=== PATIENT | female | born 1945 | race Caucasian/White ===

== ENCOUNTER → 2016-06-28 | Day surgery (SDC) | payer MEDICARE ==
[~2016-06-28] MED LIST: BACITRACIN OINT 1 EACH PACKET TOPICAL ONE; LIDOCAINE 1% INJ 10MG/ML (20 ML MDV) ONE; SODIUM BICARB 4% 5 ML VIAL (0.48 MEQ/ML) ONE
--- NOTE | 2016-06-28 11:11 | MM ---
EXAMINATION TYPE: MG stereo VAD BX RT DATE OF EXAM: 06/28/2016 9:31 AM COMPARISON: Mammogram 05/23/2016 and 05/20/2016 CLINICAL HISTORY: Abnormal mammogram TECHNIQUE: Stereotactic guided core biopsy of right breast. FINDINGS: The procedure of stereotactic guided core biopsy was explained to the patient. Benefits, alternatives, and risks were discussed. An informed consent was then obtained. [facility] Shortness pathway was utilized. I performed the localization, then surgeon, Dr. Ivan Robb performed the remainder of the procedure. A vacuum assisted biopsy gun was used to obtain multiple core samples. The patient tolerated the procedure well without any immediate complication. The patient was kept in the radiology department for short stay after the procedure and then discharged home in stable condition. Targeted calcifications are identified in specimen mammogram. Post biopsy mammogram shows the clip to appear in satisfactory position relative to the targeted area of concern on the preprocedure images. IMPRESSION: SUCCESSFUL, UNCOMPLICATED STEREOTACTIC GUIDED CORE BIOPSY OF AREA OF CONCERN IN THE right BREAST, FULL PATHOLOGY RESULTS TO FOLLOW. 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 SEE SURGICAL PATHOLOGY CANCER CASE SUMMARY. Recommendation Surgical consult of the right breast. LEIA
--- NOTE | 2016-06-28 15:39 | PCN ---
DATE OF PROCEDURE: PREPROCEDURE DIAGNOSIS: Microcalcifications, right breast. POSTPROCEDURE DIAGNOSIS: Microcalcifications, right breast. PROCEDURE: Stereotactic right breast, core biopsy. SURGEON: Dr. Suarez. ANESTHESIA: Local. PROCEDURE: The patient was placed in the stereotactic table and the area of concern in the right breast was localized. 1% lidocaine was used to anesthetize the area of concern. The needle was driven to the correct coordinates. Multiple core biopsies were obtained. Radiograph of the specimen revealed that the area of concern had been sampled showing microcalcifications in the specimen. A marking clip was left behind. Specimens were sent for pathologic evaluation. The patient tolerated the procedure in stable condition.
== END ==
LOC: RADMAMWWP 07:22
PROVIDERS: ATTEND Surgery
DX: D05.11 Intraductal carcinoma in situ of right breast (principal); N64.89 Other specified disorders of breast; R92.8 Other abnormal and inconclusive findings on diagnostic imaging of breast; Z88.8 Allergy status to other drugs, medicaments and biological substances
CPT/HCPCS: 88305; 88342; 88341; 19081; A4648; J2001

== ENCOUNTER → 2016-07-04 | Outpatient (CLI) | payer MEDICARE ==
--- NOTE | 2016-07-04 16:12 | US ---
EXAMINATION TYPE: US thyroid st tissue head/neck DATE OF EXAM: 07/04/2016 3:39 PM COMPARISON: NONE TECHNIQUE: Multiple sonographic images of the thyroid gland are obtained. CLINICAL HISTORY: 70-year-old female with secondary hypertension, hair loss, fatigue. FINDINGS: Right Lobe: 3.7 x 1.6 x 1.4cm Left Lobe: 3.7 x 2.3 1.1cm Isthmus Thickness: 0.1cm Overall homogeneous glandular parenchyma. Somewhat low positioning of the thyroid gland especially th e left lobe causes difficulty in obtaining sagittal images. No discrete nodule is seen. IMPRESSION: Slightly low positioning of the thyroid gland causing some technical difficulties during visualizatio n. No discrete nodule is seen.
== END | disposition home or self-care (01) ==
LOC: RADUSMAIN 14:47
PROVIDERS: ATTEND Internal Medicine Endocrinology, Diabetes & Metabolism
DX: I15.9 Secondary hypertension, unspecified (principal)
CPT/HCPCS: 36415; 76536; 84439; 84443; 84480

== ENCOUNTER 2016-07-14 22:52 | Emergency (ER) | payer MEDICARE ==
[2016-07-14 23:13] VITALS: TEMP 98.1
[2016-07-15 00:13] LABS: Basophils % (A) 1 %; CH 32.6; CHCM 34.4; Eosinophils # (A) 0.1 k/uL (0-0.7); Eosinophils % (A) 2 %; HCT 42.4 % (34.0-46.0); HDW 2.45; HGB 14.1 gm/dL (11.4-16.0); Luc # (Auto) 0.11; Luc % (Auto) 2; Lymphocytes # (A) 2.9 k/uL (1.0-4.8); Lymphocytes % (A) 47 %; MCH 31.7 pg (25.0-35.0); MCHC 33.3 g/dL (31.0-37.0); MCV 95.2 fL (80.0-100.0); Mean Platelet Volume 7.6; Monocytes # (A) 0.4 k/uL (0-1.0); Monocytes % (A) 6 %; Neutrophils # (A) 2.7 k/uL (1.3-7.7); Neutrophils % (A) 43 %; RBC 4.46 m/uL (3.80-5.40); RDW 12.4 % (11.5-15.5); WBC 6.2 k/uL (3.8-10.6); WBC (Perox) 5.94
[2016-07-15 00:22] LABS: Partial Thromboplastin Time 22.4 sec (22.0-30.0); Prothrombin Time 9.9 sec (9.0-12.0)
--- NOTE | 2016-07-15 00:28 | XR ---
EXAMINATION TYPE: XR chest 2V DATE OF EXAM: 07/15/2016 12:18 AM COMPARISON: 09/25/2015 HISTORY: Chest pain TECHNIQUE: Frontal and lateral views of the chest are obtained. FINDINGS: Mild chronic interstitial lung changes are suggested. There is no focal air space opacity, pleural effusion, or pneumothorax seen. The cardiac silhouette size is within normal limits. The osseous structures are intact. IMPRESSION: 1. No acute cardiopulmonary process. 2. No significant interval change.
[2016-07-15 00:29] LABS: ALT 34 U/L (9-52); AST 26 U/L (14-36); Alkaline Phosphatase 93 U/L (38-126); Anion Gap 11 mmol/L; Blood Urea Nitrogen 21 mg/dL (7-17); Calcium 9.9 mg/dL (8.4-10.2); Carbon Dioxide 27 mmol/L (22-30); Chloride 105 mmol/L (98-107); Glucose 96 mg/dL (74-99); Magnesium 2.3 mg/dL (1.6-2.3); Non-African American GFR(MDRD) >60 (>60 ml/min/1.73 sqM); Sodium 143 mmol/L (137-145); Total Bilirubin 0.4 mg/dL (0.2-1.3); Total Protein 6.8 g/dL (6.3-8.2)
[2016-07-15 00:32] LABS: Creatine Kinase 61 U/L (30-135)
[2016-07-15] MEDS ORDERED: hydrALAZINE HCL 20 MG/ML 1 ML VIAL IVP STA (00:43)
[2016-07-15 00:45] LABS: Creatine Kinase MB 0.8 ng/mL (0.0-2.4); Troponin I <0.012 ng/mL (0.000-0.034)
--- NOTE | 2016-07-15 00:47 | ED ---
General Adult HPI - General Chief complaint: Recheck/Abnormal Lab/Rx Stated complaint: Hypertension Time Seen by Provider: 07/14/16 23:48 Source: patient, RN notes reviewed Mode of arrival: ambulatory Limitations: no limitations - History of Present Illness Initial comments: This is a 70-year-old female who presents with high blood pressure. Patient states she has had a recen increase in the dose of her blood pressure medication and has been keeping a log of blood pressures at home. Patient states when her systolic blood pressure reached over to 200 she was concerned and came to the EC. Patient states she gets intermittent panic attacks over the past year. Patient states they've been getting worse due to her recent diagnosis of right-sided breast cancer 6 weeks ago. Patient is not receiving any current treatment for this. Patient states her high blood pressure today triggered another panic attack. Patient complains of chest tightness in the EC today but denies any shortness of breath. Patient denies any headache, visual changes, dizziness. Patient states she took her blood pressure medication. Patient also admits that she has "whitecoat syndrome". Patient states she is following with her doctor to try to figure out why her blood pressure is not controlled on blood pressure medication. Patient denies any recent fever, chills , abdominal pain, nausea/vomiting/diarrhea, back pain, numbness, tingling, hematuria, or any other complaints. - Related Data Home Medications Medication Instructions Recorded Confirmed Ascorbic Acid [Vitamin C] 1,000 mg PO DAILY 09/02/15 07/14/16 Aspirin [Adult Low Dose Aspirin EC] 81 mg PO DAILY 09/02/15 07/14/16 Cholecalciferol [Vitamin D3] 5,000 unit PO DAILY 09/02/15 07/14/16 Gotu Claude [Gotu Claude Herb] 435 mg PO DAILY 09/02/15 07/14/16 Magnesium Oxide [Mag-Ox] 250 mg PO DAILY 09/02/15 07/14/16 [place]-3 Fatty Acids/Fish Oil [Fish 1 cap PO DAILY 09/02/15 07/14/16 Oil 1,000 mg Softgel] Selenium 100 mcg PO DAILY 09/02/15 07/14/16 Ubidecarenone [Co Q-10] 100 mg PO DAILY 09/02/15 07/14/16 Vitamin A 10,000 unit PO DAILY 09/02/15 07/14/16 Vitamin B Complex 1 cap PO DAILY 09/02/15 07/14/16 Witches Broom Cap 1 cap PO HS 09/02/15 07/14/16 Zinc 50 mg PO DAILY 09/02/15 07/14/16 ALPRAZolam [Xanax] 1 mg PO Q8HR PRN 07/14/16 07/14/16 Atenolol [Tenormin] 50 mg PO BID 07/14/16 07/14/16 Melatonin 5 mg PO HS 07/14/16 07/14/16 Previous Rx's Medication Instructions Recorded Lisinopril [Zestril] 20 mg PO DAILY #30 tab 09/26/15 Allergies Allergy/AdvReac Type Severity Reaction Status Date / Time clonidine Allergy Syncope Verified 07/14/16 23:14 amlodipine besylate AdvReac Swelling Verified 09/25/15 13:37 [From Norvasc] methylprednisolone AdvReac Hallucinati Verified 09/25/15 13:37 ons sulfamethoxazole AdvReac Unknown Verified 09/25/15 13:37 [From Bactrim] trimethoprim [From Bactrim] AdvReac Unknown Verified 09/25/15 13:37 Review of Systems ROS Statement: Those systems with pertinent positive or pertinent negative responses have been documented in the HPI. ROS Other: All systems not noted in ROS Statement are negative. Past Medical History Past Medical History: Chest Pain / Angina, Hypertension Additional Past Medical History / Comment(s): osteoporosis, SINUS PROBLEMS, PAST STRESS TEST,BRONCHITIS,SKIN CANCER History of Any Multi-Drug Resistant Organisms: None Reported Past Surgical History: No Surgical Hx Reported Past Anesthesia/Blood Transfusion Reactions: No Reported Reaction Past Psychological History: Anxiety Smoking Status: Never smoker Past Alcohol Use History: None Reported Past Drug Use History: None Reported - Past Family History Mother Family Medical History: Cancer Additional Family Medical History / Comment(s): breast to bone cancer Father Family Medical History: Hypertension Additional Family Medical History / Comment(s): ashd General Exam - General Exam Comments Initial Comments: General: The patient is awake and alert, in no distress, and does not appear acutely ill. Eye: Pupils are equal, round and reactive to light, extra-ocular movements are intact. No nystagmus. There is normal conjunctiva bilaterally. No signs of icterus. Ears: TMs pink and pearly with intact cone of light bilaterally. Normal external ear canals Nose: Nasal turbinates pink and moist Mouth and throat: There are moist mucous membranes and no oral lesions. Neck: The neck is supple, there is no tenderness or JVD. Cardiovascular: There is a regular rate and rhythm. No murmur, rub or gallop is appreciated. Respiratory: Lungs are clear to auscultation, respirations are non-labored, breath sounds are equal. No wheezes, stridor, rales, or rhonchi. Gastrointestinal: Soft, non-distended, non-tender abdomen without masses or organomegaly noted. There is no rebound or guarding present. No CVA tenderness. Bowel sounds are unremarkable. Musculoskeletal: Normal ROM, no tenderness. Strength 5/5. Sensation intact. Radial pulses equal bilaterally 2+. Neurological: A&O x 3. CN II-XII intact, There are no obvious motor or sensory deficits. Coordination appears grossly intact. Speech is normal. Skin: Skin is warm and dry and no rashes or lesions are noted. Psychiatric: Cooperative, appropriate mood & affect, normal judgment. Limitations: no limitations Course Vital Signs 07/14/16 07/15/16 07/15/16 23:10 00:05 01:22 Temperature 98.1 F Pulse Rate 81 83 Respiratory 18 16 Rate Blood Pressure 238/116 209/110 168/85 O2 Sat by Pulse 98 98 Oximetry 07/15/16 02:30 Temperature Pulse Rate 79 Respiratory 16 Rate Blood Pressure 161/92 O2 Sat by Pulse 99 Oximetry EKG Findings - EKG Comments: EKG Findings:: An EKG was done at 2347 showing normal sinus rhythm, ventricular rate of 75, ME interval of 186, QTc of 417. There are no acute ST changes. This EKG was compared to an EKG on 09/26/2015 showing similar results. Medical Decision Making - Medical Decision Making This is a 70-year-old female who presents with high blood pressure. Patient is also complaining of chest tightness. On physical exam everything is within normal limits. There are no signs of end organ damage. Labs were drawn and reviewed. Cardiac enzymes were negative for any acute process. Patient was given 10 mg of hydralazine in the EC today which decreased her blood pressure. After this patient states she is feeling much better. Patient denies any chest pain or chest tightness upon reexamination. An EKG was done at 2347 showing normal sinus rhythm, ventricular rate of 75, ME interval of 186, QTc of 417. There are no acute ST changes. This EKG was compared to an EKG on 09/26/2015 showing similar results. I explained the results to the patient. Patient states she was feeling much better. I discussed return parameters. I discussed the patient should call her doctor tomorrow to discuss blood pressure medication. Discussed that patient should follow up with PCP in one to 2 days or return to the EC for any worsening symptoms or for any further concerns. Patient was receptive to this plan and patient will be discharged home. - Lab Data Result diagrams: 07/15/16 00:01 07/15/16 00:01 Lab Results 07/15/16 07/15/16 07/15/16 Range/Units 00:01 00:01 00:01 WBC 6.2 (3.8-10.6) k/uL RBC 4.46 (3.80-5.40) m/uL Hgb 14.1 (11.4-16.0) gm/dL Hct 42.4 (34.0-46.0) % MCV 95.2 (80.0-100.0) fL MCH 31.7 (25.0-35.0) pg MCHC 33.3 (31.0-37.0) g/dL RDW 12.4 (11.5-15.5) % Plt Count 230 (150-450) k/uL Neutrophils % 43 % Lymphocytes % 47 % Monocytes % 6 % Eosinophils % 2 % Basophils % 1 % Neutrophils # 2.7 (1.3-7.7) k/uL Lymphocytes # 2.9 (1.0-4.8) k/uL Monocytes # 0.4 (0-1.0) k/uL Eosinophils # 0.1 (0-0.7) k/uL Basophils # 0.0 (0-0.2) k/uL PT (9.0-12.0) sec INR (<1.1) APTT (22.0-30.0) sec Sodium 143 (137-145) mmol/L Potassium 4.0 (3.5-5.1) mmol/L Chloride 105 (98-107) mmol/L Carbon Dioxide 27 (22-30) mmol/L Anion Gap 11 mmol/L BUN 21 H (7-17) mg/dL Creatinine 0.80 (0.52-1.04) mg/dL Est GFR (MDRD) Af Amer >60 (>60 ml/min/1.73 sqM) Est GFR (MDRD) Non-Af >60 (>60 ml/min/1.73 sqM) Glucose 96 (74-99) mg/dL Calcium 9.9 (8.4-10.2) mg/dL Magnesium 2.3 (1.6-2.3) mg/dL Total Bilirubin 0.4 (0.2-1.3) mg/dL AST 26 (14-36) U/L ALT 34 (9-52) U/L Alkaline Phosphatase 93 (38-126) U/L Total Creatine Kinase 61 (30-135) U/L CK-MB (CK-2) 0.8 (0.0-2.4) ng/mL CK-MB (CK-2) Rel Index 1.3 Troponin I <0.012 (0.000-0.034) ng/mL Total Protein 6.8 (6.3-8.2) g/dL Albumin 4.0 (3.5-5.0) g/dL 07/15/16 Range/Units 00:01 WBC (3.8-10.6) k/uL RBC (3.80-5.40) m/uL Hgb (11.4-16.0) gm/dL Hct (34.0-46.0) % MCV (80.0-100.0) fL MCH (25.0-35.0) pg MCHC (31.0-37.0) g/dL RDW (11.5-15.5) % Plt Count (150-450) k/uL Neutrophils % % Lymphocytes % % Monocytes % % Eosinophils % % Basophils % % Neutrophils # (1.3-7.7) k/uL Lymphocytes # (1.0-4.8) k/uL Monocytes # (0-1.0) k/uL Eosinophils # (0-0.7) k/uL Basophils # (0-0.2) k/uL PT 9.9 (9.0-12.0) sec INR 1.0 (<1.1) APTT 22.4 (22.0-30.0) sec Sodium (137-145) mmol/L Potassium (3.5-5.1) mmol/L Chloride (98-107) mmol/L Carbon Dioxide (22-30) mmol/L Anion Gap mmol/L BUN (7-17) mg/dL Creatinine (0.52-1.04) mg/dL Est GFR (MDRD) Af Amer (>60 ml/min/1.73 sqM) Est GFR (MDRD) Non-Af (>60 ml/min/1.73 sqM) Glucose (74-99) mg/dL Calcium (8.4-10.2) mg/dL Magnesium (1.6-2.3) mg/dL Total Bilirubin (0.2-1.3) mg/dL AST (14-36) U/L ALT (9-52) U/L Alkaline Phosphatase (38-126) U/L Total Creatine Kinase (30-135) U/L CK-MB (CK-2) (0.0-2.4) ng/mL CK-MB (CK-2) Rel Index Troponin I (0.000-0.034) ng/mL Total Protein (6.3-8.2) g/dL Albumin (3.5-5.0) g/dL Disposition Clinical Impression: Hypertension Disposition: HOME SELF-CARE Condition: Good Instructions: Hypertension (ED) Additional Instructions: Please contact your doctor tomorrow to discuss blood pressure management. Please return to the EC for any worsening symptoms or for any further concerns. Referrals: Aris Jarrell MD [Primary Care Provider] - 1-2 days Time of Disposition: 02:05
[2016-07-15 01:27] VITALS: RESP 16
[2016-07-15 03:06] VITALS: BP 161/92; PULSE 79
== END 2016-07-15 02:30 | disposition home or self-care (01) ==
LOC: EC 22:52
DX: I10 Essential (primary) hypertension (principal); F41.0 Panic disorder [episodic paroxysmal anxiety]; R07.89 Other chest pain; C50.911 Malignant neoplasm of unspecified site of right female breast; M81.0 Age-related osteoporosis without current pathological fracture; Z79.82 Long term (current) use of aspirin; Z79.899 Other long term (current) drug therapy; Z88.8 Allergy status to other drugs, medicaments and biological substances; Z88.1 Allergy status to other antibiotic agents; Z88.2 Allergy status to sulfonamides; Z85.828 Personal history of other malignant neoplasm of skin; F41.9 Anxiety disorder, unspecified
CPT/HCPCS: 36415; 93005; 80053; 82550; 82553; 83735; 84484; 85025; 85610; 85730; 71020; 96374; 99284; J0360

== ENCOUNTER 2016-07-18 07:11 | Day surgery (SDC) | payer MEDICARE ==
--- NOTE | 2016-07-17 07:55 | P.GSHP ---
History of Present Illness H&P Date: 07/17/16 Chief Complaint: Right breast ductal carcinoma in situ This is a 70-year-old female who presents today for right breast lumpectomy with needle localization. The patient had a previous core biopsy performed by Dr. Margoth Robb. The patient was found has ductal carcinoma in situ with comedonecrosis. Patient had extensive counseling after her biopsy was performed. She has elected to undergo right breast lumpectomy . - Constitutional Comment: High anxiety Constitutional: Reports as per HPI - Psychiatric Psychiatric: Reports anxiety, Reports anxiety attacks, Reports depression Past Medical History Past Medical History: Chest Pain / Angina, Hypertension Additional Past Medical History / Comment(s): osteoporosis, SINUS PROBLEMS, PAST STRESS TEST,BRONCHITIS,SKIN CANCER History of Any Multi-Drug Resistant Organisms: None Reported Past Surgical History: No Surgical Hx Reported Past Anesthesia/Blood Transfusion Reactions: No Reported Reaction Past Psychological History: Anxiety Smoking Status: Never smoker Past Alcohol Use History: None Reported Past Drug Use History: None Reported - Past Family History Mother Family Medical History: Cancer Additional Family Medical History / Comment(s): breast to bone cancer Father Family Medical History: Hypertension Additional Family Medical History / Comment(s): ashd Medications and Allergies Home Medications Medication Instructions Recorded Confirmed Type Ascorbic Acid [Vitamin C] 1,000 mg PO DAILY 09/02/15 07/14/16 History Aspirin [Adult Low Dose Aspirin EC] 81 mg PO DAILY 09/02/15 07/14/16 History Cholecalciferol [Vitamin D3] 5,000 unit PO DAILY 09/02/15 07/14/16 History Gotu Claude [Gotu Claude Herb] 435 mg PO DAILY 09/02/15 07/14/16 History Magnesium Oxide [Mag-Ox] 250 mg PO DAILY 09/02/15 07/14/16 History [place]-3 Fatty Acids/Fish Oil [Fish 1 cap PO DAILY 09/02/15 07/14/16 History Oil 1,000 mg Softgel] Selenium 100 mcg PO DAILY 09/02/15 07/14/16 History Ubidecarenone [Co Q-10] 100 mg PO DAILY 09/02/15 07/14/16 History Vitamin A 10,000 unit PO DAILY 09/02/15 07/14/16 History Vitamin B Complex 1 cap PO DAILY 09/02/15 07/14/16 History Witches Broom Cap 1 cap PO HS 09/02/15 07/14/16 History Zinc 50 mg PO DAILY 09/02/15 07/14/16 History ALPRAZolam [Xanax] 1 mg PO Q8HR PRN 07/14/16 07/14/16 History Atenolol [Tenormin] 50 mg PO BID 07/14/16 07/14/16 History Melatonin 5 mg PO HS 07/14/16 07/14/16 History Allergies Allergy/AdvReac Type Severity Reaction Status Date / Time clonidine Allergy Syncope Verified 07/14/16 23:14 amlodipine besylate AdvReac Swelling Verified 09/25/15 13:37 [From Norvasc] methylprednisolone AdvReac Hallucinati Verified 09/25/15 13:37 ons sulfamethoxazole AdvReac Unknown Verified 09/25/15 13:37 [From Bactrim] trimethoprim [From Bactrim] AdvReac Unknown Verified 09/25/15 13:37 Surgical - Exam - General well developed, no distress - Eyes PERRL - ENT normal pinna - Neck no masses - Respiratory normal expansion - Cardiovascular Rhythm: regular - Abdomen Abdomen: soft, non tender Breasts exam is within normal limits. There is no masses palpated. There is no cervical or axillary lymphadenopathy. Assessment and Plan Plan: Right breast ductal carcinoma in situ. We'll perform right breast needle localized lumpectomy.
[2016-07-17 10:16] VITALS: BMI 23.8
[~2016-07-18 07:11] MED LIST changes: -BACITRACIN OINT 1 EACH PACKET TOPICAL ONE; +DEXAMETHASONE SOD PHOSPHATE 10 MG/ML 1 ML VIAL IV ONE; +HEPARIN SODIUM,PORCINE 5,000 UNIT/ML 1 ML VIAL SQ ONE; +HYDROmorphone 1 MG/ML 1 ML SYRINGE IVP PRN; +LACTATED RINGERS 1,000 ML IV SCH; +LIDOCAINE 1% 20 ML VIAL (10MG/ML) FOR IV START INTRADERMA PRN; -LIDOCAINE 1% INJ 10MG/ML (20 ML MDV) ONE; +LORazepam 2 MG/ML SYRINGE IV STA; +MIDAZOLAM 2 MG/2 ML VIAL IV PRN; +ONDANSETRON 4 MG/2 ML VIAL IVP ONE; +SCOPOLAMINE 1.5MG/72HR PATCH TRANSDERM ONE; -SODIUM BICARB 4% 5 ML VIAL (0.48 MEQ/ML) ONE; +ceFAZolin 2 GM in SODIUM CHLORIDE 0.9% 100 ML IVPB ONE
[2016-07-18] MEDS ORDERED: SODIUM BICARB 4% 5 ML VIAL (0.48 MEQ/ML) MISCELLANE ONE (08:52)
[2016-07-18] MEDS ORDERED: LIDOCAINE 1% INJ 10MG/ML (20 ML MDV) SQ ONE (08:52)
[2016-07-18 09:51] VITALS: RESP 16
[2016-07-18] MEDS ORDERED: BUPIVACAIN-EPI 0.25%-1:200,000 30 ML VIAL SQ ONE ×2 (09:51)
[2016-07-18] MEDS ORDERED: fentaNYL (PF) 50 MCG/ML 2 ML AMP ONE (10:33)
[2016-07-18] MEDS ORDERED: ePHEDrine 50 MG/ML 1 ML AMP ONE (10:33)
[2016-07-18] MEDS ORDERED: GLYCOPYRROLATE 0.2 MG/ML 2 ML VIAL ONE (10:33)
[2016-07-18] MEDS ORDERED: SUCCINYLCHOLINE CHLORIDE 100 MG/5 ML SYR IV ONE (10:33)
[2016-07-18] MEDS ORDERED: PROPOFOL 10 MG/ML 20 ML VIAL IV ONE (10:33)
[2016-07-18] MEDS ORDERED: NALOXONE 0.4 MG/ML 1 ML VIAL ONE (10:33)
[2016-07-18] MEDS ORDERED: MIDAZOLAM 2 MG/2 ML VIAL ONE (10:33)
[2016-07-18] MEDS ORDERED: LIDOCAINE 1% INJ 10MG/ML (20 ML MDV) ONE (10:33)
--- NOTE | 2016-07-18 11:25 | P.OP ---
Date of Procedure: 07/18/16 Preoperative Diagnosis: Right breast ductal carcinoma in situ Postoperative Diagnosis: Right breast ductal carcinoma in situ Procedure(s) Performed: Right breast lumpectomy with needle localization Anesthesia: MAC Surgeon: Joe Singh Estimated Blood Loss (ml): 5 Pathology: other (Right breast lumpectomy) Condition: stable Disposition: PACU Description of Procedure: The patient's placed the operative table in the supine position. She received general anesthesia. Her right breast was prepped and draped in usual sterile fashion. The skin was incised and the wire site and then using the Harmonic scissors a core of tissue around the wire was removed. The specimen contained the clip. The specimen was painted and orientated. The wound was checked for hemostasis. There is no bleeding seen. The skin was closed interrupted 3-0 Monocryl suture. Dermabond was applied. Patient top procedure well was sent to recovery in stable condition.
[2016-07-18 11:53] VITALS: TEMP 97
[2016-07-18] MEDS ORDERED: LACTATED RINGERS 1,000 ML IV ONE (12:05)
[2016-07-18] MEDS ORDERED: HYDROcodone/APAP 7.5-325MG 1 EACH TAB PO ONE (13:11)
[2016-07-18] MEDS ORDERED: hydrALAZINE HCL 20 MG/ML 1 ML VIAL IV ONE (13:23)
[2016-07-18 13:45] VITALS: PULSE 87
[2016-07-18 14:43] VITALS: BP 125/72
--- NOTE | 2016-07-19 07:54 | MM ---
EXAMINATION TYPE: MG pre op needle loc RT, MG surgical specimen RT DATE OF EXAM: 07/18/2016 9:26 AM COMPARISON: NONE CLINICAL HISTORY: Malignancy, localization of microclip marker TECHNIQUE: Needle localization with wire placement and surgical excision of area of concern in the right breast. FINDINGS: The procedure of needle localization with wire placement and than surgical excision was explained to the patient. Benefits, alternatives, and risks were discussed. An informed consent was then obtained. The shortest pathway for procedure was chosen. The overlying skin was prepped and draped in usual sterile fashion. Lidocaine buffered with bicarbonate was used as anesthetic into the skin and subcutaneous tissue up to the level of area of concern. A 5 cm needle was used. It was placed under mammographic guidance. Subsequent 90 degrees mammogram show the needle to be in satisfactory position relative to the targeted area. At this point, wire was placed and the needle was withdrawn. The wire was fixed to patient's skin. Images were marked for surgeon. The patient tolerated the procedure well without any immediate complication. The patient was kept in the radiology department for short stay after the procedure and then taken to surgery for surgical excision. Clip and wire are identified in specimen mammogram. The patient was kept in hospital for short stay after the procedure and then discharged home in stable condition. IMPRESSION: Successful, uncomplicated needle localization with wire placement and surgical excision of microclip marker in the right breast, full pathology results to follow. Pathology Results: Malignant BREAST, RIGHT, NEEDLE LOCALIZATION EXCISION: DUCTAL CARCINOMA IN SITU (DCIS), MARGINS NEGATIVE. SEE SURGICAL PATHOLOGY CANCER CASE SUMMARY. Recommendation Surgical consult of the right breast. LEIA
== END 2016-07-18 14:24 | disposition home or self-care (01) ==
LOC: OR 07:11
PROVIDERS: ATTEND Surgery
DX: D05.11 Intraductal carcinoma in situ of right breast (principal); N64.1 Fat necrosis of breast; I10 Essential (primary) hypertension; M81.0 Age-related osteoporosis without current pathological fracture; F41.9 Anxiety disorder, unspecified; Z80.3 Family history of malignant neoplasm of breast; Z80.8 Family history of malignant neoplasm of other organs or systems; Z79.82 Long term (current) use of aspirin; Z79.899 Other long term (current) drug therapy; Z88.2 Allergy status to sulfonamides; Z88.8 Allergy status to other drugs, medicaments and biological substances; N62 Hypertrophy of breast; D24.1 Benign neoplasm of right breast
CPT/HCPCS: 19301; 88307; 76098; 19281; J2250; J0360; J1644; J1100; J2310; J0690; J2405; J2001; J3010; J0330; J2704

== ENCOUNTER 2016-07-20 11:54 | Emergency (ER) | payer MEDICARE ==
[2016-07-20] MEDS ORDERED: hydrALAZINE HCL 20 MG/ML 1 ML VIAL IVP STA (12:30)
[2016-07-20 12:51] LABS: Basophils % (A) 0 %; CH 32.6; CHCM 33.5; Eosinophils # (A) 0.2 k/uL (0-0.7); Eosinophils % (A) 3 %; HCT 40.8 % (34.0-46.0); HDW 2.38; HGB 13.4 gm/dL (11.4-16.0); Luc # (Auto) 0.13; Luc % (Auto) 2; Lymphocytes # (A) 2.2 k/uL (1.0-4.8); Lymphocytes % (A) 33 %; MCH 32.1 pg (25.0-35.0); MCHC 32.9 g/dL (31.0-37.0); MCV 97.8 fL (80.0-100.0); Mean Platelet Volume 6.9; Monocytes # (A) 0.4 k/uL (0-1.0); Monocytes % (A) 5 %; Neutrophils # (A) 3.8 k/uL (1.3-7.7); Neutrophils % (A) 57 %; RBC 4.18 m/uL (3.80-5.40); RDW 12.7 % (11.5-15.5); WBC 6.6 k/uL (3.8-10.6); WBC (Perox) 6.49
[2016-07-20 13:02] LABS: ALT 43 U/L (9-52); AST 32 U/L (14-36); Alkaline Phosphatase 76 U/L (38-126); Anion Gap 7 mmol/L; Blood Urea Nitrogen 14 mg/dL (7-17); Calcium 9.2 mg/dL (8.4-10.2); Carbon Dioxide 29 mmol/L (22-30); Chloride 106 mmol/L (98-107); Glucose 94 mg/dL (74-99); Non-African American GFR(MDRD) >60 (>60 ml/min/1.73 sqM); Sodium 142 mmol/L (137-145); Total Bilirubin 0.5 mg/dL (0.2-1.3); Total Protein 6.4 g/dL (6.3-8.2)
[2016-07-20 13:24] VITALS: RESP 16
--- NOTE | 2016-07-20 13:24 | ED ---
General Adult HPI - General Chief complaint: Recheck/Abnormal Lab/Rx Stated complaint: htn Time Seen by Provider: 07/20/16 12:27 Source: patient, RN notes reviewed Mode of arrival: wheelchair Limitations: no limitations - History of Present Illness Initial comments: 70-year-old female presents emergency Department with chief complaint hypertension. Patient states that she's been having problems with her blood pressure over the last month or so. Patient states that she currently seen fire control mechanic for secondary hypertension. Patient states that she's had recent testing including thyroid testing, thyroid AN UPCOMING RENAL ULTRASOUND. PATIENT STATES SHE CURRENTLY IS TAKING ATENOLOL 50 MG TWICE A DAY AND LISINOPRIL 20 MG TWICE A DAY. PATIENT STATES HER ATENOLOL HAS BEEN INCREASED IN THE LAST MONTH OR SO. PATIENT STATES SHE FOLLOW-UP WITH HER PRIMARY CARE PHYSICIAN DR. Gomez AFTER HER RECENT ER VISIT. PATIENT STATES THAT THEY PLACED HER ON LEXAPRO BECAUSE SHE WAS COMPLAINING OF ANXIETY. SHE STATES THAT HER BLOOD PRESSURE STILL OUT OF CONTROL.. Patient also states that she had a recent lumpectomy by Dr. Singh for breast cancer. - Related Data Home Medications Medication Instructions Recorded Confirmed Ascorbic Acid [Vitamin C] 1,000 mg PO DAILY 09/02/15 07/20/16 Aspirin [Adult Low Dose Aspirin EC] 81 mg PO DAILY 09/02/15 07/20/16 Cholecalciferol [Vitamin D3] 5,000 unit PO DAILY 09/02/15 07/20/16 Gotu Claude [Gotu Claude Herb] 435 mg PO DAILY 09/02/15 07/20/16 [place]-3 Fatty Acids/Fish Oil [Fish 1 cap PO DAILY 09/02/15 07/20/16 Oil 1,000 mg Softgel] Ubidecarenone [Co Q-10] 100 mg PO DAILY 09/02/15 07/20/16 Vitamin A 10,000 unit PO DAILY 09/02/15 07/20/16 Vitamin B Complex 1 cap PO DAILY 09/02/15 07/20/16 Zinc 50 mg PO DAILY 09/02/15 07/20/16 ALPRAZolam [Xanax] 1 mg PO Q8HR PRN 07/14/16 07/20/16 Atenolol [Tenormin] 50 mg PO BID 07/14/16 07/20/16 Melatonin 5 mg PO HS 07/14/16 07/20/16 Biotin 5,000 mcg PO DAILY 07/17/16 07/20/16 Wholesaler's Broom 1 tab PO DAILY 07/17/16 07/20/16 Lisinopril [Zestril] 20 mg PO BID 07/17/16 07/20/16 Potassium 99 mg PO DAILY 07/17/16 07/20/16 Vitamin E (Dl,Tocopheryl Acet) 400 unit PO DAILY 07/17/16 07/20/16 [Vitamin E] Escitalopram [Lexapro] 10 mg PO DAILY 07/20/16 07/20/16 HYDROcodone/APAP 7.5-325MG [[place] 1 tab PO Q4H PRN 07/20/16 07/20/16 7.5] Allergies Allergy/AdvReac Type Severity Reaction Status Date / Time clonidine Allergy Syncope Verified 07/20/16 12:45 amlodipine besylate AdvReac Swelling Verified 07/20/16 12:45 [From Norvasc] methylprednisolone AdvReac Hallucinati Verified 07/20/16 12:45 ons sulfamethoxazole AdvReac Unknown Verified 07/20/16 12:45 [From Bactrim] trimethoprim [From Bactrim] AdvReac Unknown Verified 07/20/16 12:45 Review of Systems ROS Statement: Those systems with pertinent positive or pertinent negative responses have been documented in the HPI. ROS Other: All systems not noted in ROS Statement are negative. Past Medical History Past Medical History: Cancer, Chest Pain / Angina, Hypertension Additional Past Medical History / Comment(s): osteoporosis,SKIN CANCER, History of Any Multi-Drug Resistant Organisms: None Reported Past Surgical History: Breast Surgery Past Anesthesia/Blood Transfusion Reactions: No Reported Reaction Past Psychological History: Anxiety Smoking Status: Never smoker Past Alcohol Use History: None Reported Past Drug Use History: None Reported - Past Family History Mother Family Medical History: Cancer Additional Family Medical History / Comment(s): breast cancer Father Family Medical History: Cancer Additional Family Medical History / Comment(s): lip cancer General Exam Limitations: no limitations General appearance: alert, in no apparent distress Head exam: Present: atraumatic, normocephalic, normal inspection Eye exam: Present: normal appearance, PERRL, EOMI. Absent: scleral icterus, conjunctival injection, periorbital swelling Neck exam: Present: normal inspection, full ROM. Absent: tenderness, meningismus, lymphadenopathy Respiratory exam: Present: normal lung sounds bilaterally. Absent: respiratory distress, wheezes, rales, rhonchi, stridor Cardiovascular Exam: Present: regular rate, normal rhythm, normal heart sounds. Absent: systolic murmur, diastolic murmur, rubs, gallop, clicks Neurological exam: Present: alert, oriented X3, CN II-XII intact Skin exam: Present: warm, dry, intact, normal color. Absent: rash Course Vital Signs 07/20/16 07/20/16 07/20/16 12:02 12:59 13:23 Temperature 98.3 F Pulse Rate 66 64 66 Respiratory 18 18 16 Rate Blood Pressure 239/107 230/107 187/90 O2 Sat by Pulse 98 98 98 Oximetry 07/20/16 13:33 Temperature Pulse Rate 66 Respiratory 16 Rate Blood Pressure 169/74 O2 Sat by Pulse 99 Oximetry EKG Findings - EKG Comments: EKG Findings:: EKG performed at 12:50 normal sinus rhythm with a rate of 60. [place] interval 164, QRS duration 76, QT/QTC 422/422 Medical Decision Making - Medical Decision Making 70-year-old female presented for hypertension. Patient had multiple this for hypertension. Patient was given Lexapro as it was anxiety. Patient remains hypertensive. Patient will be given increased dose of atenolol to 75 mg twice a day. Patient's heart rate has been in the 70s here in emergency department. Patient will be discharged with close follow-up return parameters discussed. - Lab Data Result diagrams: 07/20/16 12:35 07/20/16 12:35 Lab Results 07/20/16 07/20/16 07/20/16 Range/Units 12:35 12:35 12:35 WBC 6.6 (3.8-10.6) k/uL RBC 4.18 (3.80-5.40) m/uL Hgb 13.4 (11.4-16.0) gm/dL Hct 40.8 (34.0-46.0) % MCV 97.8 (80.0-100.0) fL MCH 32.1 (25.0-35.0) pg MCHC 32.9 (31.0-37.0) g/dL RDW 12.7 (11.5-15.5) % Plt Count 222 (150-450) k/uL Neutrophils % 57 % Lymphocytes % 33 % Monocytes % 5 % Eosinophils % 3 % Basophils % 0 % Neutrophils # 3.8 (1.3-7.7) k/uL Lymphocytes # 2.2 (1.0-4.8) k/uL Monocytes # 0.4 (0-1.0) k/uL Eosinophils # 0.2 (0-0.7) k/uL Basophils # 0.0 (0-0.2) k/uL Sodium 142 (137-145) mmol/L Potassium 4.0 (3.5-5.1) mmol/L Chloride 106 (98-107) mmol/L Carbon Dioxide 29 (22-30) mmol/L Anion Gap 7 mmol/L BUN 14 (7-17) mg/dL Creatinine 0.80 (0.52-1.04) mg/dL Est GFR (MDRD) Af Amer >60 (>60 ml/min/1.73 sqM) Est GFR (MDRD) Non-Af >60 (>60 ml/min/1.73 sqM) Glucose 94 (74-99) mg/dL Calcium 9.2 (8.4-10.2) mg/dL Total Bilirubin 0.5 (0.2-1.3) mg/dL AST 32 (14-36) U/L ALT 43 (9-52) U/L Alkaline Phosphatase 76 (38-126) U/L Troponin I <0.012 (0.000-0.034) ng/mL Total Protein 6.4 (6.3-8.2) g/dL Albumin 3.8 (3.5-5.0) g/dL Disposition Clinical Impression: Hypertension Disposition: HOME SELF-CARE Condition: Stable Instructions: Hypertension (ED) Additional Instructions: Please follow-up with your primary care physician and fire control mechanic. Take 75 mg( 1 1/2 tabs) of your atenolol twice daily.Please return to the Emergency Department if symptoms worsen or any other concerns. Time of Disposition: 13:55
[2016-07-20 14:40] VITALS: BP 154/86; PULSE 73; TEMP 98.6
== END 2016-07-20 14:49 | disposition home or self-care (01) ==
LOC: EC 11:54
DX: I10 Essential (primary) hypertension (principal); F41.9 Anxiety disorder, unspecified; M81.0 Age-related osteoporosis without current pathological fracture; Z79.82 Long term (current) use of aspirin; Z79.899 Other long term (current) drug therapy; Z88.8 Allergy status to other drugs, medicaments and biological substances; Z88.2 Allergy status to sulfonamides; Z88.1 Allergy status to other antibiotic agents; Z85.828 Personal history of other malignant neoplasm of skin
CPT/HCPCS: 36415; 93005; 80053; 84484; 85025; 96374; 99283; J0360

== ENCOUNTER → 2016-07-23 | Outpatient (CLI) | payer MEDICARE ==
--- NOTE | 2016-07-23 15:40 | US ---
EXAMINATION TYPE: US renal artery duplex complete DATE OF EXAM: 07/23/2016 8:49 AM COMPARISON: NONE CLINICAL HISTORY: I10 HTN. terminal clerk HTN, recently uncontrolled MEASUREMENTS: RENAL SIZE: Rt Kidney: 10.3 x 4.3 x3.9 cm Lt Kidney: 9.8 x 4.2 x 4.9 cm RESISTANCE INDEX Right: .69 Left: .64 RA/AO RATIO (< 3.5 ) Right: 1.3 Left: 1.1 RA VELOCITY ( < 180 cm/s) Right: 149 Left: 124 aorta unremarkable, small amount of fluid in renal pelvis thought likely to represent extrarenal pel ves. No evidence for renal artery stenosis by ultrasound criteria, good upstroke on segmentals at brittany al hilum, low resistive waveforms throughout. Grayscale, color Doppler, spectral Doppler imaging performed of the abdominal aorta, segmental and ar mel arteries. IMPRESSION: Renal artery stenosis is not evident.
== END | disposition home or self-care (01) ==
LOC: RADUSWWP 07-17 15:31
PROVIDERS: ATTEND Family Medicine
DX: I10 Essential (primary) hypertension (principal)
CPT/HCPCS: 76098; 93975

== ENCOUNTER 2016-08-17 20:58 | Observation (INO) | payer MEDICARE ==
[2016-08-17] MEDS ORDERED: ASPIRIN 81 MG CHEW PO STA (21:24)
[2016-08-17] MEDS ORDERED: NITROGLYCERIN OINT 1 INCH/GM PACKET TOPICAL STA (21:24)
[2016-08-17] MEDS ORDERED: LABETALOL SYRINGE 5 MG/ML IVP STA (21:25)
[2016-08-17] MEDS ORDERED: LORazepam 2 MG/ML SYRINGE IV STA (21:25)
[2016-08-17] MEDS ORDERED: NITROGLYCERIN SL TABS 0.4 MG TAB SUBLINGUAL STA (21:26)
--- NOTE | 2016-08-17 21:30 | ED ---
General Adult HPI - General Chief complaint: Chest Pain Stated complaint: Chest pain Time Seen by Provider: 08/17/16 21:10 Source: patient, family, RN notes reviewed Mode of arrival: wheelchair Limitations: no limitations - History of Present Illness Initial comments: This is a 70-year-old female comes into the emergency department with a past medical history significant for hypertension and breast cancer for which she has recently been treated. Patient comes in tonight because she is feeling prickling tingling sensation in the center of her chest she states it lasts for a few minutes makes a little short of breath and he continues to be intermittent since about 4:00. Patient states there is no radiation of the pain however she is nauseated with the pain on occasion. Patient denies any palpitations. Patient denies any headache patient denies any visual disturbance. Patient denies any numbness weakness. Patient denies lightheadedness dizziness or numbness in left side. Patient states she has been weaning herself off atenolol recently. Patient is doing this without her physician's knowledge. Patient states she also has quite a bit of anxiety about the cancer and just her baseline anxiety as well. Patient denies any recent vomiting or diarrhea. Patient denies any recent fever she states she has a chronic cough from the lisinopril but hasn't changed at all recently. - Related Data Home Medications Medication Instructions Recorded Confirmed Ascorbic Acid [Vitamin C] 1,000 mg PO DAILY 09/02/15 08/17/16 Aspirin [Adult Low Dose Aspirin EC] 81 mg PO DAILY 09/02/15 08/17/16 Cholecalciferol [Vitamin D3] 5,000 unit PO DAILY 09/02/15 08/17/16 Gotu Claude [Gotu Claude Herb] 435 mg PO DAILY 09/02/15 08/17/16 [place]-3 Fatty Acids/Fish Oil [Fish 1 cap PO DAILY 09/02/15 08/17/16 Oil 1,000 mg Softgel] Ubidecarenone [Co Q-10] 100 mg PO DAILY 09/02/15 08/17/16 Vitamin A 10,000 unit PO DAILY 09/02/15 08/17/16 Vitamin B Complex 1 cap PO DAILY 09/02/15 08/17/16 Zinc 50 mg PO DAILY 09/02/15 08/17/16 ALPRAZolam [Xanax] 1 mg PO Q8HR PRN 01/22/17 02/25/17 Atenolol [Tenormin] 50 mg PO BID 07/14/16 08/17/16 Melatonin 5 mg PO HS 07/14/16 08/17/16 Biotin 5,000 mcg PO DAILY 07/17/16 08/17/16 Plant Wrapper's Broom 1 tab PO DAILY 07/17/16 08/17/16 Lisinopril [Zestril] 20 mg PO BID 07/17/16 08/17/16 Potassium 99 mg PO DAILY 07/17/16 08/17/16 Vitamin E (Dl,Tocopheryl Acet) 400 unit PO DAILY 07/17/16 08/17/16 [Vitamin E] Escitalopram [Lexapro] 10 mg PO DAILY 07/20/16 08/17/16 HYDROcodone/APAP 7.5-325MG [[place] 1 tab PO Q4H PRN 07/20/16 08/17/16 7.5] Allergies Allergy/AdvReac Type Severity Reaction Status Date / Time clonidine Allergy Syncope Verified 08/17/16 21:14 amlodipine besylate AdvReac Swelling Verified 08/17/16 21:14 [From Norvasc] methylprednisolone AdvReac Hallucinati Verified 08/17/16 21:14 ons sulfamethoxazole AdvReac Unknown Verified 08/17/16 21:14 [From Bactrim] trimethoprim [From Bactrim] AdvReac Unknown Verified 08/17/16 21:14 Review of Systems ROS Statement: Those systems with pertinent positive or pertinent negative responses have been documented in the HPI. ROS Other: All systems not noted in ROS Statement are negative. Past Medical History Past Medical History: Cancer, Chest Pain / Angina, Hypertension Additional Past Medical History / Comment(s): osteoporosis,SKIN CANCER, History of Any Multi-Drug Resistant Organisms: None Reported Past Surgical History: Breast Surgery Past Anesthesia/Blood Transfusion Reactions: No Reported Reaction Past Psychological History: Anxiety Smoking Status: Never smoker Past Alcohol Use History: None Reported Past Drug Use History: None Reported - Past Family History Mother Family Medical History: Cancer Additional Family Medical History / Comment(s): breast cancer Father Family Medical History: Cancer Additional Family Medical History / Comment(s): lip cancer General Exam - General Exam Comments Initial Comments: GENERAL: Patient is well-developed and well-nourished. Patient is nontoxic and well- hydrated and is in no acute distress. Patient's blood pressure 253/123 ENT: Neck is soft and supple. No significant lymphadenopathy is noted. Oropharynx is clear. Moist mucous membranes. Neck has full range of motion without eliciting any pain. EYES: The sclera were anicteric and conjunctiva were pink and moist. Extraocular movements were intact and pupils were equal round and reactive to light. Eyelids were unremarkable. PULMONARY: Unlabored respirations. Good breath sounds bilaterally. No audible rales rhonchi or wheezing was noted. CARDIOVASCULAR: There is a regular rate and rhythm without any murmurs gallops or rubs. ABDOMEN: Soft and nontender with normal bowel sounds. No palpable organomegaly was noted. There is no palpable pulsatile mass. SKIN: Skin is clear with no lesions or rashes and otherwise unremarkable. NEUROLOGIC: Patient is alert and oriented x3. Cranial nerves II through XII are grossly intact. Motor and sensory are also intact. Normal speech, volume and content. Symmetrical smile. MUSCULOSKELETAL: Normal extremities with adequate strength and full range of motion. No lower extremity swelling or edema. No calf tenderness. LYMPHATICS: No significant lymphadenopathy is noted PSYCHIATRIC: Normal psychiatric evaluation. Normal interpersonal interactions appears functionally intact in deals appropriately with others. No signs of depression. Patient is moderately anxious Limitations: no limitations Course Vital Signs 08/17/16 08/17/16 08/17/16 21:12 21:42 21:52 Temperature 98.0 F Pulse Rate 74 67 69 Respiratory 18 18 18 Rate Blood Pressure 258/126 211/112 147/85 O2 Sat by Pulse 99 97 98 Oximetry 08/17/16 08/17/16 08/17/16 22:10 22:20 22:30 Temperature Pulse Rate 68 64 64 Respiratory 16 18 16 Rate Blood Pressure 163/90 151/88 139/82 O2 Sat by Pulse 97 98 97 Oximetry 08/17/16 22:59 Temperature Pulse Rate 66 Respiratory 16 Rate Blood Pressure 158/84 O2 Sat by Pulse 98 Oximetry Medical Decision Making - Medical Decision Making EKG shows a normal sinus rhythm at 69 bpm IA interval is 180 QRS is 72 QT interval 396 QTC is 424. Patient's EKG shows no ST segment elevation however there is slight ST segment depression in leads V5 and V6. Chest x-ray shows no acute abnormality. Patient had complete relief with nitroglycerin. I started the patient on heparin. I spoke with Dr. James admitted the patient to consult cardiology. Patient's blood pressure came down nicely with nitroglycerin and Ativan. - Lab Data Result diagrams: 08/17/16 21:40 08/17/16 21:40 Lab Results 08/17/16 08/17/16 08/17/16 Range/Units 21:40 21:40 21:40 WBC 7.0 (3.8-10.6) k/uL RBC 4.44 (3.80-5.40) m/uL Hgb 14.4 (11.4-16.0) gm/dL Hct 42.9 (34.0-46.0) % MCV 96.5 (80.0-100.0) fL MCH 32.4 (25.0-35.0) pg MCHC 33.6 (31.0-37.0) g/dL RDW 12.9 (11.5-15.5) % Plt Count 238 (150-450) k/uL Neutrophils % 45 % Lymphocytes % 43 % Monocytes % 6 % Eosinophils % 2 % Basophils % 1 % Neutrophils # 3.1 (1.3-7.7) k/uL Lymphocytes # 3.0 (1.0-4.8) k/uL Monocytes # 0.4 (0-1.0) k/uL Eosinophils # 0.2 (0-0.7) k/uL Basophils # 0.1 (0-0.2) k/uL PT (9.0-12.0) sec INR (<1.1) APTT (22.0-30.0) sec Sodium 142 (137-145) mmol/L Potassium 4.1 (3.5-5.1) mmol/L Chloride 106 (98-107) mmol/L Carbon Dioxide 25 (22-30) mmol/L Anion Gap 11 mmol/L BUN 18 H (7-17) mg/dL Creatinine 0.75 (0.52-1.04) mg/dL Est GFR (MDRD) Af Amer >60 (>60 ml/min/1.73 sqM) Est GFR (MDRD) Non-Af >60 (>60 ml/min/1.73 sqM) Glucose 91 (74-99) mg/dL Calcium 9.4 (8.4-10.2) mg/dL Magnesium 2.3 (1.6-2.3) mg/dL Total Bilirubin 0.6 (0.2-1.3) mg/dL AST 31 (14-36) U/L ALT 27 (9-52) U/L Alkaline Phosphatase 84 (38-126) U/L Total Creatine Kinase 51 (30-135) U/L CK-MB (CK-2) 0.6 (0.0-2.4) ng/mL CK-MB (CK-2) Rel Index 1.2 Troponin I <0.012 (0.000-0.034) ng/mL Total Protein 7.4 (6.3-8.2) g/dL Albumin 4.3 (3.5-5.0) g/dL 08/17/16 Range/Units 21:40 WBC (3.8-10.6) k/uL RBC (3.80-5.40) m/uL Hgb (11.4-16.0) gm/dL Hct (34.0-46.0) % MCV (80.0-100.0) fL MCH (25.0-35.0) pg MCHC (31.0-37.0) g/dL RDW (11.5-15.5) % Plt Count (150-450) k/uL Neutrophils % % Lymphocytes % % Monocytes % % Eosinophils % % Basophils % % Neutrophils # (1.3-7.7) k/uL Lymphocytes # (1.0-4.8) k/uL Monocytes # (0-1.0) k/uL Eosinophils # (0-0.7) k/uL Basophils # (0-0.2) k/uL PT 9.8 (9.0-12.0) sec INR 1.0 (<1.1) APTT 23.1 (22.0-30.0) sec Sodium (137-145) mmol/L Potassium (3.5-5.1) mmol/L Chloride (98-107) mmol/L Carbon Dioxide (22-30) mmol/L Anion Gap mmol/L BUN (7-17) mg/dL Creatinine (0.52-1.04) mg/dL Est GFR (MDRD) Af Amer (>60 ml/min/1.73 sqM) Est GFR (MDRD) Non-Af (>60 ml/min/1.73 sqM) Glucose (74-99) mg/dL Calcium (8.4-10.2) mg/dL Magnesium (1.6-2.3) mg/dL Total Bilirubin (0.2-1.3) mg/dL AST (14-36) U/L ALT (9-52) U/L Alkaline Phosphatase (38-126) U/L Total Creatine Kinase (30-135) U/L CK-MB (CK-2) (0.0-2.4) ng/mL CK-MB (CK-2) Rel Index Troponin I (0.000-0.034) ng/mL Total Protein (6.3-8.2) g/dL Albumin (3.5-5.0) g/dL Critical Care Time Critical Care Time: Yes Total Critical Care Time: 35 Disposition Clinical Impression: Unstable angina, Hypertensive urgency Disposition: ADMITTED IP TO THIS [facility] Time of Disposition: 23:21
[2016-08-17 21:57] LABS: Basophils # (A) 0.1 k/uL (0-0.2); Basophils % (A) 1 %; CH 32.7; Eosinophils # (A) 0.2 k/uL (0-0.7); Eosinophils % (A) 2 %; HCT 42.9 % (34.0-46.0); HDW 2.47; HGB 14.4 gm/dL (11.4-16.0); Luc # (Auto) 0.22; Luc % (Auto) 3; Lymphocytes % (A) 43 %; MCH 32.4 pg (25.0-35.0); MCHC 33.6 g/dL (31.0-37.0); MCV 96.5 fL (80.0-100.0); Monocytes # (A) 0.4 k/uL (0-1.0); Monocytes % (A) 6 %; Neutrophils # (A) 3.1 k/uL (1.3-7.7); Neutrophils % (A) 45 %; RBC 4.44 m/uL (3.80-5.40); RDW 12.9 % (11.5-15.5); WBC (Perox) 7.01
[2016-08-17 22:06] LABS: ALT 27 U/L (9-52); AST 31 U/L (14-36); Alkaline Phosphatase 84 U/L (38-126); Anion Gap 11 mmol/L; Blood Urea Nitrogen 18 mg/dL (7-17); Calcium 9.4 mg/dL (8.4-10.2); Carbon Dioxide 25 mmol/L (22-30); Chloride 106 mmol/L (98-107); Glucose 91 mg/dL (74-99); Magnesium 2.3 mg/dL (1.6-2.3); Non-African American GFR(MDRD) >60 (>60 ml/min/1.73 sqM); Potassium 4.1 mmol/L (3.5-5.1); Sodium 142 mmol/L (137-145); Total Bilirubin 0.6 mg/dL (0.2-1.3); Total Protein 7.4 g/dL (6.3-8.2)
[2016-08-17 22:09] LABS: Creatine Kinase 51 U/L (30-135)
[2016-08-17 22:11] LABS: Partial Thromboplastin Time 23.1 sec (22.0-30.0); Prothrombin Time 9.8 sec (9.0-12.0)
[2016-08-17 22:22] LABS: Creatine Kinase MB 0.6 ng/mL (0.0-2.4); Troponin I <0.012 ng/mL (0.000-0.034)
--- NOTE | 2016-08-17 23:00 | XR ---
EXAM: XR Chest, 2 Views. CLINICAL HISTORY: Reason: Chest Pain TECHNIQUE: Frontal and lateral views of the chest. COMPARISON: 07/15/16 two-view chest. FINDINGS: Lungs: Minimal biapical pleural parenchymal thickening suggesting scarring is stable. No new infiltrate is seen. Pleural spaces: Unremarkable. No pneumothorax. Heart: Unremarkable. No cardiomegaly. Mediastinum: Mild aortic ectasia is stable. Bones: Stable including mild rightward curvature of the upper lumbar spine. IMPRESSION: No significant interval change. No new acute intrathoracic abnormality seen.
[2016-08-17] MEDS ORDERED: HEPARIN SODIUM,PORCINE 5,000 UNIT/ML 1 ML VIAL IV ONE (23:20)
[2016-08-17] MEDS ORDERED: NITROGLYCERIN SL TABS 0.4 MG TAB SUBLINGUAL PRN (23:21)
[2016-08-17] MEDS ORDERED: HEPARIN SODIUM,PORCINE/D5W PMX 25,000 UNIT in DEXTROSE/WATER 1 500ML.BAG IV SCH (23:30)
[2016-08-18 00:57] VITALS: BMI 24.0
[2016-08-18 01:48] LABS: Appearance,Urine Clear (Clear); Bilirubin,Urine Negative (Negative); Glucose,Urine (UA) Negative (Negative); Ketones,Urine Negative (Negative); Leukocyte Esterase,Urine Small (Negative); Nitrite,Urine Negative (Negative); PH, Urine 7.5 (5.0-8.0); Particle Count 283; Protein,Urine Negative (Negative); RBC,Urine <1 /hpf (0-5); Specific Gravity,Urine 1.002 (1.001-1.035); UA Billing (MACRO vs. MICRO) MICRO; Urobilinogen,Urine <2.0 mg/dL (<2.0); WBC,Urine 3 /hpf (0-5)
[2016-08-18 03:47] LABS: Creatine Kinase 36 U/L (30-135)
[2016-08-18 04:00] LABS: Creatine Kinase MB 0.4 ng/mL (0.0-2.4); Troponin I <0.012 ng/mL (0.000-0.034)
[2016-08-18] MEDS: NITROGLYCERIN OINT 1 INCH/GM PACKET TOPICAL SCH ×4 (04:58→23:54)
[2016-08-18 05:38] LABS: Cholesterol 174 mg/dL (<200); HDL Cholesterol 56 mg/dL (40-60); Triglycerides 55 mg/dL (<150)
[2016-08-18] MEDS ORDERED: ASPIRIN 325 MG TAB PO SCH (09:00)
[2016-08-18 09:01] LABS: Creatine Kinase 34 U/L (30-135)
[2016-08-18 09:13] LABS: Creatine Kinase MB 0.5 ng/mL (0.0-2.4); Troponin I <0.012 ng/mL (0.000-0.034)
[2016-08-18] MEDS ORDERED: ALPRAZolam 0.5 MG TAB PO PRN (11:02)
[2016-08-18] MEDS ORDERED: HYDROcodone/APAP 7.5-325MG 1 EACH TAB PO PRN (11:02)
[2016-08-18] MEDS ORDERED: ATENOLOL 50 MG TAB PO SCH (11:15)
[2016-08-18] MEDS: LISINOPRIL 20 MG TAB PO SCH ×2 (11:45→20:18)
[2016-08-18] MEDS: ESCITALOPRAM 10 MG TAB PO SCH (11:45)
[2016-08-18] MEDS: ASPIRIN 81 MG CHEW PO SCH (11:45)
[2016-08-18] MEDS: MAGNESIUM OXIDE 400 MG TAB PO SCH (11:46)
[2016-08-18] MEDS ORDERED: ATENOLOL 25 MG TAB PO SCH (12:00)
[2016-08-18] MEDS: POTASSIUM CHLORIDE ORAL LIQUID 40 MEQ/30 ML CUP PO SCH (12:33)
[2016-08-18] MEDS: HYDROCHLOROTHIAZIDE 25 MG TAB PO SCH (13:53)
--- NOTE | 2016-08-18 13:57 | CONS ---
DATE OF CONSULTATION: Mrs. Pyle is a 70-year-old female with history of hypertension, who is followed by Dr. Ott on a regular basis who presented with symptoms of chest discomfort. She has been quite anxious recently after being diagnosed with breast CA and underwent right lumpectomy recently. She had some discomfort in the chest yesterday and not related to physical activity and not associated with any dyspnea, dizziness or palpitation. She is reasonably active physically, has no exertional chest pain or dyspnea on exertion. She had a stress test over 2 years ago that was unremarkable. Her blood pressure has been elevated and was elevated on presentation. She has some symptoms of dizziness. She has been no PND, orthopnea, or peripheral edema. She has some dizziness at times but no associated palpitation no syncope. Her coronary risk factors are remarkable for hypertension. She is a nonsmoker, nondiabetic. Medications at home include: 1. Atenolol 75 mg twice a day that was increased recently. 2. Lisinopril 20 mg twice a day. 3. Lexapro 10 mg daily. 4. In addition to aspirin once a day. REVIEW OF SYSTEMS: RESPIRATORY SYSTEM: She has no dyspnea on exertion. No wheezing or cough. GI system: No recent GI bleeding. No peptic ulcer disease. system: No dysuria or hematuria. Nervous system: No stroke or seizure. PHYSICAL EXAMINATION: A 70-year-old female, alert, oriented, in no apparent distress. Blood pressure running in the 190s/90s with the heart rate in the 60s. HEAD: Normocephalic. EYES: Sclerae anicteric. NECK: Good upstroke. No bruits. LUNGS: Clear to auscultation. HEART: Regular rate rhythm. S1, S2, plus S4, no rub. ABDOMEN: Soft, nontender, positive bowel sounds. No organomegaly. EXTREMITIES: No edema. Intact distal pulses. Lab data revealed BUN troponin less than 0.012 for 3 samples. Cholesterol 174, LDL of 107, BUN and creatinine of 18 and 0.75. Hemoglobin of 14.4. The EKG revealed a sinus mechanism, normal axis and intervals, no acute changes. Her chest x-ray shows no acute infiltrate. IMPRESSION: 1. Chest discomfort, has atypical for feature for ischemic heart disease, probably noncardiac. 2. Hypertension, remains elevated. 3. History of breast cancer diagnosed recently. RECOMMENDATIONS: From the cardiac standpoint, I will add hydrochlorothiazide 25 mg daily to her antihypertensive regimen. I will stop the heparin. I will decrease the dose of her beta rashmi because the patient is feeling dizzy. I would recommend to proceed with pharmacological myocardial perfusion imaging tomorrow. If there is no evidence of inducible ischemia, then no further cardiac work-up will be needed. If she has persistent elevated blood pressure, then one of the options is add hydralazine since she had apparently significant edema from the amlodipine. Thank you for this consult. We will follow with you.
--- NOTE | 2016-08-18 16:53 | HP ---
DATE OF ADMISSION: 08/17/2016 PRESENTING COMPLAINT: Tingling in the chest. HISTORY OF PRESENTING COMPLAINT: This is a very pleasant 70 -year-old patient of Dr. Jarrell, who has a history of hypertension, anxiety, osteopenia, patient presented with needle and pin-like sensation in the middle of the chest on and off, lasting for different amount of time. The patient did lift a heavy manure box yesterday and tilt it over. There is no shortness of breath. There is no radiation, no dizziness. No lightheadedness, no perspiration. Patient is concerned about the heart and decided to come in. Patient also had a recent right breast lumpectomy and is really being concerned about the outcome of the breast cancer and very stressed about the same. REVIEW OF SYSTEMS: CONSTITUTIONAL: Tired. HEENT: None. RESPIRATORY: None. CARDIOVASCULAR: No precordial pain. GASTROINTESTINAL: None. GENITOURINARY: None. MUSCULOSKELETAL: None. Dermatological: None. HEMATOLOGICAL: None. LYMPHATICS: None. PSYCHIATRY: Very anxious. NEUROLOGICAL: None. PAST MEDICAL HISTORY: History of hypertension, osteoporosis, skin cancer. Surgeries: Right breast lumpectomy on 07/19/2016. Psych history of anxiety. SOCIAL HISTORY: No smoking. No alcohol. . Family history of breast cancer. HOME MEDICATIONS: 1. Atenolol 75 mg p.o. b.i.d. 2. Zinc 50 mg p.o. daily. 3. Vitamin E 400 units p.o. daily. 4. Vitamin B complex 1 capsule p.o. daily. 5. Vitamin A 10,000 units p.o. daily. 6. CoQ10 100 mg p.o. daily. 7. ( ) 100 mcg p.o. daily. 8. Potassium 99 meq p.o. daily. 9. Melatonin 5 mg p.o. q.h.s. 10. Magnesium oxide 40 mg p.o. daily. 11. Zestril 20 mg p.o. b.i.d. 12. [place] 7.5 1 tablets q.4 p.r.n. 13. Gotuc[place] 35 mg p.o. daily. 14. Fish oil 1200 mg one capsule p.o. daily. 15. Lexapro 10 mg p.o. daily. 16. Vitamin D3 5000 units p.o. daily. 17. Calcium 1000 mg p.o. daily. 18. Witch's brew 1 tablet p.o. daily. 19. Biotin 5000 mcg p.o. daily. 20. Aspirin 81 mg p.o. daily. 21. Vitamin C 1000 mg p.o. daily. 22. Xanax 1 mg p.o. q.8 p.r.n. ALLERGY TO CLONIDINE, AMLODIPINE, ( ) BACTRIM. On examination vital signs on presentation: Temperature 98, pulse 74, respiration 18, blood pressure 250/126, pulse ox 99% on room air on presentation. Repeat blood pressure down to 182/70 this morning. GENERAL APPEARANCE: Average build, sitting up anxious appearing. EYES: Pupils equal. Conjunctivae normal. HEENT: External appearance of nose and ears normal. Oral cavity normal. NECK: JVD not raised. Mass not palpable. RESPIRATORY: Effort normal. Lungs are clear. CARDIOVASCULAR: First and second sounds normal. No edema. ABDOMEN: Soft, nontender. Liver and spleen not palpable. LYMPHATIC: No lymph nodes palpable in or axillae. PSYCHIATRY: Alert and oriented x3. Mood and affect anxious appearing. NEUROLOGICAL: Pupils equal. Cranial nerves grossly intact. Power and sensation grossly intact. INVESTIGATIONS: White count 17, hemoglobin 14.4. Potassium 4.1, BUN 18, creatinine 0.75. Troponin x3 negative. LDL 107. EKG normal sinus rhythm with some LVH. ASSESSMENT: 1. Atypical chest pain non-cardiac sounding really, cardiac sounding, likely musculoskeletal from lifting heavy manure box, but patient's concern is of a cardiac ( ), will get cardiology opinion. 2. Essential hypertension, uncontrolled present on admission. 3. Anxiety, not otherwise specified from underlying breast cancer. Work-up in place. PLAN: Patient's blood pressure medications being adjusted. Cardiology is consulted. Care was discussed with the patient.
[2016-08-18] MEDS: hydrALAZINE HCL 25 MG TAB PO SCH ×2 (17:36→20:18)
[2016-08-18] MEDS: ENOXAPARIN 40 MG/0.4 ML SYRINGE SQ SCH (18:20)
[2016-08-18] MEDS ORDERED: ACETAMINOPHEN TAB 325 MG TAB PO PRN (20:16)
[2016-08-18] MEDS: ATENOLOL 25 MG TAB PO SCH (20:18)
[2016-08-18] MEDS ORDERED: MELATONIN 5 MG TABLET PO SCH (21:00)
[2016-08-19] MEDS: NITROGLYCERIN OINT 1 INCH/GM PACKET TOPICAL SCH (06:03)
[2016-08-19 07:20] LABS: Anion Gap 7 mmol/L; Blood Urea Nitrogen 19 mg/dL (7-17); Calcium 9.1 mg/dL (8.4-10.2); Carbon Dioxide 26 mmol/L (22-30); Chloride 106 mmol/L (98-107); Glucose 91 mg/dL (74-99); Non-African American GFR(MDRD) >60 (>60 ml/min/1.73 sqM); Potassium 4.4 mmol/L (3.5-5.1); Sodium 139 mmol/L (137-145)
[2016-08-19] MEDS ORDERED: REGADENOSON 0.4 MG/5 ML SYRINGE IV ONE ×2 (08:00)
[2016-08-19] MEDS ORDERED: AMINOPHYLLINE 500 MG/20 ML VIAL IV PRN (08:00)
[2016-08-19] MEDS: POTASSIUM CHLORIDE ORAL LIQUID 40 MEQ/30 ML CUP PO SCH (09:02)
[2016-08-19] MEDS: ENOXAPARIN 40 MG/0.4 ML SYRINGE SQ SCH (09:04)
[2016-08-19] MEDS: hydrALAZINE HCL 25 MG TAB PO SCH (09:04)
[2016-08-19] MEDS: ASPIRIN 81 MG CHEW PO SCH (09:04)
[2016-08-19] MEDS: ESCITALOPRAM 10 MG TAB PO SCH (09:04)
[2016-08-19] MEDS: MAGNESIUM OXIDE 400 MG TAB PO SCH (09:05)
[2016-08-19] MEDS: HYDROCHLOROTHIAZIDE 25 MG TAB PO SCH (09:05)
--- NOTE | 2016-08-19 10:19 | ECHOF ---
Referral Reason: MEASUREMENTS -------- HEIGHT: 152.4 cm WEIGHT: 55.8 kg BP: IVSd: 1.2 cm (0.6 - 1.1) LVIDd: 3.6 cm (3.9 - 5.3) LVPWd: 1.2 cm (0.6 - 1.1) IVSs: 1.4 cm LVIDs: 2.8 cm LVPWs: 1.4 cm Ao Diam: 3.2 cm (2.0 - 3.7) AV Cusp: 1.9 cm (1.5 - 2.6) LA Diam: 3.6 cm (2.7 - 3.8) MV EXCURSION: 12.755 mm (> 18.000) MV EF SLOPE: 59 mm/s (70 - 150) EPSS: 0.2 cm MV E [place]: 0.48 m/s MV DecT: 286 ms MV A [place]: 0.75 m/s MV E/A Ratio: 0.64 RAP: 5.00 mmHg RVSP: 9.27 mmHg FINDINGS -------- Sinus rhythm. This was a technically good study. There is mild concentric left ventricular hypertrophy. Overall left ventricular systolic function is low-normal with, an EF between 50 - 55 %. The right ventricle is normal in size. The left atrial size is normal. The right atrial size is normal. There is mild aortic valve sclerosis. There is no evidence of aortic regurgitation. Mild mitral annular calcification present. Mild mitral regurgitation is present. Mild tricuspid regurgitation present. There is no evidence of pulmonary hypertension. The right ventricular systolic pressure, as measured by Doppler, is 9.27mmHg. There is no pulmonic regurgitation present. The aortic root size is normal. There is no pericardial effusion. CONCLUSIONS -------- 1. There is mild concentric left ventricular hypertrophy. 2. Overall left ventricular systolic function is low-normal with, an EF between 50 - 55 %. 3. There is mild aortic valve sclerosis. 4. Mild mitral annular calcification present. 5. Mild mitral regurgitation is present. 6. Mild tricuspid regurgitation present. 7. There is no evidence of pulmonary hypertension. 8. The right ventricular systolic pressure, as measured by Doppler, is 9.27mmHg. FINANCIAL ANALYSIS CONSULTANT: Anna Kruse RDCS
--- NOTE | 2016-08-19 12:03 | PN ---
Mrs. Pyle is a 70-year-old female who presented with symptoms of chest discomfort. She has a history of hypertension. She is feeling better today. She denies any chest pain. Her breathing has been stable. She denies any dizziness. She is ambulating in the room without any difficulty. She continues to be on aspirin once a day, atenolol 50 mg twice a day, Lexapro 10 mg daily, hydrochlorothiazide 25 mg daily, lisinopril 20 mg twice a day, hydralazine 25 mg 3 times a day and Nitro paste. PHYSICAL EXAMINATION: Blood pressure 129/70 with a heart in the 60s. LUNGS: Clear. HEART: Regular rate and rhythm. S1 and S2, no S3, no rub. ABDOMEN: Soft, obese, nontender. EXTREMITIES: No edema. Lab data revealed troponin less than 0.012. Cholesterol 174, LDL of 107, BUN and creatinine 19 and 0.83. IMPRESSION: 1. Hypertension, under better control. 2. Chest discomfort, has atypical feature for ischemic heart disease. 3. Anxiety. 4. Breast cancer. RECOMMENDATION: I will switch her to oral nitrate, proceed with a myocardial perfusion imaging today. If there is no evidence of inducible ischemia, then no further cardiac work-up will be needed and she can follow up as an outpatient with Dr. Ott.
[2016-08-19 12:27] VITALS: BP 178/93; PULSE 77; RESP 18; TEMP 97.4
[2016-08-19] MEDS: ATENOLOL 25 MG TAB PO SCH (12:35)
[2016-08-19] MEDS: LISINOPRIL 20 MG TAB PO SCH (12:35)
--- NOTE | 2016-08-19 12:40 | EST ---
DATE OF SERVICE: 08/19/2016 AGE: 70Y SEX: F HT: 60" WT: 123 lbs. Lexiscan Cardiolite Stress Test *Heart Rate Blood Pressure *Rest: 66 Rest: 152/89 * *Max. Achieved: 118 Maximum BP: 168/93 85% PMHR: - 100% PMHR: - *METS: - INDICATIONS: Chest pain. MEDICATIONS: - Patient was given Lexiscan injection over a period of 15 seconds. The peak heart rate of 118 was achieved. Maximum blood pressure of 168/93 mmHg was noted. Resting EKG shows normal sinus rhythm with normal DC interval and QRS duration and normal ST-T waves. Evidence of ST segment depression during Lexiscan injection. ( ) or any significant angina. FINAL IMPRESSION: There is evidence of ST segment depression during Lexiscan injection which could be secondary to ischemia. All patient's history of hypertension, clinical correlation and the correlation with nuclear study is suggested. There are symptoms of nausea during the Lexiscan injection.
--- NOTE | 2016-08-19 13:13 | NM ---
EXAMINATION TYPE: NM stress lexiscan cardiolite DATE OF EXAM: 08/19/2016 1:07 PM COMPARISON: NONE HISTORY: Chest pain TECHNIQUE: After the intravenous administration of 11 mCi Tc 99m Sestamibi - Cardiolite resting SPEC T images acquired 45 minutes post injection. The patient received 0.4mg Lexiscan, 26.4 mCi Tc 99m Sestamibi - Stress images obtained [address] injection FINDINGS: Review of stress and rest SPECT images demonstrates no distinct perfusion abnormality. Note is made e xam is somewhat limited due to artifact obscuring portions of the inferior myocardium. Gated analysis shows normal wall motion with an estimated left ventricular ejection fraction of 46 %. IMPRESSION: No scintigraphic evidence for reversible ischemia.
--- NOTE | 2016-08-20 09:04 | DS ---
DATE OF ADMISSION: 08/17/2016 DATE OF DISCHARGE: 08/19/2016 FINAL DIAGNOSES: 1. Central anterior chest wall pain, probably musculoskeletal. 2. Essential hypertension, uncontrolled on presentation. 3. Anxiety, not otherwise specified. HOSPITAL COURSE: This patient presented with atypical cardiac sounding presentation, troponins are negative. Patient underwent a Lexiscan stress test that was negative. A 2-D echocardiogram showed An EF of 50% to 55%. This pain is felt to be musculoskeletal, reproducible from excessive physical activity. CONSULTATION: Dr. Saldaña from Cardiology. Care was discussed with the patient. On exam, lungs are clear. CARDIOVASCULAR: First and second sounds are normal. DISCHARGE MEDICATIONS: 1. Vitamin C 500 mg a day. 2. Aspirin 81 mg a day. 3. vitamin D3 five thousand units p.o. daily. 4. Gotu Claude 435 mg p.o. daily. 5. CO-Q10 one hundred mg p.o. daily. 6. Vitamin A 10,000 units p.o. daily. 7. Vitamin B complex 1 capsule p.o. daily. 8. Zinc 50 mg p.o. daily. 9. Xanax 1 mg p.o. q.8 p.r.n. 10. Melatonin 5 mg p.o. q.h.s. 11. Biotin 5000 mcg p.o. daily. 12. Cogentin 1 tablet daily. 13. Potassium 99 daily. 14. Vitamin E 400 units p.o. daily. 15. Lexapro 10 mg p.o. daily. 16. [place] 7.5 one tablet q.4 p.r.n. 17. Atenolol 75 mg p.o. b.i.d. 18. Calcium 1000 mg p.o. daily. 19. Fish oil 1200 mg p.o. daily. 20. Zestril 20 mg p.o. b.i.d. 21. Magnesium oxide 400 mg daily. 22. Selenium 100 mcg p.o. daily. 23. Hydrochlorothiazide 25 mg p.o. daily. 24. Hydralazine 50 mg p.o. t.i.d. Follow up with Dr. Jarrell in 3 days; follow up with Dr. Dia Ott in one week.
== END 2016-08-19 15:24 | disposition home or self-care (01) ==
LOC: EC 20:58 → 3SUR 23:22 → 3OBS 08-18 18:50
PROVIDERS: ADMIT Hospitalist; ATTEND Hospitalist
DX: R07.89 Other chest pain (principal); I10 Essential (primary) hypertension; F41.9 Anxiety disorder, unspecified; C50.919 Malignant neoplasm of unspecified site of unspecified female breast; M81.0 Age-related osteoporosis without current pathological fracture; Z79.82 Long term (current) use of aspirin; Z88.8 Allergy status to other drugs, medicaments and biological substances; Z88.1 Allergy status to other antibiotic agents; Z79.899 Other long term (current) drug therapy; R20.2 Paresthesia of skin; R11.0 Nausea; R05 Cough
CPT/HCPCS: 36415; 93005; 93017; 93306; 80061; 80053; 80048; 82550 ×2; 82553 ×2; 83735; 84484 ×2; 85025; 85610; 85730 ×2; 81001; 71020; 78452; 99291; 96375; 96376; G0378 ×3; A9500; J2060; J1644 ×2; J1650 ×2; J2785; 96365; 96366; 96372

== ENCOUNTER 2016-09-01 22:55 | Observation (INO) | payer MEDICARE ==
[2016-09-01] MEDS ORDERED: METOCLOPRAMIDE 5 MG/ML 2 ML VIAL IVP STA (23:19)
[2016-09-01] MEDS ORDERED: MORPHINE SULFATE 4 MG/ML SYRINGE IV STA (23:19)
--- NOTE | 2016-09-01 23:24 | ED ---
General Adult HPI - General Chief complaint: Headache Stated complaint: Headache Time Seen by Provider: 09/01/16 23:05 Source: patient, family, RN notes reviewed Mode of arrival: wheelchair Limitations: no limitations - History of Present Illness Initial comments: Patient is a pleasant 71-year-old female presenting to the emergency department complaining of headache. Patient states she started Apresoline and hydrochlorothiazide around 10 days ago. Patient has had a constant headache since that time. Gradual onset. Somewhat progressive. Patient believes it may be related to medications. Patient is still having high blood pressure. Headache is mostly bilateral temporal region. No visual change. Patient did have an episode of chest discomfort earlier today. Discomfort is near resolved. Discomfort was sternal. Patient also had some discomfort on her right arm earlier however occasionally has that type of discomfort. - Related Data Home Medications Medication Instructions Recorded Confirmed Ascorbic Acid [Vitamin C] 1,000 mg PO DAILY 09/02/15 09/01/16 Aspirin [Adult Low Dose Aspirin EC] 81 mg PO DAILY 09/02/15 09/01/16 Cholecalciferol [Vitamin D3] 5,000 unit PO DAILY 09/02/15 09/01/16 Gotu Claude [Gotu Claude Herb] 435 mg PO DAILY 09/02/15 09/01/16 Ubidecarenone [Co Q-10] 100 mg PO DAILY 09/02/15 09/01/16 Vitamin A 10,000 unit PO DAILY 09/02/15 09/01/16 Vitamin B Complex 1 cap PO DAILY 09/02/15 09/01/16 Zinc 50 mg PO DAILY 09/02/15 09/01/16 ALPRAZolam [Xanax] 1 mg PO Q8HR PRN 07/14/16 09/01/16 Melatonin 5 mg PO HS 07/14/16 09/01/16 Biotin 5,000 mcg PO DAILY 07/17/16 09/01/16 Teacher Private's Broom 1 tab PO DAILY 07/17/16 09/01/16 Potassium 99 mg PO DAILY 07/17/16 09/01/16 Vitamin E (Dl,Tocopheryl Acet) 400 unit PO DAILY 07/17/16 09/01/16 [Vitamin E] Escitalopram [Lexapro] 10 mg PO DAILY 07/20/16 09/01/16 Atenolol 75 mg PO BID 08/18/16 09/01/16 Calcium 1000mg 1,000 mg PO DAILY 08/18/16 09/01/16 Fish Oil/Dha/Epa [Fish Oil 1,200 1 cap PO DAILY 08/18/16 08/18/16 mg Fish Oil] Lisinopril [Zestril] 20 mg PO BID 08/18/16 09/01/16 Magnesium Oxide 400 mg PO DAILY 08/18/16 09/01/16 Selenium 100 mcg PO DAILY 08/18/16 09/01/16 Previous Rx's Medication Instructions Recorded Hydrochlorothiazide [Hydrodiuril] 25 mg PO DAILY #30 tab 08/19/16 hydrALAZINE HCL [Apresoline] 50 mg PO TID #90 tab 08/19/16 Allergies Allergy/AdvReac Type Severity Reaction Status Date / Time clonidine Allergy Syncope Verified 09/01/16 22:59 amlodipine besylate AdvReac Swelling Verified 09/01/16 22:59 [From Norvasc] methylprednisolone AdvReac Hallucinati Verified 09/01/16 22:59 ons sulfamethoxazole AdvReac Unknown Verified 09/01/16 22:59 [From Bactrim] trimethoprim [From Bactrim] AdvReac Unknown Verified 09/01/16 22:59 Review of Systems ROS Statement: Those systems with pertinent positive or pertinent negative responses have been documented in the HPI. ROS Other: All systems not noted in ROS Statement are negative. Constitutional: Denies: fever Eyes: Denies: eye pain ENT: Denies: ear pain Respiratory: Denies: cough Cardiovascular: Reports: chest pain Endocrine: Denies: fatigue Gastrointestinal: Reports: nausea. Denies: abdominal pain Genitourinary: Denies: dysuria Musculoskeletal: Denies: back pain Skin: Denies: rash Neurological: Reports: headache. Denies: weakness, confusion Past Medical History Past Medical History: Cancer, Chest Pain / Angina, Hypertension Additional Past Medical History / Comment(s): osteoporosis,SKIN CANCER, History of Any Multi-Drug Resistant Organisms: None Reported Past Surgical History: Breast Surgery Additional Past Surgical History / Comment(s): right breast lumpectomy 2016 Past Anesthesia/Blood Transfusion Reactions: No Reported Reaction Past Psychological History: Anxiety Smoking Status: Never smoker Past Alcohol Use History: None Reported Past Drug Use History: None Reported - Past Family History Mother Family Medical History: Cancer Additional Family Medical History / Comment(s): breast cancer Father Family Medical History: Cancer Additional Family Medical History / Comment(s): lip cancer General Exam Limitations: no limitations General appearance: alert, in no apparent distress Head exam: Present: atraumatic Eye exam: Present: normal appearance, PERRL, EOMI. Absent: nystagmus ENT exam: Present: normal oropharynx Neck exam: Present: normal inspection Respiratory exam: Present: normal lung sounds bilaterally. Absent: chest wall tenderness Cardiovascular Exam: Present: regular rate, normal rhythm Expanded Peripheral pulses: 2+: Radial (R), Radial (L), Dorsalis Pedis (R), Dorsalis Pedis (L) GI/Abdominal exam: Present: soft. Absent: tenderness Extremities exam: Present: normal inspection. Absent: pedal edema, calf tenderness Neurological exam: Present: alert, oriented X3, CN II-XII intact. Absent: motor sensory deficit Expanded Patient oriented to: Present: person, place, time Speech: Present: fluid speech Cranial nerves: EOM's Intact: Normal, Facial Sensation: Normal Sensory exam: Upper Extremity Light Touch: Normal, Lower Extremity Light Touch: Normal Motor strength exam: RUE: 5, LUE: 5, RLE: 5, LLE: 5 Eye Response: (4) open spontaneously Motor Response: (6) obeys commands Verbal Response: (5) oriented Psychiatric exam: Present: normal affect, normal mood Skin exam: Absent: rash Course Vital Signs 09/01/16 09/01/16 09/02/16 22:59 23:31 01:06 Temperature 98.2 F Pulse Rate 87 57 L 61 Respiratory 18 16 16 Rate Blood Pressure 190/91 216/95 175/85 O2 Sat by Pulse 98 100 100 Oximetry 09/02/16 02:03 Temperature Pulse Rate 62 Respiratory 16 Rate Blood Pressure 190/77 O2 Sat by Pulse 100 Oximetry - Reevaluation(s) Reevaluation #1: 09/01/16 23:51 Patient refuses morphine and Reglan. Patient states her discomfort is currently only 2/10. Patient states she took a Tylenol earlier. EKG Findings - EKG Comments: EKG Findings:: Normal sinus rhythm at 62. Normal intervals. Normal axis. Normal QRS. LVH criteria. No acute ST change. Medical Decision Making - Medical Decision Making Patient reevaluated and resting comfortably in bed without complaint. Patient and family updated on results and plan. Blood pressure improved to 190/77. Dr. rouse paged for admission for Dr. guerrero. - Lab Data Result diagrams: 09/01/16 22:25 09/01/16 22:25 Lab Results 09/01/16 09/01/16 09/01/16 Range/Units 22:25 22:25 22:25 WBC 6.1 (3.8-10.6) k/uL RBC 4.00 (3.80-5.40) m/uL Hgb 12.8 (11.4-16.0) gm/dL Hct 39.9 (34.0-46.0) % MCV 99.8 (80.0-100.0) fL MCH 32.1 (25.0-35.0) pg MCHC 32.1 (31.0-37.0) g/dL RDW 13.0 (11.5-15.5) % Plt Count 233 (150-450) k/uL Neutrophils % 50 % Lymphocytes % 39 % Monocytes % 5 % Eosinophils % 3 % Basophils % 1 % Neutrophils # 3.0 (1.3-7.7) k/uL Lymphocytes # 2.4 (1.0-4.8) k/uL Monocytes # 0.3 (0-1.0) k/uL Eosinophils # 0.2 (0-0.7) k/uL Basophils # 0.0 (0-0.2) k/uL ESR (0-20) mm/hr PT (9.0-12.0) sec INR (<1.1) APTT (22.0-30.0) sec Sodium 140 (137-145) mmol/L Potassium 4.0 (3.5-5.1) mmol/L Chloride 106 (98-107) mmol/L Carbon Dioxide 26 (22-30) mmol/L Anion Gap 8 mmol/L BUN 16 (7-17) mg/dL Creatinine 0.70 (0.52-1.04) mg/dL Est GFR (MDRD) Af Amer >60 (>60 ml/min/1.73 sqM) Est GFR (MDRD) Non-Af >60 (>60 ml/min/1.73 sqM) Glucose 88 (74-99) mg/dL Calcium 9.5 (8.4-10.2) mg/dL Magnesium 2.3 (1.6-2.3) mg/dL Total Bilirubin 0.5 (0.2-1.3) mg/dL AST 41 H (14-36) U/L ALT 48 (9-52) U/L Alkaline Phosphatase 87 (38-126) U/L Total Creatine Kinase 51 (30-135) U/L CK-MB (CK-2) 0.4 (0.0-2.4) ng/mL CK-MB (CK-2) Rel Index 0.8 Troponin I <0.012 (0.000-0.034) ng/mL Total Protein 6.5 (6.3-8.2) g/dL Albumin 3.8 (3.5-5.0) g/dL 09/01/16 09/01/16 Range/Units 22:25 22:35 WBC (3.8-10.6) k/uL RBC (3.80-5.40) m/uL Hgb (11.4-16.0) gm/dL Hct (34.0-46.0) % MCV (80.0-100.0) fL MCH (25.0-35.0) pg MCHC (31.0-37.0) g/dL RDW (11.5-15.5) % Plt Count (150-450) k/uL Neutrophils % % Lymphocytes % % Monocytes % % Eosinophils % % Basophils % % Neutrophils # (1.3-7.7) k/uL Lymphocytes # (1.0-4.8) k/uL Monocytes # (0-1.0) k/uL Eosinophils # (0-0.7) k/uL Basophils # (0-0.2) k/uL ESR 7 (0-20) mm/hr PT 10.0 (9.0-12.0) sec INR 1.0 (<1.1) APTT 23.5 (22.0-30.0) sec Sodium (137-145) mmol/L Potassium (3.5-5.1) mmol/L Chloride (98-107) mmol/L Carbon Dioxide (22-30) mmol/L Anion Gap mmol/L BUN (7-17) mg/dL Creatinine (0.52-1.04) mg/dL Est GFR (MDRD) Af Amer (>60 ml/min/1.73 sqM) Est GFR (MDRD) Non-Af (>60 ml/min/1.73 sqM) Glucose (74-99) mg/dL Calcium (8.4-10.2) mg/dL Magnesium (1.6-2.3) mg/dL Total Bilirubin (0.2-1.3) mg/dL AST (14-36) U/L ALT (9-52) U/L Alkaline Phosphatase (38-126) U/L Total Creatine Kinase (30-135) U/L CK-MB (CK-2) (0.0-2.4) ng/mL CK-MB (CK-2) Rel Index Troponin I (0.000-0.034) ng/mL Total Protein (6.3-8.2) g/dL Albumin (3.5-5.0) g/dL - Radiology Data Radiology results: report reviewed (Computed tomography scan the brain shows atrophy, no acute process.), image reviewed (Chest x-ray shows no acute process. ) Disposition Clinical Impression: Chest pain, Hypertensive urgency, Cephalgia Disposition: ADMITTED IP TO THIS HOSP
[2016-09-01 23:35] VITALS: RESP 16
[2016-09-01 23:41] LABS: Basophils % (A) 1 %; CH 32.7; CHCM 32.9; Eosinophils # (A) 0.2 k/uL (0-0.7); Eosinophils % (A) 3 %; HCT 39.9 % (34.0-46.0); HDW 2.37; HGB 12.8 gm/dL (11.4-16.0); Luc # (Auto) 0.21; Luc % (Auto) 4; Lymphocytes # (A) 2.4 k/uL (1.0-4.8); Lymphocytes % (A) 39 %; MCH 32.1 pg (25.0-35.0); MCHC 32.1 g/dL (31.0-37.0); MCV 99.8 fL (80.0-100.0); Mean Platelet Volume 7.7; Monocytes # (A) 0.3 k/uL (0-1.0); Monocytes % (A) 5 %; Neutrophils % (A) 50 %; WBC 6.1 k/uL (3.8-10.6); WBC (Perox) 6.41
[2016-09-01] MEDS ORDERED: ENALAPRILAT 1.25 MG/ML 1 ML VIAL IVP STA (23:51)
[2016-09-01 23:52] LABS: ALT 48 U/L (9-52); AST 41 U/L (14-36); Alkaline Phosphatase 87 U/L (38-126); Anion Gap 8 mmol/L; Blood Urea Nitrogen 16 mg/dL (7-17); Calcium 9.5 mg/dL (8.4-10.2); Carbon Dioxide 26 mmol/L (22-30); Chloride 106 mmol/L (98-107); Glucose 88 mg/dL (74-99); Magnesium 2.3 mg/dL (1.6-2.3); Non-African American GFR(MDRD) >60 (>60 ml/min/1.73 sqM); Sodium 140 mmol/L (137-145); Total Bilirubin 0.5 mg/dL (0.2-1.3); Total Protein 6.5 g/dL (6.3-8.2)
[2016-09-01 23:55] LABS: Partial Thromboplastin Time 23.5 sec (22.0-30.0)
[2016-09-02 00:20] LABS: Creatine Kinase 51 U/L (30-135)
[2016-09-02 00:34] LABS: Creatine Kinase MB 0.4 ng/mL (0.0-2.4); Troponin I <0.012 ng/mL (0.000-0.034)
--- NOTE | 2016-09-02 01:57 | CT ---
EXAM: CT Head Without Intravenous Contrast. CLINICAL HISTORY: Reason: headache TECHNIQUE: Axial computed tomography images of the head/brain without intravenous contrast. CTDI is 57.4 mGy and DLP is 1098.8 mGy-cm COMPARISON: No relevant prior studies available. FINDINGS: Brain: Cerebral atrophy and mild chronic white matter ischemic changes. No evidence of acute cerebral infarction or intracranial hemorrhage. No abnormal extra-axial collections identified. Ventricles: No evidence of hydrocephalus. Bones/joints: No acute fracture. Sinuses: Imaged paranasal sinuses and mastoid sinuses are clear. Mastoid air cells: See above. IMPRESSION: No evidence of acute intracranial body. Cerebral atrophy and mild chronic white matter ischemic changes.
--- NOTE | 2016-09-02 02:01 | XR ---
EXAM: XR Chest, 2 Views. CLINICAL HISTORY: Reason: Chest Pain TECHNIQUE: Frontal and lateral views of the chest. COMPARISON: Chest radiographs 08/17/2016 FINDINGS: Lungs: Lungs are clear. Pleural space: No evidence of pleural disease or effusion. No pneumothorax. Heart: Heart size and mediastinal structures are within normal limits. Mediastinum: Unremarkable. Bones/joints: Unremarkable. Other findings: No significant change since 08/17/2016. IMPRESSION: No evidence of active chest disease.
[2016-09-02] MEDS ORDERED: ENALAPRILAT 1.25 MG/ML 1 ML VIAL IVP STA (02:07)
[2016-09-02] MEDS ORDERED: NITROGLYCERIN SL TABS 0.4 MG TAB SUBLINGUAL PRN (02:09)
[2016-09-02] MEDS ORDERED: ASPIRIN 81 MG CHEW PO STA (02:44)
[2016-09-02] MEDS ORDERED: ALPRAZolam 0.5 MG TAB PO STA (02:52)
[2016-09-02 04:14] VITALS: BMI 23.3
[2016-09-02 06:30] LABS: Creatine Kinase 39 U/L (30-135)
[2016-09-02 06:43] LABS: Creatine Kinase MB 0.5 ng/mL (0.0-2.4); Troponin I <0.012 ng/mL (0.000-0.034)
[2016-09-02] MEDS ORDERED: ATENOLOL 25 MG TAB PO SCH (09:00)
[2016-09-02] MEDS ORDERED: LISINOPRIL 20 MG TAB PO SCH (09:00)
[2016-09-02] MEDS ORDERED: ESCITALOPRAM 10 MG TAB PO SCH (09:00)
--- NOTE | 2016-09-02 09:48 | P.CRDCN ---
History of Present Illness Reason for Consult (text): Uncontrolled hypertension History of present illness: This is a 71-year-old white female who came to the emergency room with a complaint of pounding headache patient has been having this headache for the last of 5-6 days. Was recently started on hydrochlorothiazide and hydralazine and according to her this medicines are giving her a headache. Patient has uncontrolled hypertension and see claims that she has a side effects from multiple medications. Patient denies any significant chest pain is myocardial that is no history of previous myocardial infarction. Patient recently had a stress test and the echocardiogram done at our office and they were normal. Past Medical History Past Medical History: Cancer, Chest Pain / Angina, Hypertension Additional Past Medical History / Comment(s): osteoporosis,SKIN CANCER, History of Any Multi-Drug Resistant Organisms: None Reported Past Surgical History: Breast Surgery Additional Past Surgical History / Comment(s): right breast lumpectomy 2016 Past Anesthesia/Blood Transfusion Reactions: No Reported Reaction Past Psychological History: Anxiety Smoking Status: Never smoker Past Alcohol Use History: None Reported Past Drug Use History: None Reported - Past Family History Mother Family Medical History: Cancer Additional Family Medical History / Comment(s): breast cancer Father Family Medical History: Cancer Additional Family Medical History / Comment(s): lip cancer Medications and Allergies Home Medications Medication Instructions Recorded Confirmed Type Ascorbic Acid [Vitamin C] 1,000 mg PO DAILY 09/02/15 09/02/16 History Aspirin [Adult Low Dose Aspirin EC] 81 mg PO DAILY 09/02/15 09/02/16 History Cholecalciferol [Vitamin D3] 5,000 unit PO DAILY 09/02/15 09/02/16 History Gotu Claude [Gotu Claude Herb] 435 mg PO DAILY 09/02/15 09/02/16 History Ubidecarenone [Co Q-10] 100 mg PO DAILY 09/02/15 09/02/16 History Vitamin A 10,000 unit PO DAILY 09/02/15 09/02/16 History Vitamin B Complex 1 cap PO DAILY 09/02/15 09/02/16 History Zinc 50 mg PO DAILY 09/02/15 09/02/16 History ALPRAZolam [Xanax] 1 mg PO Q8HR PRN 07/14/16 09/02/16 History Melatonin 2.5 mg PO HS 07/14/16 09/02/16 History Biotin 5,000 mcg PO DAILY 07/17/16 09/02/16 History Cut Off Man's Broom 1 tab PO DAILY 07/17/16 09/02/16 History Potassium 90 mg PO DAILY 07/17/16 09/02/16 History Vitamin E (Dl,Tocopheryl Acet) 400 unit PO DAILY 07/17/16 09/02/16 History [Vitamin E] Escitalopram [Lexapro] 10 mg PO DAILY 07/20/16 09/02/16 History Atenolol 75 mg PO BID 08/18/16 09/02/16 History Calcium 1000mg 1,000 mg PO DAILY 08/18/16 09/02/16 History Fish Oil/Dha/Epa [Fish Oil 1,200 1 cap PO DAILY 08/18/16 09/02/16 History mg Fish Oil] Lisinopril [Zestril] 40 mg PO BID 08/18/16 09/02/16 History Magnesium Oxide 600 mg PO DAILY 08/18/16 09/02/16 History Selenium 50 mcg PO DAILY 08/18/16 09/02/16 History ALPRAZolam [Xanax] 0.25 mg PO BID PRN 09/02/16 09/02/16 History hydrALAZINE HCL [Apresoline] 50 mg PO TID 09/02/16 09/02/16 History Allergies Allergy/AdvReac Type Severity Reaction Status Date / Time clonidine Allergy Syncope Verified 09/02/16 08:25 amlodipine besylate AdvReac Swelling Verified 09/02/16 08:25 [From Norvasc] methylprednisolone AdvReac Hallucinati Verified 09/02/16 08:25 ons sulfamethoxazole AdvReac Unknown Verified 09/02/16 08:25 [From Bactrim] trimethoprim [From Bactrim] AdvReac Unknown Verified 09/02/16 08:25 Physical Exam Vitals: Vital Signs Temp Pulse Pulse Resp BP BP Pulse Ox 09/02/16 08:00 98.1 F 64 16 146/75 93 L 09/02/16 04:00 98.7 F 64 16 157/70 95 09/02/16 03:23 65 16 168/77 100 Intake and Output 09/01/16 09/02/16 09/02/16 22:59 06:59 14:59 Other: # Voids 1 Weight 56.2 kg Patient is obese and debris. Vital signs are reviewed. HEENT negative. Neck supple no increase in jugular venous pressure no carotid bruit noted. Heart. First and second heart sounds are normal. No murmurs are heard. Lungs clear to auscultation and percussion. Abdomen. Soft no masses felt. Extremities there is no evidence of leg edema pedal pulses are 2+. Patient's EKG is normal. Scan of the brain is normal. Results 09/01/16 22:25 09/01/16 22:25 Cardiac Enzymes 09/02/16 Range/Units 05:21 CK-MB (CK-2) 0.5 (0.0-2.4) ng/mL Troponin I <0.012 (0.000-0.034) ng/mL Current Medications Generic Name Dose Route Start Last Admin Trade Name Freq PRN Reason Stop Dose Admin Aspirin 325 mg 09/03/16 09:00 Aspirin PO DAILY NEFTALI Carvedilol 12.5 mg 09/02/16 09:45 Coreg PO BID-W/MEALS NEFTALI Escitalopram Oxalate 10 mg 09/02/16 09:00 Lexapro PO DAILY NEFTALI HCTZ/Spironolactone 1 each 09/02/16 09:45 Aldactazide 25-25mg PO DAILY NEFTALI Lisinopril 20 mg 09/02/16 09:00 Zestril PO BID NEFTALI Nitroglycerin 0.4 mg 09/02/16 02:09 Nitrostat SUBLINGUAL Q5M PRN Chest Pain Intake and Output 09/01/16 09/02/16 09/02/16 22:59 06:59 14:59 Other: # Voids 1 Weight 56.2 kg Assessment and Plan Plan: This patient is admitted with uncontrolled hypertension and the constant the headache patient has a side effects from multiple medications. We will try the patient on the Coreg 12.5 mg twice a day. Continue zesteril. We will add Aldactazide once a day.
[2016-09-02] MEDS: CARVEDILOL 12.5 MG TAB PO SCH ×2 (11:00→14:06)
[2016-09-02] MEDS: SPIRONOLACTONE-HCTZ 25-25MG 1 EACH TAB PO SCH ×2 (11:01→11:23)
[2016-09-02 11:13] LABS: Creatine Kinase 36 U/L (30-135)
[2016-09-02 11:25] LABS: Creatine Kinase MB 0.4 ng/mL (0.0-2.4); Troponin I <0.012 ng/mL (0.000-0.034)
[2016-09-02] MEDS ORDERED: ALPRAZolam 0.25 MG TAB PO PRN (12:09)
[2016-09-02] MEDS ORDERED: hydrALAZINE HCL 50 MG TAB PO SCH (12:15)
[2016-09-02] MEDS ORDERED: HYDROCHLOROTHIAZIDE 25 MG TAB PO SCH (12:15)
[2016-09-02] MEDS ORDERED: PARoxetine 20 MG TAB PO SCH (12:45)
[2016-09-02] MEDS ORDERED: RX INFO: IV CONTRAST WAS GIVEN 1 EACH MISC MISCELLANE PRN (13:13)
[2016-09-02 15:56] VITALS: BP 143/74; PULSE 72; TEMP 98.4
--- NOTE | 2016-09-02 16:51 | CT ---
EXAMINATION TYPE: CT angio head DATE OF EXAM: 09/02/2016 4:46 PM COMPARISON: NONE HISTORY: Head injury 2 days ago. Hit over left ear. Dizziness, headache, nausea and vomiting. CT DLP: 1183.00 mGycm CONTRAST: CTA [place] with 3-D reconstruction is performed and with IV Contrast, patient injected with 100 mL of Omnipaque 350. Contrast CTA of the [place] was performed 3-D reconstruction imaging obtained at a separate workstation. Vertebrobasilar system as well as intracranial portions of the internal carotid arterie s and their major tributaries are patent. I do not see evidence for sizable aneurysm or vascular mal formation. Please note MRI provides greater sensitivity and specificity. Visualized brain appears g rossly unremarkable. IMPRESSION: No evidence for sizable aneurysm or vascular malformation.
--- NOTE | 2016-09-02 18:23 | HP ---
DATE OF ADMISSION: 09/02/2016 PRESENTING COMPLAINT: Headaches. HISTORY OF PRESENTING COMPLAINT: This is a pleasant 71-year-old patient of Dr. Jarrell who has a history of hypertension, anxiety, osteopenia. Patient has been still rather stressed out, rather anxious about her breast cancer interventions. Patient is also concerned about her blood pressure, which has been running high. Patient is not able to sleep; feels always tired. When patient presented, blood pressure was quite a bit up to about 190 systolic. Patient denies any chest pain. The headache is pounding across, sometimes popping in the ear; just tired and rundown; dizzy sometimes. REVIEW OF SYSTEMS: CONSTITUTIONAL: Tired. HEENT: As above. RESPIRATORY: None. CARDIOVASCULAR: None. GASTROINTESTINAL: None. GENITOURINARY: None. MUSCULOSKELETAL: None. DERMATOLOGIC: None. HEMATOLOGIC: None. LYMPHATICS: None. PSYCHIATRY: Anxious. NEUROLOGICAL: No focal weakness. PAST HISTORY: 1. Hypertension. 2. Osteoporosis. 3. Skin cancer. PAST SURGICAL HISTORY: Right breast lumpectomy on 07/19/16. PSYCH HISTORY: Anxiety. SOCIAL HISTORY: No smoking. No alcohol. . FAMILY HISTORY: Breast cancer. HOME MEDICATIONS: 1. Hydralazine 50 mg p.o. t.i.d. 2. Zestril 20 mg p.o. b.i.d. 3. Lexapro 10 mg p.o. daily. 4. Atenolol 150 mg daily. 5. Aspirin 81 mg daily. 6. Xanax 0.25 p.o. b.i.d. p.r.n. 7. Xanax 1 mg p.o. daily p.r.n. 8. Fish oil 1 capsule p.o. daily. 9. Music Adapter's Broom 1 tablet p.o. daily. 10. Melatonin 2.5 p.o. at bedtime. 11. Gotu Claude Herb. 12. Biotin 5000 mcg p.o. daily. 13. Potassium 90 mg p.o. daily. 14. CoQ10 100 mg p.o. daily. 15. Selenium 50 mcg p.o. daily. 16. Magnesium oxide 600 mg p.o. daily. 17. Vitamin D3 5000 units p.o. daily. 18. Calcium 1000 mg p.o. daily. 19. Vitamin C 1000 mg p.o. daily. 20. Hydrochlorothiazide 25 mg p.o. daily. 21. Vitamin A 10,000 units p.o. daily. 22. Zinc 50 mg p.o. daily. 23. Vitamin E 400 units p.o. daily. 24. Vitamin B complex 1 capsule p.o. daily. ALLERGIES: 1. CLONIDINE. 2. AMLODIPINE. 3. METHYLPREDNISOLONE. 4. BACTRIM. PHYSICAL EXAMINATION: VITAL SIGNS ON PRESENTATION: Temperature 98.2, pulse 87, respiration 18, blood pressure up to 216/95, pulse ox 100% on room air. GENERAL APPEARANCE: Average build. Lying in bed. Anxious-appearing. EYES: Pupils equal. Conjunctivae normal. HEENT: Oral cavity normal. NECK: JVD not raised. Mass not palpable. RESPIRATORY: Effort normal. Lungs are clear. CARDIOVASCULAR: First and second sounds normal. No edema. ABDOMEN: Soft, nontender. Liver and spleen not palpable. LYMPHATIC: No lymph node palpable in neck or axillae. PSYCHIATRY: Alert and oriented x3. Mood and very anxious-appearing. NEUROLOGICAL: Pupils equal. Cranial nerves grossly intact. Power and sensation grossly intact. INVESTIGATIONS: White count 6.1, hemoglobin 12.8, potassium 4.0. Troponin x3 negative. EKG shows normal sinus rhythm. CT scan of the brain shows some cerebral atrophy. ASSESSMENT: 1. Accelerated hypertension with some component of anxiety, making matters worse. 2. Chronic anxiety disorder, uncontrolled. 3. Chronic insomnia from medical conditions. PLAN: Patient does see Dr. Dia Ott as an outpatient. Dr. Lizz Paul from Cardiology is consulted. He put the patient on Coreg 12.5 twice a day. Patient had many questions about her blood pressure medications that were answered. Will switch her to lisinopril hydrochlorothiazide to get better 24-hour coverage. For her uncontrolled anxiety, will switch the patient to Paxil from Lexapro. Patient already is taking melatonin at night. Care was discussed in detail with the patient. Will follow.
[2016-09-02] MEDS ORDERED: MELATONIN 5 MG TABLET PO SCH (21:00)
[2016-09-02] MEDS ORDERED: LISINOPRIL-HCTZ 20-12.5 MG 1 EACH TAB PO SCH (21:00)
[2016-09-03] MEDS ORDERED: ASPIRIN 81 MG CHEW PO SCH (09:00)
[2016-09-03] MEDS ORDERED: ASPIRIN 325 MG TAB PO SCH (09:00)
--- NOTE | 2016-09-04 08:30 | DS ---
DATE OF ADMISSION: 09/02/2016 DATE OF DISCHARGE: 09/02/2016 FINAL DIAGNOSES: 1. Accelerated hypertension, also made worse by anxiety causing cephalgia. 2. Chronic anxiety disorder, uncontrolled. 3. Chronic insomnia from medical condition. 4. Cephalgia from uncontrolled blood pressure. HOSPITAL COURSE: This patient presented with headaches and ( ) blood pressure. Patient is somewhat skeptical about medication. I did talk to her at length and explained to her and adjusted her blood pressure medications. Blood pressure is doing much better by the time of discharge, down to 143/74. On exam, lungs are clear. CARDIOVASCULAR: First and second seconds are normal. CONSULTATIONS: Dr. Lizz Paul from cardiology. Patient did have a CT angio of the brain that was negative. DISCHARGE MEDICATIONS: 1. Vitamin C 1000 mg a day. 2. Aspirin 81 mg a day. 3. Vitamin D3, 5000 units a day. 4. Xanax 1 mg p.o. daily p.r.n. 5. Melatonin 2.5 mg q.h.s. 6. Xanax 0.25 p.o. b.i.d. p.r.n. 7. Coreg 12.5 p.o. b.i.d. 8. Zestoretic 20/12.5 one tablet b.i.d. 9. Paxil 20 mg daily. 10. Aldactone 25 mg daily. Patient's discontinued medications include hydralazine, Lexapro. Follow up with Dr. Devonte Jarrell in 3 days. Follow up with Dr. Dia Ott one week. On exam, lungs are clear. CARDIOVASCULAR: First and second sounds normal.
== END 2016-09-02 19:03 | disposition home or self-care (01) ==
LOC: EC 22:55 → 3OBS 09-02 02:09
PROVIDERS: ADMIT Hospitalist; ATTEND Hospitalist
DX: I10 Essential (primary) hypertension (principal); F41.9 Anxiety disorder, unspecified; F51.04 Psychophysiologic insomnia; M81.0 Age-related osteoporosis without current pathological fracture; C44.90 Unspecified malignant neoplasm of skin, unspecified; Z79.899 Other long term (current) drug therapy; Z79.82 Long term (current) use of aspirin; Z88.2 Allergy status to sulfonamides; Z88.8 Allergy status to other drugs, medicaments and biological substances; Z80.3 Family history of malignant neoplasm of breast; Z80.8 Family history of malignant neoplasm of other organs or systems; E66.9 Obesity, unspecified; Z68.23 Body mass index [BMI] 23.0-23.9, adult
CPT/HCPCS: 96374; 96375; 99285; 36415; 93005; 80053; 85652; 82550 ×2; 82553 ×2; 83735; 84484 ×2; 85025; 85610; 85730; 71020; 70496; 70450; G0378; Q9967

== ENCOUNTER → 2017-01-24 | Outpatient (CLI) | payer MEDICARE ==
--- NOTE | 2017-01-27 09:44 | MM ---
Reason for exam: follow-up at short interval from prior study. Last mammogram was performed 8 months ago. History: Patient is postmenopausal, has history of breast cancer at age 70, and has history of other cancer at age 58. Family history of premenopausal breast cancer in mother at age 45 and breast cancer in maternal aunt. Malignant MG pre op needle loc RT of the right breast, July 18, 2016. Malignant MG stereo VAD BX RT of the right breast, June 28, 2016. Physical Findings: Nurse did not find any significant physical abnormalities on exam. MG 3D Diag Mammo W/Cad GELY Bilateral CC and MLO view(s) were taken. Prior study comparison: July 13, 2016, mammogram. May 20, 2016, bilateral MG screening mammo w CAD. The breast tissue is heterogeneously dense. This may lower the sensitivity of mammography. Post lumpectomy changes on right breast. No significant new findings when compared with previous films. ASSESSMENT: Benign, BI-RAD 2 RECOMMENDATION: Follow-up diagnostic mammogram of both breasts in 1 year.
== END | disposition home or self-care (01) ==
LOC: RADMAMWWP 09:35
PROVIDERS: ATTEND Radiology Radiation Oncology
DX: R92.8 Other abnormal and inconclusive findings on diagnostic imaging of breast (principal)
CPT/HCPCS: G0204; G0279

== ENCOUNTER → 2017-01-29 | Outpatient (CLI) | payer MEDICARE ==
--- NOTE | 2017-01-29 16:41 | BD ---
EXAMINATION TYPE: MG DEXA axial skeleton. DATE OF EXAM: 01/29/2017 COMPARISON: NONE CLINICAL HISTORY: 71-year-old female postmenopausal screening Height: 4 5FT 11 1/2 IN Weight: 130 FRAX RISK QUESTIONS: Alcohol (3 or more units per day): NO Family History (Parent hip fracture): NO Glucocorticoids (More than 3mos): NO (Ex: prednisone, prednisolone, methylprednisolone, dexamethasone, and hydrocortisone). History of Fracture in Adulthood: NO Secondary Osteoporosis: 1. Type 1 Diabetes: NO 2. Hyperthyroidism: NO 3. Menopause before 45: NO 4. Malnutrition: NO 5. Chronic liver disease: NO Rheumatoid Arthritis: NO Current Tobacco Use: NO RISK FACTORS HISTORY OF: Active: YES Postmenopausal woman: AGE 56 MEDICATIONS: Additional Medications: Coregistration Additional History: BREAST CANCER 2016 RADIATION 4 WEEKS EXAM MEASUREMENTS: Bone mineral densitometry was performed using the [employer] System. Bone mineral density as measured about the Lumbar spine is: ----- L1-L4(G/cm2): 1.096 T Score Values are as follows: ----- L2: -0.7 ----- L3: -0.5 ----- L4: -0.3 ----- L1-L4: -0.7 Bone mineral density has: Decreased -1.4% since study of: 2013 Bone mineral density about the R hip (g/cm2): 0.693 Bone mineral density about the L hip (g/cm2): 0.658 T Score values are as follows: -----R Neck: -2.5 -----L Neck: -2.7 -----R Total: -2.5 -----L Total: -2.2 Bone mineral density has: Decreased -3.4% since study of: 2013 IMPRESSION: Osteoporosis (T Score less than -2.5) as noted by T Score values at the There is increased fracture risk and therapy is usually indicated based on age. Re-Screen 1-2 years. NOTE: T-SCORE=SD OF THE YOUNG ADULT MEAN.
== END | disposition home or self-care (01) ==
LOC: RADBDWWP 10:54
PROVIDERS: ATTEND Family Medicine
DX: M81.0 Age-related osteoporosis without current pathological fracture (principal); Z78.0 Asymptomatic menopausal state
CPT/HCPCS: 77080

== ENCOUNTER 2017-04-16 04:11 | Observation (INO) | payer MEDICARE ==
[2017-04-16] MEDS ORDERED: NITROGLYCERIN SL TABS 0.4 MG TAB SUBLINGUAL STA (04:30)
[2017-04-16] MEDS ORDERED: SODIUM CHLORIDE 0.9% 1,000 ML IV STA (04:30)
--- NOTE | 2017-04-16 04:38 | ED ---
Chest Pain HPI - General Chief Complaint: Chest Pain Stated Complaint: Chest Pains Time Seen by Provider: 04/16/17 04:30 Source: patient, RN notes reviewed Mode of arrival: ambulatory Limitations: no limitations - History of Present Illness Initial Comments: This is a 71-year-old female presents with complaints of the onset of burning mid epigastric and lower sternal pain. She states that been off her last 10 days she states right now is about a 3-4/10 severity gets worse at night and worse in supine position. She did take a [address] here today. She states it does not seem to get any worse with exertion. She has no known history of heart disease she does have hypertension. Additionally she recently had a right breast surgery in June of this year for a premalignant condition. MD Complaint: chest pain - Related Data Home Medications Medication Instructions Recorded Confirmed Ascorbic Acid [Vitamin C] 1,000 mg PO DAILY 09/02/15 04/16/17 Aspirin [Adult Low Dose Aspirin EC] 81 mg PO DAILY 09/02/15 04/16/17 Cholecalciferol [Vitamin D3] 5,000 unit PO DAILY 09/02/15 04/16/17 Gotu Claude [Gotu Claude Herb] 435 mg PO DAILY 09/02/15 04/16/17 Ubidecarenone [Co Q-10] 100 mg PO DAILY 09/02/15 04/16/17 Vitamin A 10,000 unit PO DAILY 09/02/15 04/16/17 Vitamin B Complex 1 cap PO DAILY 09/02/15 04/16/17 Zinc 50 mg PO DAILY 09/02/15 04/16/17 ALPRAZolam [Xanax] 1 mg PO DAILY PRN 07/14/16 04/16/17 Biotin 5,000 mcg PO DAILY 07/17/16 04/16/17 Refrigeration Houseman's Broom 1 tab PO DAILY 07/17/16 04/16/17 Potassium 90 mg PO DAILY 07/17/16 04/16/17 Vitamin E (Dl,Tocopheryl Acet) 400 unit PO DAILY 07/17/16 04/16/17 [Vitamin E] Calcium 1000mg 1,000 mg PO DAILY 08/18/16 04/16/17 Fish Oil/Dha/Epa [Fish Oil 1,200 1 cap PO DAILY 02/26/17 10/25/17 mg Fish Oil] Magnesium Oxide 500 mg PO DAILY 08/18/16 04/16/17 Selenium 50 mcg PO DAILY 08/18/16 04/16/17 ALPRAZolam [Xanax] 0.25 mg PO BID PRN 09/02/16 04/16/17 Losartan Potassium 100 mg PO ONCE 04/16/17 04/16/17 Previous Rx's Medication Instructions Recorded Carvedilol [Coreg*] 12.5 mg PO BID-W/MEALS #60 tab 09/02/16 Allergies Allergy/AdvReac Type Severity Reaction Status Date / Time clonidine Allergy Syncope Verified 04/16/17 04:22 amlodipine besylate AdvReac Swelling Verified 04/16/17 04:22 [From Norvasc] methylprednisolone AdvReac Hallucinati Verified 04/16/17 04:22 ons sulfamethoxazole AdvReac Unknown Verified 04/16/17 04:22 [From Bactrim] trimethoprim [From Bactrim] AdvReac Unknown Verified 04/16/17 04:22 Review of Systems ROS Statement: Those systems with pertinent positive or pertinent negative responses have been documented in the HPI. ROS Other: All systems not noted in ROS Statement are negative. EKG Findings - EKG Results: EKG: interpreted by ERMD, sinus rhythm (Sinus rhythm of 76 MI interval 182 QRS 76 QT/QTc is 3/436 possible left atrial enlargement and LVH is noted no acute ST wave changes however.) Past Medical History Past Medical History: Cancer, Chest Pain / Angina, Hypertension Additional Past Medical History / Comment(s): osteoporosis,SKIN CANCER, History of Any Multi-Drug Resistant Organisms: None Reported Past Surgical History: Breast Surgery Additional Past Surgical History / Comment(s): right breast lumpectomy 2016 Past Anesthesia/Blood Transfusion Reactions: No Reported Reaction Past Psychological History: Anxiety Smoking Status: Never smoker Past Alcohol Use History: None Reported Past Drug Use History: None Reported - Past Family History Mother Family Medical History: Cancer Additional Family Medical History / Comment(s): breast cancer Father Family Medical History: Cancer Additional Family Medical History / Comment(s): lip cancer General Exam - General Exam Comments Initial Comments: This is a well-developed well-nourished awake alert oriented 3 female Limitations: no limitations General appearance: alert, anxious Head exam: Present: atraumatic, normocephalic, normal inspection Eye exam: Present: normal appearance, PERRL, EOMI. Absent: scleral icterus, conjunctival injection, periorbital swelling ENT exam: Present: normal exam, mucous membranes moist Neck exam: Present: normal inspection. Absent: tenderness, meningismus, lymphadenopathy Respiratory exam: Present: normal lung sounds bilaterally. Absent: respiratory distress, wheezes, rales, rhonchi, stridor Cardiovascular Exam: Present: regular rate, normal rhythm, normal heart sounds. Absent: systolic murmur, diastolic murmur, rubs, gallop, clicks GI/Abdominal exam: Present: soft, normal bowel sounds. Absent: distended, tenderness, guarding, rebound, rigid Extremities exam: Present: normal inspection, full ROM, normal capillary refill. Absent: tenderness, pedal edema, joint swelling, calf tenderness Back exam: Present: normal inspection Neurological exam: Present: alert, oriented X3, CN II-XII intact Psychiatric exam: Present: normal affect, normal mood Skin exam: Present: warm, dry, intact, normal color. Absent: rash Course Vital Signs 04/16/17 04/16/17 04/16/17 04:13 04:38 04:52 Temperature 98 F Pulse Rate 78 77 74 Respiratory 16 18 18 Rate Blood Pressure 243/131 213/119 162/108 O2 Sat by Pulse 100 95 96 Oximetry 04/16/17 05:31 Temperature Pulse Rate 70 Respiratory 18 Rate Blood Pressure 157/92 O2 Sat by Pulse 97 Oximetry - Reevaluation(s) Reevaluation #1: 04/16/17 04:48 Patient did get some relief from the nitroglycerin. Chest Pain MDM - MDM I did review the imaging no acute findings. I did discuss the findings with the patient she is pain-free at this time she did respond to nitroglycerin. She does have a mildly elevated d-dimer she will be getting a CAT scan of the chest she will be admitted for evaluation of chest pain it was responsive to nitroglycerin. Critical Care Time Critical Care Time: Yes Critical Care Time: 31 minutes of critical care time which includes initial presentation with history physical labs x-rays reevaluation patient responsive therapy discuss with the patient and regarding the findings. Admission orders sec mentation above discussed with the admitting physician Disposition Clinical Impression: Unstable angina pectoris, Chest pain Disposition: ADMITTED IP TO THIS HOSP Condition: Stable Referrals: Aris Jarrell MD [Primary Care Provider] - 1-2 days
[2017-04-16 04:39] LABS: Basophils # (A) 0.1 k/uL (0-0.2); Basophils % (A) 1 %; CH 32.1; CHCM 32.7; Eosinophils # (A) 0.2 k/uL (0-0.7); Eosinophils % (A) 3 %; HCT 43.6 % (34.0-46.0); HDW 2.27; HGB 14.3 gm/dL (11.4-16.0); Luc # (Auto) 0.12; Luc % (Auto) 2; Lymphocytes # (A) 2.4 k/uL (1.0-4.8); Lymphocytes % (A) 45 %; MCH 32.3 pg (25.0-35.0); MCHC 32.8 g/dL (31.0-37.0); MCV 98.5 fL (80.0-100.0); Mean Platelet Volume 7.8; Monocytes # (A) 0.3 k/uL (0-1.0); Monocytes % (A) 6 %; Neutrophils # (A) 2.2 k/uL (1.3-7.7); Neutrophils % (A) 43 %; RBC 4.43 m/uL (3.80-5.40); RDW 13.9 % (11.5-15.5); WBC 5.3 k/uL (3.8-10.6); WBC (Perox) 5.24
[2017-04-16] MEDS ORDERED: NITROGLYCERIN OINT 1 INCH/GM PACKET TOPICAL STA (04:47)
[2017-04-16 04:53] LABS: ALT 35 U/L (9-52); AST 27 U/L (14-36); Alkaline Phosphatase 87 U/L (38-126); Amylase 80 U/L (30-110); Anion Gap 9 mmol/L; Blood Urea Nitrogen 17 mg/dL (7-17); Calcium 9.6 mg/dL (8.4-10.2); Carbon Dioxide 26 mmol/L (22-30); Chloride 105 mmol/L (98-107); Glucose 91 mg/dL (74-99); Magnesium 2.2 mg/dL (1.6-2.3); Non-African American GFR(MDRD) >60 (>60 ml/min/1.73 sqM); Potassium 3.7 mmol/L (3.5-5.1); Sodium 140 mmol/L (137-145); Total Bilirubin 0.6 mg/dL (0.2-1.3)
[2017-04-16 04:57] LABS: Partial Thromboplastin Time 23.6 sec (22.0-30.0); Prothrombin Time 10.3 sec (9.0-12.0)
[2017-04-16 04:58] LABS: Creatine Kinase 61 U/L (30-135)
[2017-04-16 05:11] LABS: Creatine Kinase MB 1.3 ng/mL (0.0-2.4); Troponin I <0.012 ng/mL (0.000-0.034)
[2017-04-16] MEDS ORDERED: RX INFO: IV CONTRAST WAS GIVEN 1 EACH MISC MISCELLANE PRN (05:42)
[2017-04-16] MEDS ORDERED: NITROGLYCERIN SL TABS 0.4 MG TAB SUBLINGUAL PRN (05:44)
[2017-04-16] MEDS ORDERED: HEPARIN SODIUM,PORCINE 5,000 UNIT/ML 1 ML VIAL IV ONE (05:44)
[2017-04-16] MEDS ORDERED: SODIUM CHLORIDE 0.9% 1,000 ML IV SCH (05:45)
[2017-04-16] MEDS ORDERED: HEPARIN SODIUM,PORCINE/D5W PMX 25,000 UNIT in DEXTROSE/WATER 1 500ML.BAG IV SCH (05:45)
[2017-04-16] MEDS ORDERED: ALPRAZolam 0.25 MG TAB PO PRN (05:46)
--- NOTE | 2017-04-16 05:50 | XR ---
EXAM: XR Chest, 2 Views CLINICAL HISTORY: Reason: Chest Pain TECHNIQUE: Frontal and lateral views of the chest. COMPARISON: Chest x-ray 09/01/16 FINDINGS: Lungs: Unremarkable. No consolidation. Pleural space: No pleural effusion. No pneumothorax. Heart: Unremarkable. No cardiomegaly. Mediastinum: Unremarkable. Bones/joints: Unremarkable. IMPRESSION: No acute cardiopulmonary disease.
[2017-04-16] MEDS ORDERED: NITROGLYCERIN OINT 1 INCH/GM PACKET TOPICAL SCH (06:00)
[2017-04-16] MEDS ORDERED: LOSARTAN 50 MG TAB PO ONE (06:00)
--- NOTE | 2017-04-16 06:52 | CT ---
EXAM: CT Angiography Chest With Intravenous Contrast CLINICAL HISTORY: Reason: Pain TECHNIQUE: Axial computed tomographic angiography images of the chest with intravenous contrast using pulmonary embolism protocol. CTDI is 4.6 mGy and DLP is 163.4 mGy-cm. This CT exam was performed using one or more of the following dose reduction techniques: automated exposure control, adjustment of the mA and/or kV according to patient size, and/or use of iterative reconstruction technique. MIP reconstructed images were created and reviewed. Coronal and sagittal reformatted images were created and reviewed. COMPARISON: Chest CT 09/02/15 and CXR 04/16/17 FINDINGS: Pulmonary arteries: Unremarkable. No pulmonary embolism. Aorta: Mild bilateral peripheral scarring. Atherosclerosis of the aorta. The aorta measures up to 3.6 cm in diameter at the level of the pulmonary arteries. No thoracic aortic aneurysm. Lungs: The previously seen 8 mm nodule within the lingula appears to be a cluster of smaller nodules measuring up to 1.7 mm. Left lower lobe 5.7 mm nodule, minimally increased in size. Pleural space: Unremarkable. No significant effusion. No pneumothorax. Heart: Unremarkable. No cardiomegaly. No significant pericardial effusion. No evidence of RV dysfunction. Bones/joints: Multilevel degenerative changes of the spine. Pectus deformity once again seen. No acute fracture. No dislocation. Soft tissues: Right breast asymmetry with some architectural distortion. Lymph nodes: Unremarkable. No enlarged lymph nodes. IMPRESSION: 1. No evidence of pulmonary embolism. 2. The previously seen 8 mm nodule within the lingula appears to be a cluster of smaller nodules measuring up to 1.7 mm. No follow up necessary. 3. Left lower lobe 5.7 mm nodule, minimally increased in size. 4. Right breast asymmetry with some architectural distortion.
[2017-04-16] MEDS ORDERED: CARVEDILOL 12.5 MG TAB PO SCH (07:30)
[2017-04-16] MEDS ORDERED: NON-FORMULARY DRUG (Fish Oil/Dha/Epa [Fish Oil 1,200 Mg Fish Oil] 1 CAP) PO SCH (09:00)
[2017-04-16] MEDS ORDERED: MAGNESIUM OXIDE 400 MG TAB PO SCH (09:00)
--- NOTE | 2017-04-16 10:15 | P.CRDCN ---
History of Present Illness Consult date: 04/16/17 History of present illness: This is a pleasant 71-year-old female. Follows regularly with Dr. Ott as an outpatient. Past medical history significant for hypertension. She presented to the hospital with complaints of epigastric burning at night. She states the pain comes when she lays flat and subsides when she sits forward. Incidentally blood pressure upon arrival her blood pressure was 243/ 131 the heart rate is 78. She states she is compliant with all medications. She is a patient of Dr. PAYTON. She last saw Dr. Ott in August of this year and had similar issues with her blood pressure. At that time Dr. Ott thought a lot of her blood pressure elevations were possibly due to anxiety as well as multiple medication changes. After that visit he made some changes to her daily medication regimen. Subsequently in October she saw her primary care doctor and medications were again adjusted. Her current cardiac medications include losartan 100 mg daily, carvedilol 12.5 mg by mouth twice a day and aspirin 81 mg. Cardiac enzymes negative 1, d-dimer elevated, CBC within normal limits, electrolytes within normal limits. EKG reveals sinus mechanism with no acute ST or T-wave abnormality. Chest x- ray reveals no acute cardiopulmonary process. CT angiogram negative for pulmonary embolism. Blood pressure this morning 160/77 with a heart rate is 66. Most recent Lexiscan performed 07/2016 showed no evidence of scintigraphic evidence for ischemia. Most recent echocardiogram performed 07/2016 reveals low-normal left ventricular systolic function with EF 50-55%, mild aortic sclerosis, mild concentric LVH, mild MR and mild TR. Review of Systems CONSTITUTIONAL: Denies fever. Denies chills. EYES: Denies blurred vision. Denies vision changes. Denies eye pain. EARS, NOSE, MOUTH & THROAT: Denies headache. Denies sore throat. Denies ear pain. CARDIOVASCULAR: Complains of epigastric/midsternal chest pain. Denies shortness of breath. Denies orthopnea. Denies PND. Denies palpitations. RESPIRATORY: Denies cough. GASTROINTESTINAL: Complains of upper abdominal pain. Denies diarrhea. Denies constipation. Denies nausea. Denies vomitng. MUSCULOSKELETAL: Denies myalgias. INTEGUMENTARY: Denies pruitis. Denies rash. NEUROLOGIC: Denies numbness. Denies tingling. Denies weakness. PSYCHIATRIC: Denies anxiety. Denies depression. ENDOCRINE: Denies fatigue. Denies weight change. Denies polydipsia. Denies polyurina. GENITOURINARY: Denies burning, hematuria or urgency with micturation. HEMATOLOGIC: Denies history of anemia. Denies bleeding. Past Medical History Past Medical History: Cancer, Chest Pain / Angina, Hypertension, Pneumonia Additional Past Medical History / Comment(s): Osteoporosis, skin cancer with removal, R breast pre-cancer with surgery, insomnia, past sinus headaches, past bilateral carpal tunnel syndrome, past L radial hairline fracture, bronchitis. History of Any Multi-Drug Resistant Organisms: None Reported Past Surgical History: Breast Surgery Additional Past Surgical History / Comment(s): right breast lumpectomy 2016, skin cancer removals Past Anesthesia/Blood Transfusion Reactions: No Reported Reaction Smoking Status: Never smoker - Past Family History Mother Family Medical History: Cancer Additional Family Medical History / Comment(s): Breast cancer that metastasized to the bone. Mother of this at the age of 47yrs. Father Family Medical History: Cancer, Coronary Artery Disease (CAD) Additional Family Medical History / Comment(s): Lip cancer. Father lived to be 93 yrs old. Medications and Allergies Home Medications Medication Instructions Recorded Confirmed Type Ascorbic Acid [Vitamin C] 1,000 mg PO DAILY 09/02/15 04/16/17 History Aspirin [Adult Low Dose Aspirin EC] 81 mg PO DAILY 09/02/15 04/16/17 History Cholecalciferol [Vitamin D3] 5,000 unit PO DAILY 09/02/15 04/16/17 History Ubidecarenone [Co Q-10] 100 mg PO DAILY 09/02/15 04/16/17 History Vitamin A 10,000 unit PO DAILY 09/02/15 04/16/17 History Vitamin B Complex 1 cap PO DAILY 09/02/15 04/16/17 History Zinc 50 mg PO DAILY 09/02/15 04/16/17 History Potassium 90 mg PO DAILY 07/17/16 04/16/17 History Vitamin E (Dl,Tocopheryl Acet) 400 unit PO DAILY 07/17/16 04/16/17 History [Vitamin E] Calcium 1000mg 1,000 mg PO DAILY 08/18/16 04/16/17 History Fish Oil/Dha/Epa [Fish Oil 1,200 1 cap PO DAILY 08/18/16 04/16/17 History mg Fish Oil] Selenium 50 mcg PO DAILY 08/18/16 04/16/17 History Carvedilol [Coreg*] 12.5 mg PO BID-W/MEALS #60 tab 09/02/16 04/16/17 Rx Losartan Potassium 100 mg PO DAILY 04/16/17 04/16/17 History Magnesium Gluconate [Magonate] 500 mg PO DAILY 04/16/17 04/16/17 History Allergies Allergy/AdvReac Type Severity Reaction Status Date / Time clonidine Allergy Syncope Verified 04/16/17 06:57 amlodipine besylate AdvReac Swelling Verified 04/16/17 06:57 [From Norvasc] methylprednisolone AdvReac Hallucinati Verified 04/16/17 06:57 ons sulfamethoxazole AdvReac Unknown Verified 04/16/17 06:57 [From Bactrim] trimethoprim [From Bactrim] AdvReac Unknown Verified 04/16/17 06:57 Physical Exam Vitals: Vital Signs Temp Pulse Pulse Resp BP BP Pulse Ox 04/16/17 08:00 74 18 04/16/17 07:30 98.0 F 74 18 159/102 97 04/16/17 06:05 98.6 F 66 18 160/77 98 04/16/17 05:31 70 18 157/92 97 04/16/17 04:52 74 18 162/108 96 04/16/17 04:38 77 18 213/119 95 04/16/17 04:13 98 F 78 16 243/131 100 Intake and Output 04/15/17 04/16/17 04/16/17 22:59 06:59 14:59 Other: Voiding Method Toilet Weight 58.967 kg 58.8 kg Patient Weight 04/17/17 06:59 Weight 58.8 kg GENERAL: This is a 71-year-old female in no apparent distress at the time of my examination. HEENT: Head is atraumatic, normocephalic. Pupils are equal, round. Sclerae anicteric. Conjunctivae are clear. Mucous membranes of the mouth are moist. Neck is supple. There is no jugular venous distention. No carotid bruit is heard. LUNGS: Clear to auscultation no wheezes, rales or rhonchi. No chest wall tenderness is noted on palpation or with deep breathing. HEART: Regular rate and rhythm without murmurs, rubs or gallops. S1 and S2 heard. ABDOMEN: Soft, nontender. Bowel sounds are heard. No organomegaly noted. EXTREMITIES: 2+ peripheral pulses with no evidence of peripheral edema and no calf tenderness noted. NEUROLOGIC: Patient is awake, alert and oriented x3. Results 04/16/17 04:20 04/16/17 04:20 Cardiac Enzymes 04/16/17 04/16/17 Range/Units 04:20 04:20 AST 27 (14-36) U/L CK-MB (CK-2) 1.3 (0.0-2.4) ng/mL Troponin I <0.012 (0.000-0.034) ng/mL Coagulation 04/16/17 Range/Units 04:20 PT 10.3 (9.0-12.0) sec APTT 23.6 (22.0-30.0) sec CBC 04/16/17 Range/Units 04:20 WBC 5.3 (3.8-10.6) k/uL RBC 4.43 (3.80-5.40) m/uL Hgb 14.3 (11.4-16.0) gm/dL Hct 43.6 (34.0-46.0) % Plt Count 237 (150-450) k/uL Comprehensive Metabolic Panel 04/16/17 Range/Units 04:20 Sodium 140 (137-145) mmol/L Potassium 3.7 (3.5-5.1) mmol/L Chloride 105 (98-107) mmol/L Carbon Dioxide 26 (22-30) mmol/L BUN 17 (7-17) mg/dL Creatinine 0.80 (0.52-1.04) mg/dL Glucose 91 (74-99) mg/dL Calcium 9.6 (8.4-10.2) mg/dL AST 27 (14-36) U/L ALT 35 (9-52) U/L Alkaline Phosphatase 87 (38-126) U/L Total Protein 7.0 (6.3-8.2) g/dL Albumin 4.1 (3.5-5.0) g/dL Current Medications Generic Name Dose Route Start Last Admin Trade Name Freq PRN Reason Stop Dose Admin Alprazolam 0.25 mg 04/16/17 05:46 Xanax PO BID PRN Anxiety Ascorbic Acid 1,000 mg 04/17/17 09:00 Vitamin C PO DAILY [facility] Aspirin 325 mg 04/17/17 09:00 Aspirin PO DAILY [facility] Calcium Carbonate/Glycine 1,000 mg 04/17/17 09:00 Tums PO DAILY [facility] Carvedilol 25 mg 04/16/17 09:30 Coreg PO BID-W/MEALS [facility] Cholecalciferol 5,000 unit 04/17/17 09:00 Vitamin D3 PO DAILY [facility] Hydrochlorothiazide 25 mg 04/16/17 09:30 Hydrodiuril PO DAILY [facility] Heparin Sodium/Dextrose 25,000 500 mls @ 14.15 mls/hr 04/16/17 05:45 06:01 unit/ IV Solution IV 11.95 units/kg/hr .Q24H NEFTALI 14.1 mls/hr Protocol Administration 12 UNITS/KG/HR Sodium Chloride 1,000 mls @ 20 mls/hr 04/16/17 05:45 04/16/17 06:05 Saline 0.9% IV 20 mls/hr .Q24H NEFTALI Administration Magnesium Oxide 400 mg 04/16/17 09:00 Mag-Ox PO DAILY [facility] Magnesium Oxide 400 mg 04/17/17 09:00 Mag-Ox PO DAILY [facility] Miscellaneous Information 1 each 04/16/17 05:42 Rx Info: Iv Contrast Was Given MISCELLANE 04/18/17 05:42 DAILY PRN Per Protocol Nitroglycerin 0.5 inch 04/16/17 06:00 Nitro-Bid Oint TOPICAL Q6HR [facility] Nitroglycerin 0.4 mg 04/16/17 05:44 Nitrostat SUBLINGUAL Q5M PRN Chest Pain Potassium Chloride 90 meq 04/16/17 09:00 Potassium Chloride Oral Liquid PO DAILY [facility] Intake and Output 04/15/17 04/16/17 04/16/17 22:59 06:59 14:59 Other: Voiding Method Toilet Weight 58.967 kg 58.8 kg Patient Weight 04/17/17 06:59 Weight 58.8 kg 04/16/17 04:20 04/16/17 04:20 Assessment and Plan Assessment: ASSESSMENT 1. Hypertensive urgency 2. Chest pain, atypical secondary to hypertensive urgency 3. Anxiety PLAN From a cardiac perspective we will make the following adjustments to her daily blood pressure regimen: Add hydrochlorothiazide 25 mg daily, increase carvedilol to 25 mg BID and continue with losartan at 100 mg daily as previously ordered. Unfortunately, Mrs. Pyle has been trialed on multiple different blood pressure agents and has suffered many side effects and intolerances. She cannot tolerate clonidine, amlodipine or hydralazine. Continue to obtain serial cardiac enzymes and EKG's to rule out an acute coronary event. If the enzymes are negative heparin can be discontinued. We will not repeat diagnostic testing at this time. Nurse Practitioner note has been reviewed, I agree with a documented findings and plan of care. Patient was seen and examined.
[2017-04-16 10:36] LABS: Creatine Kinase 48 U/L (30-135)
[2017-04-16] MEDS: LOSARTAN 50 MG TAB PO SCH (10:38)
[2017-04-16] MEDS: HYDROCHLOROTHIAZIDE 25 MG TAB PO SCH (10:38)
[2017-04-16] MEDS: CARVEDILOL 12.5 MG TAB PO SCH ×2 (10:38→17:29)
[2017-04-16 10:50] LABS: Creatine Kinase MB 0.9 ng/mL (0.0-2.4); Troponin I <0.012 ng/mL (0.000-0.034)
[2017-04-16] MEDS: POTASSIUM CHLORIDE ORAL LIQUID 40 MEQ/30 ML CUP PO SCH (11:17)
[2017-04-16] MEDS: PARoxetine 10 MG TAB PO SCH (16:12)
--- NOTE | 2017-04-16 16:38 | HP ---
HISTORY AND PHYSICAL DATE OF ADMISSION: 04/16/17 PRESENTING COMPLAINT: Chest pain. HISTORY OF PRESENTING COMPLAINT: This is a 71-year-old patient off Dr. Jarrell. Patient's chronic stable medical conditions include the patient presented with multiple issues. The patient was here in August of this year and found to have uncontrolled blood pressure. The patient has side effects is unable to take some medications. The patient has chronic anxiety and worries about will, not taking some of the blood pressure medications. The patient is worried about a lot of people in the family and other people. worries all the time. Does not sleep well, sleeps barely even up to 6 hours a day. Feels restless all the time. The patient has noted some intermittent central chest pain. No radiation. No shortness of breath. No perspiration. No dizziness, lightheadedness. Patient able to tolerate a diet. REVIEW OF SYSTEMS: CONSTITUTIONAL: Tired. HEENT: None. RESPIRATORY: None. CARDIOVASCULAR: As above. GASTROINTESTINAL: None. GENITOURINARY: As above. MUSCULOSKELETAL: None. DERMATOLOGICAL, HEMATOLOGIC, LYMPHATIC: None. PSYCHIATRY: Very anxious. NEUROLOGICAL: Does not sleep well. PAST MEDICAL HISTORY: Hypertension, osteoporosis, skin cancer, anxiety. PAST SURGICAL HISTORY: Right breast lumpectomy. PSYCH HISTORY: Anxiety. SOCIAL HISTORY: No smoking. No alcohol. . FAMILY HISTORY: Breast cancer. HOME MEDICATIONS: 1. Magnesium 5 mg p.o. daily. 2. Losartan 100 mg p.o. daily. 3. Zinc 50 mg p.o. daily. 4. Vitamin E 400 units p.o. daily. 5. Vitamin B complex 1 capsule p.o. daily. 6. Vitamin A 12157 units p.o. daily. 7. CO Q 10 100 mg p.o. daily. 8. Selenium 50 mcg p.o. daily. 9. Potassium 90 mg p.o. daily. 10.Fish oil 1 capsule p.o. daily. 11.Vitamin D3 5000 units p.o. daily. 12.Coreg 12.5 p.o. b.i.d. 13.Calcium 1000 mg p.o. daily. 14.Aspirin 81 mg p.o. daily. 15.Vitamin C 1000 mg p.o. daily. ALLERGIES: CLONIDINE, AMLODIPINE METHYLPREDNISONE, BACTRIM. PHYSICAL EXAMINATION: Vital signs on presentation temperature 98, pulse 70, respiration 16, blood pressure 241/35, pulse ox 100% on room air. Repeat blood pressure now is down to 162/82. GENERAL APPEARANCE: Average build lying in bed, very anxious appearing, although otherwise comfortable. EYES: Pupils equal. Conjunctivae normal. HEENT: Oral cavity normal. NECK: JVD not raised. Mass not palpable. RESPIRATORY: Effort normal. Lungs are clear. CARDIOVASCULAR: First and second sounds normal. No edema. ABDOMEN: Soft, nontender. Liver and spleen not palpable. LYMPHATIC: No lymph node palpable. PSYCHIATRY: Alert and oriented x3. Very anxious appearing. NEUROLOGICAL: Pupils equal. Cranial nerves grossly intact. Power and sensation grossly intact. MUSCULOSKELETAL: Evidence of osteoarthritis especially in the hands. INVESTIGATIONS: White count 5.3, hemoglobin 14.3, potassium 3.9. BUN and creatinine normal. Troponin x2 is negative. Free T4 1.41. TSH 0.498. EKG: I do not have a tracing at hand. Chest CTA: Previously seen a nodules in the lingula appears to be clustered small nodules, right lower lobe 5.7 mm nodule. Chest x-ray unremarkable. ASSESSMENT: 1. Accelerated hypertension in a patient who has trouble taking some other medications. This appears to be significant amount of anxiety component that is manifesting as hypertension. Of course. Patient does have underlying up blood pressure. 2. Anxiety disorder, uncontrolled. 3. Chronic insomnia. PLAN: Serial cardiac enzymes in place. Cardiology was consulted who did adjust some of the blood pressure medications. I had a lengthy talk with the patient and the at the bedside. I did talk about ways to keep a keep her from worrying so much. Suggested use [employer]. For sleeping, we will start the patient on melatonin. We will add Paxil for anxiety. See how blood pressure medications act. In the meantime cardiac enzymes are in place. MMODL / IJN: [id number] /
[2017-04-16 17:50] LABS: Creatine Kinase 45 U/L (30-135)
[2017-04-16 18:00] LABS: Creatine Kinase MB 0.7 ng/mL (0.0-2.4); Troponin I <0.012 ng/mL (0.000-0.034)
[2017-04-16 19:34] VITALS: RESP 16
[2017-04-16] MEDS ORDERED: MELATONIN 5 MG TABLET PO SCH (21:00)
[2017-04-16 23:54] LABS: Cholesterol 192 mg/dL (<200); HDL Cholesterol 54 mg/dL (40-60)
[2017-04-17] MEDS ORDERED: CALCIUM CARBONATE 500 MG CHEWABLE PO SCH (09:00)
[2017-04-17] MEDS ORDERED: CHOLECALCIFEROL 1,000 UNIT TAB PO SCH (09:00)
[2017-04-17] MEDS ORDERED: MAGNESIUM OXIDE 400 MG TAB PO SCH ×2 (09:00)
[2017-04-17] MEDS ORDERED: ASPIRIN 325 MG TAB PO SCH (09:00)
[2017-04-17] MEDS ORDERED: ASCORBIC ACID 500 MG TAB PO SCH (09:00)
[2017-04-17] MEDS: LOSARTAN 50 MG TAB PO SCH (09:48)
[2017-04-17] MEDS: HYDROCHLOROTHIAZIDE 25 MG TAB PO SCH (09:49)
[2017-04-17] MEDS: CARVEDILOL 12.5 MG TAB PO SCH (09:49)
[2017-04-17] MEDS: POTASSIUM CHLORIDE ORAL LIQUID 40 MEQ/30 ML CUP PO SCH (09:50)
[2017-04-17] MEDS: PARoxetine 10 MG TAB PO SCH (09:51)
--- NOTE | 2017-04-17 10:22 | P.PN ---
Subjective Progress Note Date: 04/17/17 This is a pleasant 71-year-old female. Follows regularly with Dr. Ott as an outpatient. Past medical history significant for hypertension. She presented to the hospital with complaints of epigastric burning at night. She states the pain comes when she lays flat and subsides when she sits forward. Incidentally blood pressure upon arrival her blood pressure was 243/ 131 the heart rate is 78. She states she is compliant with all medications. She is a patient of Dr. PAYTON. She last saw Dr. Ott in August of this year and had similar issues with her blood pressure. At that time Dr. Ott thought a lot of her blood pressure elevations were possibly due to anxiety as well as multiple medication changes. After that visit he made some changes to her daily medication regimen. Subsequently in October she saw her primary care doctor and medications were again adjusted. Her current cardiac medications include losartan 100 mg daily, carvedilol 12.5 mg by mouth twice a day and aspirin 81 mg. Cardiac enzymes negative 1, d-dimer elevated, CBC within normal limits, electrolytes within normal limits. EKG reveals sinus mechanism with no acute ST or T-wave abnormality. Chest x- ray reveals no acute cardiopulmonary process. CT angiogram negative for pulmonary embolism. Blood pressure this morning 160/77 with a heart rate is 66. Most recent Lexiscan performed 07/2016 showed no evidence of scintigraphic evidence for ischemia. Most recent echocardiogram performed 07/2016 reveals low-normal left ventricular systolic function with EF 50-55%, mild aortic sclerosis, mild concentric LVH, mild MR and mild TR. 04/17/2017 Mrs. Pyle is seen today in follow-up. She is sitting up in bed eating breakfast in no acute distress. She denies any further episodes of chest/ epigastric pain. Blood pressure has fluctuated between 130-160 systolic. She denies any specific side effects such as headache, dizziness, cramping or palpitations. Lengthy discussion was had with her about the importance of following with Dr. Ott for blood pressure control. Medicine has addressed increased anxiety. Objective - Vital Signs Vital signs: Vital Signs Temp 97.7 F 04/17/17 07:42 Pulse 66 04/17/17 08:00 Resp 16 04/17/17 08:00 BP 168/86 04/17/17 07:42 Pulse Ox 99 04/17/17 07:42 Intake & Output 04/16/17 04/17/17 04/17/17 18:59 06:59 18:59 Intake Total 500 236 Balance 500 236 Weight 58.8 kg Intake: Oral 500 236 Other: Voiding Method Toilet Toilet Toilet # Voids 2 - Exam GENERAL: Well-appearing, well-nourished and in no acute distress. NECK: Supple without JVD or thyromegaly. LUNGS: Breath sounds clear to auscultation bilaterally. Respiration equal and unlabored. No wheezes, rales or rhonchi. HEART: Regular rate and rhythm without murmurs, rubs or gallops. S1 and S2 heard. EXTREMITIES: Normal range of motion, no edema. No clubbing or cyanosis. Peripheral pulses intact and strong. - Labs CBC & Chem 7: 04/16/17 04:20 04/16/17 04:20 Labs: Abnormal Lab Results - Last 24 Hours (Table) 04/16/17 04/16/17 Range/Units 04:20 12:18 APTT 48.8 H (22.0-30.0) sec LDL Cholesterol, Calc 115 H (0-99) mg/dL Assessment and Plan Assessment: ASSESSMENT 1. Hypertensive urgency 2. Chest pain, atypical secondary to hypertensive urgency 3. Anxiety PLAN From a cardiac perspective she is stable to go home on current medication regimen with tools for decreasing anxiety as well. She should follow up with Dr. Ott in 2 weeks to evaluate medication changes and discuss outpatient stress testing. Nurse Practitioner note has been reviewed, I agree with a documented findings and plan of care. Patient was seen and examined.
[2017-04-17 11:47] VITALS: BP 149/90; PULSE 76; TEMP 97.9
--- NOTE | 2017-04-17 22:00 | DS ---
DISCHARGE SUMMARY DATE OF ADMISSION: April 16, 2017. DATE OF DISCHARGE: April 17, 2017. FINAL DIAGNOSES: 1. Essential hypertension with urgency. 2. Anxiety disorder, uncontrolled. 3. Increased social stressors. 4. Chronic insomnia. 5. Primary osteoarthritis especially of the hands. HOSPITAL COURSE: This patient having a lot of stressors, present uncontrolled blood pressure. Medications were adjusted. Seen by Dr. Mendez from Cardiology who is going to consider doing a stress test as an outpatient. I did talk to patient in different ways to keep herself calm, also Paxil is being added. PHYSICAL EXAMINATION: Psych: Anxious-appearing. Lungs are clear. Cardiovascular first and second sounds normal. Troponins are negative. CONSULTATION: Dr. Mendez. DISCHARGE MEDICATIONS: 1. Vitamin C 1000 mg p.o. daily. 2. Aspirin 81 mg p.o. daily. 3. Vitamin D3 5000 units p.o. daily. 4. Losartan 100 mg p.o. daily. 5. Magnesium 500 mg p.o. daily. 6. Coreg 25 mg p.o. b.i.d. 7. Chlorthalidone 25 mg p.o. daily. 8. Melatonin 5 mg p.o. q.h.s. 9. Nitrostat 0.4 sublingual q.5h p.r.n. 10.Paxil 10 mg p.o. daily. 11.The patient does take the following supplements including vitamin C, CO Q 10, vitamin A, vitamin B, zinc, vitamin E, calcium, fish oil, selenium, magnesium. Discussion and discharge planning more than 35 minutes. Follow up with Dr. Jarrell in 3-[address] Dia Ott on 04/30/2017. MMODL / IJN: [id number] /
== END 2017-04-17 13:13 | disposition home or self-care (01) ==
LOC: EC 04:11 → 3OBS 05:44
PROVIDERS: ADMIT Hospitalist; ATTEND Hospitalist
DX: R07.89 Other chest pain (principal); I10 Essential (primary) hypertension; M81.0 Age-related osteoporosis without current pathological fracture; F41.9 Anxiety disorder, unspecified; I16.0 Hypertensive urgency; R45.1 Restlessness and agitation; F51.04 Psychophysiologic insomnia; M19.042 Primary osteoarthritis, left hand; M19.041 Primary osteoarthritis, right hand; Z79.899 Other long term (current) drug therapy; Z79.82 Long term (current) use of aspirin; Z82.49 Family history of ischemic heart disease and other diseases of the circulatory system; Z88.2 Allergy status to sulfonamides; Z88.8 Allergy status to other drugs, medicaments and biological substances; Z85.828 Personal history of other malignant neoplasm of skin
CPT/HCPCS: 96376; 96365; 99291; 36415; 93005; 85379; 84439; 83880; 80061; 80053; 84443; 82150; 82550; 82553; 83690; 83735; 84484; 85025; 85610; 85730; 71020; 71275; G0378 ×2; J1644 ×2; Q9967

== ENCOUNTER → 2018-02-02 | Outpatient (CLI) | payer MEDICARE ==
--- NOTE | 2018-02-03 09:00 | MM ---
Reason for exam: additional evaluation requested from prior study. Last mammogram was performed 1 year ago. History: Patient is postmenopausal, has history of breast cancer at age 70, and has history of other cancer at age 58. Family history of premenopausal breast cancer in mother at age 45 and breast cancer in maternal aunt. Malignant MG pre op needle loc RT of the right breast, July 18, 2016. Malignant MG stereo VAD BX RT of the right breast, June 28, 2016. Physical Findings: Nurse did not find any significant physical abnormalities on exam. MG 3D Diag Mammo W/Cad GELY Bilateral CC and MLO view(s) were taken. Prior study comparison: January 24, 2017, bilateral MG 3d diag mammo w/cad GELY. July 13, 2016, mammogram. May 23, 2016, right breast MG work up mamm w CAD RT. The breast tissue is heterogeneously dense. This may lower the sensitivity of mammography. There are benign appearing bilateral calcifications. No suspicious abnormality. Left axillary calcifications and nodes are similar to multiple priors. Right post operative changes. These results were verbally communicated with the patient and result sheet given to the patient on 02/02/18. ASSESSMENT: Benign, BI-RAD 2 RECOMMENDATION: Follow-up diagnostic mammogram of both breasts in 1 year.
== END | disposition home or self-care (01) ==
LOC: RADMAMWWP 12:51
PROVIDERS: ATTEND Radiology Radiation Oncology
DX: Z08 Encounter for follow-up examination after completed treatment for malignant neoplasm (principal); Z85.3 Personal history of malignant neoplasm of breast
CPT/HCPCS: 77066; G0279; 77062

== ENCOUNTER → 2019-03-08 | Outpatient (CLI) | payer MEDICARE ==
--- NOTE | 2019-03-08 14:03 | MM ---
Reason for exam: additional evaluation requested from prior study. Last mammogram was performed 1 year and 1 month ago. History: Patient is postmenopausal, has history of breast cancer at age 70, and has history of other cancer at age 58. Family history of premenopausal breast cancer in mother at age 45 and breast cancer in maternal aunt. Malignant MG pre op needle loc RT of the right breast, July 18, 2016. Malignant MG stereo VAD BX RT of the right breast, June 28, 2016. Physical Findings: Nurse did not find any significant physical abnormalities on exam. MG 3D Diag Mammo W/Cad GELY Bilateral CC and MLO view(s) were taken. Prior study comparison: February 02, 2018, bilateral MG 3d diag mammo w/cad GELY. January 24, 2017, bilateral MG 3d diag mammo w/cad GELY. The breast tissue is heterogeneously dense. This may lower the sensitivity of mammography. There is chronic nodularity in the left breast. Progressive retraction and distortion of the right breast with post surgical and post therapy change. No suspicious calcifications. Additional short interval follow up recommended. These results were verbally communicated with the patient and result sheet given to the patient on 03/08/19. ASSESSMENT: Probably benign, BI-RAD 3 RECOMMENDATION: Follow-up diagnostic mammogram of the right breast in 6 months.
== END | disposition home or self-care (01) ==
LOC: RADMAMWWP 12:45
PROVIDERS: ATTEND Family Medicine
DX: Z08 Encounter for follow-up examination after completed treatment for malignant neoplasm (principal); Z85.3 Personal history of malignant neoplasm of breast
CPT/HCPCS: 77066; G0279; 77062

== ENCOUNTER → 2020-05-04 | Outpatient (CLI) | payer MEDICARE ==
--- NOTE | 2020-05-04 14:59 | MM ---
Reason for exam: additional evaluation requested from prior study. Last mammogram was performed 1 year and 2 months ago. History: Patient is postmenopausal, has history of breast cancer at age 70, and has history of other cancer at age 58. Family history of premenopausal breast cancer in mother at age 45 and breast cancer in maternal aunt. Malignant MG pre op needle loc RT of the right breast, July 18, 2016. Malignant MG stereo VAD BX RT of the right breast, June 28, 2016. Physical Findings: Nurse did not find any significant physical abnormalities on exam. MG 3D Diag Mammo W/Cad GELY Bilateral CC and MLO view(s) were taken. Prior study comparison: March 08, 2019, bilateral MG 3d diag mammo w/cad GELY. February 02, 2018, bilateral MG 3d diag mammo w/cad GELY. There are scattered fibroglandular densities. Finding #1: Architectural distortion st biopsy site has progressed. Finding #2: There are indetereminate coarse, dystrophic calcifications in the right breast at biopsy site. Asymmetric breast tissue. These results were verbally communicated with the patient and result sheet given to the patient on 05/04/20. ASSESSMENT: Probably benign, BI-RAD 3 RECOMMENDATION: Follow-up diagnostic mammogram of the right breast in 6 months.
== END | disposition home or self-care (01) ==
LOC: RADMAMWWP 14:08
PROVIDERS: ATTEND Family Medicine
DX: Z08 Encounter for follow-up examination after completed treatment for malignant neoplasm (principal); Z85.3 Personal history of malignant neoplasm of breast
CPT/HCPCS: 77066; G0279; 77062

== ENCOUNTER → 2020-11-01 | Outpatient (CLI) | payer MEDICARE ==
--- NOTE | 2020-11-01 11:53 | MM ---
Reason for exam: follow-up at short interval from prior study. Last mammogram was performed 6 months ago. History: Patient is postmenopausal, has history of breast cancer at age 70, and has history of other cancer at age 58. Family history of premenopausal breast cancer in mother at age 45 and breast cancer in maternal aunt. Malignant MG pre op needle loc RT of the right breast, July 18, 2016. Malignant MG stereo VAD BX RT of the right breast, June 28, 2016. Physical Findings: Nurse did not find any significant physical abnormalities on exam. MG 3D Diag Mammo W/Cad RT CC and MLO view(s) were taken of the right breast. Prior study comparison: May 04, 2020, bilateral MG 3d diag mammo w/cad GELY. March 08, 2019, bilateral MG 3d diag mammo w/cad GELY. The breast tissue is heterogeneously dense. This may lower the sensitivity of mammography. Post operative distortion. Stable dystrophic calcifications. These results were verbally communicated with the patient and result sheet given to the patient on 11/01/20. ASSESSMENT: Benign, BI-RAD 2 RECOMMENDATION: Follow-up diagnostic mammogram of both breasts in 6 months. Back on schedule.
== END | disposition home or self-care (01) ==
LOC: RADMAMWWP 10:55
PROVIDERS: ATTEND Surgery
DX: R92.2 Inconclusive mammogram (principal); R92.1 Mammographic calcification found on diagnostic imaging of breast; Z80.3 Family history of malignant neoplasm of breast; Z78.0 Asymptomatic menopausal state; Z85.3 Personal history of malignant neoplasm of breast
CPT/HCPCS: 77065; G0279; 77061

== ENCOUNTER → 2021-05-10 | Outpatient (CLI) | payer MEDICARE ==
--- NOTE | 2021-05-10 14:16 | MM ---
Reason for exam: additional evaluation requested from prior study. Last mammogram was performed 6 months ago. History: Patient is postmenopausal, has history of breast cancer at age 70, and has history of other cancer at age 58. Family history of premenopausal breast cancer in mother at age 45 and breast cancer in maternal aunt. Malignant MG pre op needle loc RT of the right breast, July 18, 2016. Malignant MG stereo VAD BX RT of the right breast, June 28, 2016. Physical Findings: Nurse did not find any significant physical abnormalities on exam. MG 3D Diag Mammo W/Cad GELY Bilateral CC and MLO view(s) were taken. Prior study comparison: November 01, 2020, right breast MG 3d diag mammo w/cad RT. May 04, 2020, bilateral MG 3d diag mammo w/cad GELY. The breast tissue is heterogeneously dense. This may lower the sensitivity of mammography. There is no discrete abnormality. Stable post lumpectomy changes right breast with dystrophic calcifications. No significant new findings when compared with previous films. These results were verbally communicated with the patient and result sheet given to the patient on 05/10/21. ASSESSMENT: Benign, BI-RAD 2 RECOMMENDATION: Follow-up diagnostic mammogram of both breasts in 1 year.
== END | disposition home or self-care (01) ==
LOC: RADMAMWWP 11:03
PROVIDERS: ATTEND Family Medicine
DX: Z85.3 Personal history of malignant neoplasm of breast (principal)
CPT/HCPCS: 77066; G0279; 77062

== ENCOUNTER → 2022-05-22 | Outpatient (CLI) | payer MEDICARE ==
--- NOTE | 2022-05-23 18:48 | MM ---
Reason for Exam: Screening (asymptomatic). Last screening mammogram was performed 12 month(s) ago. Patient History: Menarche at age 13. First Full-Term at age 22. Postmenopausal. Patient has history of breast feeding. Breast cancer, right, age 70. Previous DCIS pathology result. 07/18/2016, Malignant Core Biopsy on the right side. 06/28/2016, Malignant Core Biopsy on the right side. Maternal aunt had breast cancer under age 50. Mother had breast cancer, age 45. Prior Study Comparison: 05/04/2020 Bilateral Diagnostic Mammogram, [facility]. 11/01/2020 Right Diagnostic Mammogram, [facility]. 05/10/2021 Bilateral Diagnostic Mammogram, [facility]. Tissue Density: There are scattered fibroglandular densities. Findings: Analyzed By CAD. Postsurgical and posttreatment changes right breast with extensive distortion of the breast contour. Post surgical scar with fat necrosis calcifications. Benign vascular calcifications on the left. Posterior upper-outer quadrant intramammary lymph node on the left also unchanged. No significant change from prior exams. Overall Assessment: Benign, BI-RAD 2 Management: Screening Mammogram of both breasts in 1 year. 1. Patient should continue monthly self breast exams. 2. A clinical breast exam by your physician is recommended on an annual basis. 3. This exam should not preclude additional follow-up of suspicious palpable abnormalities. Electronically signed and approved by: Blanca Cevallos M.D. Radiologist
== END | disposition home or self-care (01) ==
LOC: RADMAMWWP 14:26
PROVIDERS: ATTEND Family Medicine
DX: Z12.31 Encounter for screening mammogram for malignant neoplasm of breast (principal); Z80.3 Family history of malignant neoplasm of breast; Z78.0 Asymptomatic menopausal state; Z98.890 Other specified postprocedural states; Z85.3 Personal history of malignant neoplasm of breast
CPT/HCPCS: 77063; 77067

== ENCOUNTER 2023-12-07 20:30 | Inpatient (IN) | payer MEDICARE ==
--- NOTE | 2023-12-07 20:59 | ED ---
Fall HPI - General Chief Complaint: Fall Stated Complaint: Fall Time Seen by Provider: 12/07/23 20:47 Source: EMS Mode of arrival: EMS - History of Present Illness Initial Comments: 8-year-old female presented to the ED with a chief complaint of right hip injury. Patient states that she was out gardening. States that there was a board by her feet which she did not notice and she tripped on this causing her to fall onto her right side. States that she landed directly onto her right hip and has been noting pain of the right hip since then. Patient is on baby aspirin. However, she denies head injury. Denies any other injury at this time. No other complaints. - Related Data Home Medications Medication Instructions Recorded Confirmed Ascorbic Acid [Vitamin C] 1,000 mg PO DAILY 09/02/15 04/16/17 Aspirin [Adult Low Dose Aspirin EC] 81 mg PO DAILY 09/02/15 04/16/17 Cholecalciferol [Vitamin D3 (25 5,000 unit PO DAILY 09/02/15 04/16/17 Mcg = 1000 Iu)] Ubidecarenone [Co Q-10] 100 mg PO DAILY 09/02/15 04/16/17 Vitamin A (10,000 If=6808 Mcg) 10,000 unit PO DAILY 09/02/15 04/16/17 Vitamin B Complex 1 cap PO DAILY 09/02/15 04/16/17 Zinc 50 mg PO DAILY 09/02/15 04/16/17 Potassium 90 mg PO DAILY 07/17/16 04/16/17 Vitamin E (Dl,Tocopheryl Acet) 400 unit PO DAILY 07/17/16 04/16/17 [Vitamin E] Calcium 1000mg 1,000 mg PO DAILY 08/18/16 04/16/17 Fish Oil/Dha/Epa [Fish Oil 1,200 1 cap PO DAILY 08/18/16 04/16/17 mg Fish Oil] Selenium 50 mcg PO DAILY 08/18/16 04/16/17 Losartan Potassium 100 mg PO DAILY 04/16/17 04/16/17 Magnesium Gluconate [Magonate] 500 mg PO DAILY 04/16/17 04/16/17 Previous Rx's Medication Instructions Recorded Chlorthalidone 25 mg PO DAILY #30 tab 04/17/17 Melatonin 5 mg PO HS tablet 04/17/17 Nitroglycerin Sl Tabs [Nitrostat] 0.4 mg SUBLINGUAL Q5M PRN #25 tab 04/17/17 PARoxetine [Paxil] 10 mg PO DAILY #30 tab 04/17/17 carvediloL [Coreg] 25 mg PO BID #60 tablet 04/17/17 Allergies Allergy/AdvReac Type Severity Reaction Status Date / Time clonidine Allergy Syncope Verified 12/07/23 20:39 amlodipine besylate AdvReac Swelling Verified 12/07/23 20:39 [From Norvasc] methylprednisolone AdvReac Hallucinati Verified 12/07/23 20:39 ons sulfamethoxazole AdvReac Unknown Verified 12/07/23 20:39 [From Bactrim] trimethoprim [From Bactrim] AdvReac Unknown Verified 12/07/23 20:39 Review of Systems ROS Statement: Those systems with pertinent positive or pertinent negative responses have been documented in the HPI. ROS Other: All systems not noted in ROS Statement are negative. Past Medical History Past Medical History: Cancer, Chest Pain / Angina, Hypertension, Pneumonia Additional Past Medical History / Comment(s): Osteoporosis, skin cancer with removal, R breast pre-cancer with surgery, insomnia, past sinus headaches, past bilateral carpal tunnel syndrome, past L radial hairline fracture, bronchitis. History of Any Multi-Drug Resistant Organisms: None Reported Past Surgical History: Breast Surgery Additional Past Surgical History / Comment(s): right breast lumpectomy 07/19/2016, skin cancer removals Past Anesthesia/Blood Transfusion Reactions: No Reported Reaction Past Psychological History: Anxiety Past Alcohol Use History: Occasional Past Drug Use History: None Reported - Past Family History Mother Family Medical History: Cancer Additional Family Medical History / Comment(s): Breast cancer that metastasized to the bone. Mother of this at the age of 47yrs. Father Family Medical History: Cancer, Coronary Artery Disease (CAD) Additional Family Medical History / Comment(s): Lip cancer. Father lived to be 93 yrs old. General Exam General appearance: alert, in no apparent distress Eye exam: Present: normal appearance Neck exam: Present: normal inspection Respiratory exam: Present: normal lung sounds bilaterally Cardiovascular Exam: Present: regular rate GI/Abdominal exam: Present: soft, normal bowel sounds. Absent: distended, tenderness, guarding, rebound, rigid Extremities exam: Present: other (DP/PT pulses of the right lower extremity intact. Pelvis stable upon rocking. No shortening or rotation. No obvious deformity.) Back exam: Present: other (No midline spinal tenderness to palpation.) Neurological exam: Present: alert, oriented X3 Skin exam: Present: warm, dry Course Vital Signs 12/07/23 12/07/23 20:31 23:07 Temperature 98.5 F Pulse Rate 63 82 Respiratory 18 18 Rate Blood Pressure 166/87 143/79 O2 Sat by Pulse 96 97 Oximetry Medical Decision Making - Medical Decision Making Was pt. sent in by a medical professional or institution (, PA, BUSINESS ANALYSIS PROFESSIONAL, urgent care, hospital, or fpc...) When possible be specific @ -No Did you speak to anyone other than the patient for history (EMS, parent, family, police, friend...)? What history was obtained from this source @ -No Did you review nursing and triage notes (agree or disagree)? Why? @ -I reviewed and agree with nursing and triage notes Were old charts reviewed (outside hosp., previous admission, EMS record, old EKG, old radiological studies, urgent care reports/EKG's, fpc records)? Report findings @ -No old charts were reviewed Differential Diagnosis (chest pain, altered mental status, abdominal pain women, abdominal pain men, vaginal bleeding, weakness, fever, dyspnea, syncope, headache, dizziness, GI bleed, back pain, seizure, CVA, palpatations, mental health, musculoskeletal)? @ -Differential Musculoskeletal Muscular strain, contusion, ligament sprain, fracture, arthritis, septic arthritis, bursitis, cellulitis, muscle spasm, nerve compression, DVT, arterial occlusion, herpes zoster, electrolyte abnormality, tumor.... This is not meant to be in all inclusive list EKG interpreted by me (3pts min.). @ -None X-rays interpreted by me (1pt min.). @ -X-ray of the pelvis interpreted by me which revealed no evidence of acute finding. CT interpreted by me (1pt min.). @ -CT of the pelvis interpreted me which does reveal fracture of the right greater trochanter. U/S interpreted by me (1pt. min.). @ -None done What testing was considered but not performed or refused? (CT, X-rays, U/S, labs)? Why? @ -None What meds were considered but not given or refused? Why? @ -None Did you discuss the management of the patient with other professionals (professionals i.e. DrCecelia, PA, BUSINESS ANALYSIS PROFESSIONAL, lab, RT, psych nurse, social psychologist, business unit controller, teacher, giving officer, manager case management)? Give summary @ -Discussed with Dr. Hicks, who accepts admission. Was smoking cessation discussed for >3mins.? @ -No Was critical care preformed (if so, how long)? @ -No Were there social determinants of health that impacted care today? How? (Homelessness, low income, unemployed, alcoholism, drug addiction, transportation, low edu. Level, literacy, decrease access to med. care, [facility], rehab)? @ -No Was there de-escalation of care discussed even if they declined (Discuss DNR or withdrawal of care, Hospice)? DNR status @ -No What co-morbidities impacted this encounter? (DM, HTN, Smoking, COPD, CAD, Cancer, CVA, ARF, Chemo, Hep., AIDS, mental health diagnosis, sleep apnea, morbid obesity)? @ -None Was patient admitted / discharged? Hospital course, mention meds given and route, prescriptions, significant lab abnormalities, going to OR and other pertinent info. @ -Admission 78-year-old female presenting to the ED with complaints of right hip pain after mechanical fall onto her right hip. No other injuries at this time. On examination upon ambulation requires significant assistance to try and ambulate and does not put any significant weight onto her right lower extremity. Initial imaging revealed no evidence of acute finding however CT scan does reveal a nondisplaced fracture of the right greater trochanter. Patient will be admitted to observation to orthopedics with consult to general medicine. Undiagnosed new problem with uncertain prognosis? @ -No Drug Therapy requiring intensive monitoring for toxicity (Heparin, Nitro, Insulin, Cardizem)? @ -No Were any procedures done? @ -No Diagnosis/symptom? @ -Right hip fracture Acute, or Chronic, or Acute on Chronic? @ -Acute Uncomplicated (without systemic symptoms) or Complicated (systemic symptoms)? @ -Uncomplicated Side effects of treatment? @ -No Exacerbation, Progression, or Severe Exacerbation? @ -No Poses a threat to life or bodily function? How? (Chest pain, USA, CO, pneumonia, PE, COPD, DKA, ARF, appy, cholecystitis, CVA, Diverticulitis, Homicidal, Suicidal, threat to staff... and all critical care pts) @ -Unlikely at this time Disposition Clinical Impression: Right femoral fracture Disposition: ADMITTED IP TO THIS HOSP Condition: Good Referrals: Kathryn Phillips DO [Primary Care Provider] - 1-2 days Time of Disposition: 00:40
--- NOTE | 2023-12-07 21:30 | XR ---
EXAMINATION TYPE: XR pelvis AP view DATE OF EXAM: 12/07/2023 9:23 PM CLINICAL INDICATION:Female, 78 years old with history of s/p fall r hip pain; COMPARISON: None TECHNIQUE: The pelvis was examined in a single projection. FINDINGS: There is no evidence of fracture or dislocation. There is no soft tissue abnormality. No a bnormal calcifications are present. Multilevel degenerative changes of the lower spine. The hips appear intact. Osteophyte formation of the superior acetabulum bilaterally with mild joint space narrowing. IMPRESSION: No acute osseous pathology. Mild degeneration changes of the hip.
[2023-12-07] MEDS: KETOROLAC 15 MG/ML 1 ML VIAL IVP STA (23:05)
--- NOTE | 2023-12-07 23:57 | CT ---
EXAM: CT Pelvis Without Intravenous Contrast CLINICAL HISTORY: ITS.REASON CT Reason: r/o r hip fx TECHNIQUE: Axial computed tomography images of the pelvis without intravenous contrast. This CT exam was performed using one or more of the following dose reduction techniques: automated exposure control, adjustment of the mA and/or kV according to patient size, and/or use of iterative reconstruction technique. COMPARISON: No relevant prior studies available. FINDINGS: Nondisplaced fracture of the RIGHT greater trochanter (posterior-superior facet). No pelvic fracture. Intact bilateral superior and inferior pubic rami. Degenerative changes of the bilateral hip joints, pubic symphysis, and sacroiliac joints. Diffuse osseous demineralization. Lumbar spondylosis and disc space narrowing. Intrapelvic contents are within normal limits for the patient's age. Intact sacrum. IMPRESSION: Nondisplaced fracture of the RIGHT greater trochanter (posterior-superior facet).
[2023-12-08] MEDS ORDERED: ACETAMINOPHEN TAB 325 MG TAB PO PRN (00:53)
[2023-12-08] MEDS ORDERED: NALOXONE 0.4 MG/ML 1 ML VIAL IV PRN (00:53)
[2023-12-08] MEDS: SODIUM CHLORIDE 0.9% 1,000 ML IV SCH (01:20)
[2023-12-08] MEDS: ACETAMINOPHEN TAB 500 MG TAB PO STA (01:22)
[2023-12-08] MEDS: HYDROmorphone 0.5 MG/0.5 ML SYRINGE IVP STA (01:25)
[2023-12-08 02:16] LABS: Basophils % (A) 0 %; Eosinophils # (A) 0.1 k/uL (0-0.7); Eosinophils % (A) 1 %; HCT 39.3 % (34.0-46.0); HGB 13.3 gm/dL (11.4-16.0); Lymphocytes % (A) 23 %; MCH 33.1 pg (25.0-35.0); MCHC 33.9 g/dL (31.0-37.0); MCV 97.9 fL (80.0-100.0); Mean Platelet Volume 8.3; Monocytes # (A) 0.5 k/uL (0-1.0); Monocytes % (A) 6 %; Neutrophils # (A) 5.8 k/uL (1.3-7.7); Neutrophils % (A) 69 %; Platelet Count 212 k/uL (150-450); RBC 4.02 m/uL (3.80-5.40); WBC 8.5 k/uL (3.8-10.6)
[2023-12-08 02:32] LABS: INR 0.9 (<1.2); Prothrombin Time 10.4 sec (10.0-12.5)
[2023-12-08 02:45] LABS: Sodium 135 mmol/L (137-145)
[2023-12-08 02:47] LABS: ALT 22 U/L (4-34); AST 31 U/L (14-36); African American GFR (CKD) 82 (>60 ml/min/1.73 sqM); Albumin 3.8 g/dL (3.5-5.0); Alkaline Phosphatase 73 U/L (38-126); Anion Gap 6 mmol/L; Blood Urea Nitrogen 25 mg/dL (7-17); Calcium 8.6 mg/dL (8.4-10.2); Carbon Dioxide 26 mmol/L (22-30); Chloride 103 mmol/L (98-107); Glucose 102 mg/dL (74-99); Non-African American GFR(CKD) 71 (>60 ml/min/1.73 sqM); Potassium 3.5 mmol/L (3.5-5.1); Total Bilirubin 0.5 mg/dL (0.2-1.3); Total Protein 6.1 g/dL (6.3-8.2)
[2023-12-08 03:00] LABS: Partial Thromboplastin Time 21.2 sec (22.0-30.0)
[2023-12-08] MEDS: HYDROmorphone 0.5 MG/0.5 ML SYRINGE IVP PRN (03:03)
--- NOTE | 2023-12-08 07:35 | XR ---
EXAMINATION TYPE: XR chest 1V portable DATE OF EXAM: 12/08/2023 COMPARISON: 04/16/2017 INDICATION: Presurgical clearance TECHNIQUE: Single frontal view of the chest is obtained. FINDINGS: The heart size is normal. The pulmonary vasculature is normal. The lungs are clear. IMPRESSION: 1. No acute pulmonary process.
--- NOTE | 2023-12-08 16:43 | MR ---
EXAMINATION TYPE: MR hip RT wo con DATE OF EXAM: 12/08/2023 3:55 PM CLINICAL INDICATION:Female, 78 years old with history of greater troch fracture, r/o intertroch exten mae; PHH, Greater troch fracture R/O intertroch extension COMPARISON: 12/07/2023. TECHNIQUE: Multiplanar multi-sequential magnetic resonance imaging of the right hip without contrast. IV Contrast: cc none FINDINGS: There is high T2 bony edema within the right proximal femur with low T1/T2 signal fracture line exten ding from the greater trochanter to the lesser trochanter. There is minimal displacement. Degeneratio n changes right hip with degenerative nondisplaced labrum with osteophyte formation suspected hematom a surrounding the right greater trochanter. Abnormal appearance of the endometrium with masslike areas identified. The urinary bladder is markedly dilated. IMPRESSION: 1. Right intertrochanteric fracture with minimal displacement with associated surrounding edema and hematoma. 2. Mild to moderate right hip osteoarthrosis. 3. Abnormal appearance of the endometrium further evaluation recommended with ultrasound for evaluat ion of the endometrium to rule out mass.
[2023-12-08] MEDS: TEMAZEPAM 7.5 MG CAP PO PRN (23:59)
[2023-12-09] MEDS ORDERED: ACETAMINOPHEN IV (For NPO) 1,000 MG in EMPTY BAG 1 BAG IVPB PRN (09:38)
--- NOTE | 2023-12-09 13:40 | XR ---
EXAMINATION TYPE: XR foot limited RT DATE OF EXAM: 12/09/2023 COMPARISON: None HISTORY: Fall, pain TECHNIQUE: 2 view right foot FINDINGS: Hallux valgus deformity is present. Joint spaces are preserved. No acute fracture or dislocation is evident. Plantar calcaneal heel spur is present. Follow up exams can be performed 7-10 days from acute trauma for continued pain IMPRESSION: 1. Hallux valgus deformity first digit right foot. 2. Plantar calcaneal heel spur. 3. No acute osseous abnormality.
--- NOTE | 2023-12-09 13:41 | XR ---
EXAMINATION TYPE: XR ankle limited RT DATE OF EXAM: 12/09/2023 COMPARISON: Two-view right ankle HISTORY: Pain TECHNIQUE: Right ankle is examined in 2 projections FINDINGS: Ankle mortise as visualized appears normal. Soft tissues appear normal. No acute displaced fractures evident. Plantar calcaneal heel spur is present. Follow up exams can be performed 7-10 days from acute trauma for continued pain. IMPRESSION: 1. No acute osseous abnormality right ankle 2. Plantar calcaneal heel spur
--- NOTE | 2023-12-09 15:02 | P.CONS ---
History of Present Illness - Reason for Consult Consult date: 12/09/23 Medical management, right hip fracture - History of Present Illness This is a very pleasant 78-year-old female that was brought to the ER via EMS as patient tripped and fell mechanically while gardening having severe right hip pain. Patient also reporting some right foot and ankle pain and inability to ambulate and put pressure on this. On arrival to the ER imaging was performed including the pelvis which showing some mild degenerative changes with no acute osseous pathology with no evidence of fracture or dislocation, CT pelvis showed a nondisplaced fracture of the right greater trochanter posterior-superior fa cet. Patient underwent MRI of the hip ordered by orthopedics showing a right intertrochanteric fracture with minimal displacement with associated surrounding edema and hematoma with mild to moderate right hip osteoarthrosis and also an incidental finding of an abnormal appearance of the endometrium recommending further evaluation with ultrasound to rule out a mass. Patient was admitted to orthopedic services and scheduled to undergo surgical intervention sometime this afternoon. Patient reports she follows with Dr. Phillips in the outpatient setting with a past medical history of skin cancer, angina, hypertension, osteoporosis, anxiety. Patient reports she has never been a smoker only occa sionally drinks socially and denies any other illicit drug use. Vital signs are stable other than mildly hypertensive. Labs reviewed and white count normal at 8.5, hemoglobin is 13.3, platelets are 212, sodium slightly low at 135 with a potassium of 3.5 and BUN/creatinine within normal limits. Patient is considered low risk and should proceed with surgical intervention to enhance quality of lif e as patient was independent and ambulatory prior to this. Patient is currently n.p.o. and will evaluate home meds and review and resume as appropriate once surgery has been completed. REVIEW OF SYSTEMS: CONSTITUTIONAL: No fever, no malaise, no fatigue. HEENT: No recent visual problems or hearing problems. Denied any sore throat. CARDIOVASCULAR: No chest pain, orthopnea, PND, no palpitations, no syncope. PULMONARY: No shortness of breath, no cough, no hemoptysis. GASTROINTESTINAL: No diarrhea, no nausea, no vomiting, no abdominal pain. NEUROLOGICAL: No headaches, no weakness, no numbness. HEMATOLOGICAL: Denies any bleeding or petechiae. GENITOURINARY: Denies any burning micturition, frequency, or urgency. MUSCULOSKELETAL/RHEUMATOLOGICAL: Reports some mild right hip discomfort, reports increasing intensity of the right foot and ankle pain ENDOCRINE: Denies any polyuria or polydipsia. The rest of the 14-point review of systems is negative. PHYSICAL EXAMINATION: GENERAL: The patient is alert and oriented x3, not in any acute distress. Well developed, well nourished. Elderly appearing HEENT: Pupils are round and equally reacting to light. EOMI. No scleral icterus. No conjunctival pallor. Normocephalic, atraumatic. No pharyngeal erythema. No thyromegaly. CARDIOVASCULAR: S1 and S2 present. No murmurs, rubs, or gallops. PULMONARY: Chest is clear to auscultation, no wheezing or crackles. ABDOMEN: Soft, nontender, nondistended, normoactive bowel sounds. No palpable organomegaly. MUSCULOSKELETAL: No joint swelling or deformity. Right hip limited mobility along with right lower extremity. Positive pedal pulses noted of the right lower extremity EXTREMITIES: No cyanosis, clubbing, or pedal edema. NEUROLOGICAL: Gross neurological examination did not reveal any focal deficits. Diffusely weak SKIN: No rashes. Assessment: Right intertrochanteric fracture with minimal displacement with associated surrounding edema and hematoma, status post mechanical fall, no LOC and no head trauma noted Right foot and ankle pain with limited mobility, secondary to the fall, no fractures noted on imaging other than a mild hallux valgus deformity of the first digit on the right foot and a plantar calcaneal heel spur Osteoarthrosis History of hypertension History of angina History of osteoporosis History of anxiety GI prophylaxis DVT prophylaxis Full code Plan: Patient is admitted under orthopedics currently n.p.o. as patient is scheduled to undergo surgical intervention of the right hip sometime today. After medical review, patient is considered low risk for surgical intervention and should proceed with surgery to optimize quality of life. Patient was in dependent prior to this fall Will have PT/OT therapy evaluate when surgically stable Continue DVT prophylaxis along with pain management per orthopedics Home medications reviewed and resumed as appropriate Will follow-up on repeat labs Incidental finding of abnormal appearance of the endometrium on imaging and will have patient follow-up outpatient Thank you kindly for this consultation. We will continue to follow with orthopedics during hospitalization The impression and plan of care has been dictated by Odilia Daniels, Nurse Practitioner as directed. Dr. Regi MD I have performed a history and examination and MDM of this patient, discussed the same with the dictator, and agree with the dictator's assessment and plan as written ,documented as a scribe. Based on total visit time, I have performed more than 50% of the visit. Past Medical History Past Medical History: Cancer, Chest Pain / Angina, Hypertension, Pneumonia Additional Past Medical History / Comment(s): Osteoporosis, skin cancer with removal, R breast pre-cancer with surgery, insomnia, past sinus headaches, past bilateral carpal tunnel syndrome, past L radial hairline fracture, bronchitis. History of Any Multi-Drug Resistant Organisms: None Reported Past Surgical History: Breast Surgery Additional Past Surgical History / Comment(s): right breast lumpectomy 07/19/2016, skin cancer removals Past Anesthesia/Blood Transfusion Reactions: No Reported Reaction Past Psychological History: Anxiety Additional Psychological History / Comment(s): Pt resides with her spouse. She is independent. Smoking Status: Never smoker Past Alcohol Use History: Occasional Past Drug Use History: None Reported - Past Family History Mother Family Medical History: Cancer Additional Family Medical History / Comment(s): Breast cancer that metastasized to the bone. Mother of this at the age of 47yrs. Father Family Medical History: Cancer, Coronary Artery Disease (CAD) Additional Family Medical History / Comment(s): Lip cancer. Father lived to be 93 yrs old. Medications and Allergies Home Medications Medication Instructions Recorded Confirmed Type Aspirin [Adult Low Dose Aspirin EC] 81 mg PO W/SUPPER@1700 09/01/12/08/23 History Chlorthalidone 25 mg PO DAILY@0800 12/08/23 12/08/23 History carvediloL [Coreg] 25 mg PO BID@0800,1700 12/08/23 12/08/23 History Allergies Allergy/AdvReac Type Severity Reaction Status Date / Time amlodipine besylate Allergy Swelling Verified 12/08/23 07:59 [From Norvasc] clonidine AdvReac Syncope Verified 12/08/23 07:59 methylprednisolone AdvReac Hallucinati Verified 12/08/23 07:59 ons sulfamethoxazole AdvReac DOESN'T Verified 12/08/23 07:59 [From Bactrim] WORK PER PATIENT trimethoprim [From Bactrim] AdvReac DOESN'T Verified 12/08/23 07:59 WORK PER PATIENT Physical Exam Vitals: Vital Signs Temp Pulse Pulse Resp BP BP Pulse Ox 12/09/23 07:15 98.0 F 71 18 155/88 97 12/09/23 01:18 98 F 77 17 121/72 96 12/08/23 21:31 98.3 F 72 20 153/80 96 12/08/23 20:35 17 12/08/23 20:16 74 16 115/60 97 12/08/23 16:27 73 18 153/79 97 12/08/23 10:44 70 18 108/50 97 Intake and Output 12/08/23 12/09/23 12/09/23 22:59 06:59 14:59 Output Total 525 Balance -525 Output: Urine 525 Other: Voiding Method External Catheter Weight 58.967 kg Results CBC & Chem 7: 12/08/23 02:03 12/08/23 02:03
[2023-12-09] MEDS: carvediloL 12.5 MG TAB PO SCH (16:56)
[2023-12-09] MEDS: IV FLUID CONTINUATION 1,000 ML IV ONE (17:20)
[2023-12-09] MEDS: ONDANSETRON 4 MG/2 ML VIAL IVP PRN (17:32)
[2023-12-09] MEDS ORDERED: fentaNYL (PF) 50 MCG/ML 2 ML AMP ONE (18:37)
[2023-12-09] MEDS ORDERED: KETAMINE HCL IN 0.9 % NACL 50 MG/5 ML SYRINGE ONE (18:37)
[2023-12-09] MEDS ORDERED: MIDAZOLAM 2 MG/2 ML VIAL ONE (18:37)
[2023-12-09] MEDS: SODIUM CHLORIDE 0.9% 50 ML with ceFAZolin 2,000 MG IV ONE (18:41)
--- NOTE | 2023-12-09 18:42 | P.HPOR ---
History of Present Illness The patient is a very pleasant previously healthy 78-year-old female who sustained a ground-level fall resulting in a right hip injury. She was painful and unable to walk. She came to the emergency department where x-rays showed a displaced greater trochanter fracture. She had a computed tomography scan which confirmed this. I met with the patient and her . She was playing of isolated right hip pain. She says she was unable to bear weight after her injury and has pain isolated to her. Past Medical History Past Medical History: Cancer, Chest Pain / Angina, Hypertension, Pneumonia Additional Past Medical History / Comment(s): Osteoporosis, skin cancer with removal, R breast pre-cancer with surgery, insomnia, past sinus headaches, past bilateral carpal tunnel syndrome, past L radial hairline fracture, bronchitis. History of Any Multi-Drug Resistant Organisms: None Reported Past Surgical History: Breast Surgery Additional Past Surgical History / Comment(s): right breast lumpectomy 07/19/2016, skin cancer removals Past Anesthesia/Blood Transfusion Reactions: No Reported Reaction Past Psychological History: Anxiety Additional Psychological History / Comment(s): Pt resides with her spouse. She is independent. Smoking Status: Never smoker Past Alcohol Use History: Occasional Past Drug Use History: None Reported - Past Family History Mother Family Medical History: Cancer Additional Family Medical History / Comment(s): Breast cancer that metastasized to the bone. Mother of this at the age of 47yrs. Father Family Medical History: Cancer, Coronary Artery Disease (CAD) Additional Family Medical History / Comment(s): Lip cancer. Father lived to be 93 yrs old. Medications and Allergies Home Medications Medication Instructions Recorded Confirmed Type Aspirin [Adult Low Dose Aspirin EC] 81 mg PO W/SUPPER@1700 09/02/15 12/09/23 History Chlorthalidone 25 mg PO DAILY@0800 12/08/23 12/08/23 History carvediloL [Coreg] 25 mg PO BID@0800,1700 12/08/23 12/08/23 History Allergies Allergy/AdvReac Type Severity Reaction Status Date / Time amlodipine besylate Allergy Swelling Verified 12/09/23 17:32 [From [facility]] clonidine AdvReac Syncope Verified 12/09/23 17:32 methylprednisolone AdvReac Hallucinati Verified 12/09/23 17:32 ons sulfamethoxazole AdvReac DOESN'T Verified 12/09/23 17:32 [From Bactrim] WORK PER PATIENT trimethoprim [From Bactrim] AdvReac DOESN'T Verified 12/09/23 17:32 WORK PER PATIENT Physical Examination Patient is resting on the hospital bed. She is alert and able to answer questions. Her head is normocephalic and atraumatic. She damage has not been breathing symmetric chest expansion. She has tenderness over the right greater trochanter and pain with any attempts at passive range of motion of the hip. Results X-rays and computed tomography scan of the right hip show a displaced greater trochanter fracture. MRI of the right hip shows intertrochanteric extension greater than 50%. - Labs Labs: H & H 12/08/23 Range/Units 02:03 Hgb 13.3 (11.4-16.0) gm/dL Hct 39.3 (34.0-46.0) % Coagulation 12/08/23 Range/Units 02:03 INR 0.9 (<1.2) Result Diagrams: 12/08/23 02:03 12/08/23 02:03 Assessment and Plan Assessment: Right greater trochanter fracture with MRI evidence of intertrochanteric extension greater than 50% Plan: With the patient and her following the MRI to discuss treatment options. Her MRI showed intertrochanteric extension of over 50%. We discussed that this can be managed either surgically or nonsurgically. Nonsurgical treatment would include protected weightbearing, use of a walker, and serial x-rays. This would avoid surgery but would risk displacement and would require protected weightbearing. Surgical treatment would involve a short intramedullary hip screw. This would prophylactically stabilize the fracture and prevent displacement as well as allow early weightbearing. The downside is it requires a surgical procedure. The patient was given ample time to ask questions. After weighing the pros and cons of both nonsurgical and surgical treatment the patient and her requested proceeding with surgery. We will proceed with surgery once she is cleared from internal medicine. She is to remain strictly nonweightbearing on bedrest until surgery.
[2023-12-09] MEDS: LACTATED RINGERS 1,000 ML IV ONE (19:25)
[2023-12-09] MEDS ORDERED: NALOXONE 0.4 MG/ML 1 ML VIAL IV PRN (20:12)
[2023-12-09] MEDS ORDERED: HYDROcodone/APAP 5-325MG 1 EACH TAB PO PRN (20:12)
[2023-12-09] MEDS ORDERED: MAGNESIUM HYDROXIDE 2,400 MG/30 ML CUP PO PRN (20:12)
--- NOTE | 2023-12-09 20:12 | P.OP ---
Date of Procedure: 12/09/23 Preoperative Diagnosis: Right greater trochanter fracture with intertrochanteric extension greater than 50% of the neck Postoperative Diagnosis: Same Procedure(s) Performed: Operative fixation of right intertrochanteric hip fracture with intramedullary hip screw Anesthesia: spinal Surgeon: Cricket Hicks Director Of Investigations #1: Duglas Aaron Estimated Blood Loss (ml): 100 IV fluids (ml): 700 Pathology: none sent Condition: stable Disposition: PACU Indications for Procedure: The patient is a very pleasant ultimately healthy 78-year-old female who sustained a ground-level fall resulting in an isolated. Her right hip. X-rays and computed tomography scan showed a minimally displaced greater trochanter fracture. An MRI was obtained which showed intertrochanteric extension greater than 50% of the neck. I met with the patient and her to discuss treatment options. We discussed non-surgical treatment with protected weightbearin use of a walker and serial x-rays. We also discussed surgical treatment with an intramedullary hip screw. The patient and her were given both options and decided to proceed with surgery. We discussed the potential risks and complications of this surgical procedure including but certainly not limited to risks from anesthesia, superficial infection, deep infection, fracture nonunion, fracture malunion, hardware failure including broken hardware, varus collapse with lag screw cut out of the femoral head, progression of hip arthritis, limb length discrepancy, symptomatic hardware, need for further surgery including hardware removal and conversion to arthroplasty, DVT, PE, acute coronary event, pressure ulcers, urinary tract infection, failure to thrive, an inability to regain preinjury level of function, and possibly . The patient and their family understand these potential complications and also awknowledge that other less common complications are possible. They provided both their verbal and written consent to go forward with operative fixation of their hip fracture with an intramedullary hip screw. Description of Procedure: The patient was identified in preoperative holding and the correct operative extremity was marked with my initials. I reviewed the consent form with the patient and their family and all of their questions were answered. The patient was then brought back to the operating room by anesthesia. Anesthesia, preoperative antibiotics, and tranexamic acid were given by the anesthesia team while on the rney. Both ankles were padded with webril and boots for the Slater table were applied. The patient was then carefully transferred onto the Slater table. A perineal post was immediately placed. The contralateral arm was secured on a well-padded arm robb. The ipsilateral arm was draped across the chest and secured with a pillow, foam, and paper tape to allow access to the proximal femur. Nonsterile drapes were applied to the operative extremity. The height of the table was elevated and the contralateral extremity was dropped towards the floor to facilitate imaging. A timeout was performed identifying the correct patient, operative extremity, and procedure. Fluoroscopy was brought in to assess the fracture. A provisional reduction was performed using longitudinal traction, adduction, and internal rotation. An AP and lateral view were obtained to assess the reduction. The operative extremity was then prepped and draped in the standard sterile fashion. A straight incision was made at the tip of the greater trochanter and extended proximally for 3 cm. Skin and subcutaneous tissues were incised sharply. The underlying fascia was incised in line with the skin incision. An awl was placed just medial to the tip of the greater trochanter on the AP view and colinear with the canal on the lateral view. A 3.2 mm guide pin was then advanced into the proximal femur. The position of the guidepin was verified with fluoroscopy. An opening reamer and soft tissue cannula were placed over the guidepin and used to open the proximal femur to the level of the lesser trochanter. The 3.2 mm guide pin and opening reamer were removed. A short gamma nail was dispensed, hooked up to the targeting arm and I verified that the trochar through the targeting arm lined up with the slots on the nail. The nail was then impacted into the proximal femur until the appropriate depth had been reached. A small stab incision was made over the lateral aspect of the femur using the targeting arm as a reference for the lag screw. Incision was carried down to the skin and fascia down to the lateral cortex of the femur. The trocar was then placed up to the lateral cortex of the femur and a guidepin was placed in the low center position on the AP view and centered in the femoral head on the lateral view. Once the position of the guidewire was verified, we reamed to appropriate depth and placed a lag screw over the guidewire and into the femoral head. The position of the lag screw was assessed with fluoroscopy. The guidewire was then removed from the femoral head. The set screw was placed proximally, brought fully down and then released a quarter turn to allow compression. A final stab incision was made over the lateral femur at the site of the distal interlocking screw, again using the targeting arm as a reference. The trocar and sleeve were placed to the lateral cortex of the femur. We then drilled and placed a distal interlocking screw. Final fluoroscopic images were taken showing excellent reduction of the fracture and appropriate position of the implants. All wounds were thoroughly irrigated and closed in layers. Sterile dressings were applied. The drapes were taken down, the patient was transferred off the Slater table, and was brought to recovery having tolerated the procedure well. Duglas Aaron PA-C was required as a skilled radiology physician assistant for patient positioning, draping, exposure, retraction, closure of wound, and application of dressings PLAN: The patient can weight-bear as tolerated on their operative extremity. 2 doses of postoperative antibiotics. DVT prophylaxis with aspirin 81 mg twice a day starting the day of surgery. Dressing change on postoperative day #2. Appreciate Internal Medical assistance with perioperative medical management. Discharge planning in process.
--- NOTE | 2023-12-09 20:20 | XR ---
EXAMINATION TYPE: XR Hip Complete RT DATE OF EXAM: 12/09/2023 7:59 PM CLINICAL INDICATION:Female, 78 years old with history of Rt Hip Gamma Nail; [facility] Intraoperative/procedural fluoroscopic services were provided. Total fluoroscopy time is 1 minute 12 seconds with a total of 4 submitted images to PACS. Please see the operative/procedural note for furt her details. DAP: 3.7 mGym2 IMPRESSION: Intraoperative fluoroscopic exam. Please see dedicated OR report for further details.
[2023-12-09 22:19] LABS: Basophils % (A) 0 %; Eosinophils # (A) 0.1 k/uL (0-0.7); Eosinophils % (A) 1 %; HCT 37.1 % (34.0-46.0); HGB 12.1 gm/dL (11.4-16.0); Lymphocytes # (A) 1.4 k/uL (1.0-4.8); Lymphocytes % (A) 16 %; MCH 33.5 pg (25.0-35.0); MCHC 32.5 g/dL (31.0-37.0); Macrocytosis Slight; Mean Platelet Volume 7.9; Monocytes # (A) 0.4 k/uL (0-1.0); Monocytes % (A) 5 %; Neutrophils # (A) 6.8 k/uL (1.3-7.7); Neutrophils % (A) 77 %; Platelet Count 164 k/uL (150-450); RBC 3.59 m/uL (3.80-5.40); RDW 12.7 % (11.5-15.5); WBC 8.8 k/uL (3.8-10.6)
[2023-12-09 22:28] LABS: MCV 103.3 fL (80.0-100.0)
[2023-12-09] MEDS: SODIUM CHLORIDE 0.9% 1,000 ML IV SCH (22:32)
[2023-12-09] MEDS: HYDROcodone/APAP 10-325MG 1 EACH TAB PO PRN (22:33)
[2023-12-09] MEDS: SENNOSIDES-DOCUSATE SODIUM 1 EACH TAB PO SCH (22:35)
[2023-12-09] MEDS: ASPIRIN 81 MG PO SCH (22:36)
[2023-12-09] MEDS: LACTATED RINGERS 1,000 ML IV SCH (23:21)
[2023-12-09] MEDS: HYDROmorphone 0.5 MG/0.5 ML SYRINGE IVP PRN (23:39)
--- NOTE | 2023-12-10 08:20 | FL ---
EXAMINATION TYPE: FL guidance operating room RT HIP GAMMA NAIL. FL TIME 1 MIN 12.2 SECONDS. DAP 3.7174 gycm2. 4 images sent into PACS. Dr Hicks .
--- NOTE | 2023-12-10 08:31 | P.PN ---
Subjective Progress Note Date: 12/10/23 Principal diagnosis: Right greater trochanter fracture with intertrochanteric extension greater than 50% of the neck There were no acute events overnight. The patient is doing well this morning. The pain in their right hip is improved since surgery. Objective - Vital Signs Vital signs: Vital Signs Temp 97.8 F 12/10/23 01:28 Pulse 90 12/10/23 01:28 Resp 20 12/10/23 01:28 BP 126/75 12/10/23 01:28 Pulse Ox 95 12/10/23 01:28 FiO2 Intake & Output 12/09/23 12/10/23 12/10/23 18:59 06:59 18:59 Intake Total 1050 400 Output Total 400 100 Balance 650 300 Intake: IV 1050 400 Output: Urine 400 Estimated Blood Loss 100 Other: Voiding Method Toilet # Voids 1 - Exam On exam the patient is resting comfortably in bed. No apparent distress. They are alert and able to answer questions. On inspection of the right hip the dressings are intact. There is a small amount of strikethrough in the distal two dressings. There is no drainage. There is mild swelling in the right thigh. Femoral nerve function is intact. The patient is able to actively plantarflex and dorsiflex the ankle and toes. - Labs CBC & Chem 7: 12/09/23 22:05 12/08/23 02:03 Labs: Abnormal Lab Results - Last 24 Hours (Table) 12/09/23 Range/Units 22:05 RBC 3.59 L (3.80-5.40) m/uL MCV 103.3 H D (80.0-100.0) fL Assessment and Plan Assessment: Right greater trochanter fracture with intertrochanteric extension greater than 50% of the neck POD#1 Operative fixation of right intertrochanteric hip fracture with intramedullary hip screw Plan: Weight-bear as tolerated on the operative extremity with walker. Leave surgical dressing in place. Patient will work with physical therapy today. Discharge plan for tonight or tomorrow and home versus rehab pending physical therapy.
[2023-12-10 08:38] LABS: Basophils # (A) 0.02 X 10*3/uL (0.00-0.10); Basophils % (A) 0.2 %; Eosinophils # (A) 0.06 X 10*3/uL (0.04-0.35); Eosinophils % (A) 0.7 %; HCT 35.4 % (37.2-46.3); HGB 11.4 g/dL (12.0-15.0); Lymphocytes # (A) 1.49 X 10*3/uL (0.90-5.00); Lymphocytes % (A) 17.3 %; MCH 32.9 pg (27.0-32.0); MCHC 32.2 g/dL (32.0-37.0); Mean Platelet Volume 10.5 FL (9.5-12.2); NRBC Per 100 WBC 0 X 10*3/uL (0.00-0.01); Neutrophils # (A) 6.43 X 10*3/uL (1.80-7.70); Neutrophils % (A) 74.6 %; Platelet Count 176 X 10*3/uL (140-440); RBC 3.47 X 10*6/uL (4.10-5.20); RDW 13.2 % (11.5-14.5); WBC 8.62 X 10*3/uL (4.50-10.00)
[2023-12-10 08:47] LABS: Chloride 105 mmol/L (96-109); Glucose 108 mg/dL (70-110); Potassium 3.6 mmol/L (3.5-5.5); Sodium 139 mmol/L (135-145)
[2023-12-10 08:48] LABS: Calcium 8.2 mg/dL (8.7-10.3); Carbon Dioxide 20.5 mmol/L (21.6-31.8); Magnesium 1.9 mg/dL (1.5-2.4)
--- NOTE | 2023-12-10 16:13 | P.PN ---
Subjective Progress Note Date: 12/10/23 - Reason for Consult Consult date: 12/09/23 Medical management, right hip fracture - History of Present Illness This is a very pleasant 78-year-old female that was brought to the ER via EMS as patient tripped and fell mechanically while gardening having severe right hip pain. Patient also reporting some right foot and ankle pain and inability to ambulate and put pressure on this. On arrival to the ER imaging was performed including the pelvis which showing some mild degenerative changes with no acute osseous pathology with no evidence of fracture or dislocation, CT pelvis showed a nondisplaced fracture of the right greater trochanter posterior-superior facet. Patient underwent MRI of the hip ordered by orthopedics showing a right intertrochanteric fracture with minimal displacement with associated surrounding edema and hematoma with mild to moderate right hip osteoarthrosis and also an incidental finding of an abnormal appearance of the endometrium recommending further evaluation with ultrasound to rule out a mass. Patient was admitted to orthopedic services and scheduled to undergo surgical intervention sometime this afternoon. Patient reports she follows with Dr. Phillips in the outpatient setting with a past medical history of skin cancer, angina, hypertension, osteoporosis, anxiety. Patient reports she has never been a smoker only occasionally drinks socially and denies any other illicit drug use. Vital signs are stable other than mildly hypertensive. Labs reviewed and white count normal at 8.5, hemoglobin is 13.3, platelets are 212, sodium slightly low at 135 with a potassium of 3.5 and BUN/creatinine within normal limits. Patient is considered low risk and should proceed with surgical intervention to enhance quality of life as patient was independent and ambulatory prior to this. Patient is c urrently n.p.o. and will evaluate home meds and review and resume as appropriate once surgery has been completed. 12/10/2023 Patient is seen in follow-up today and reporting continued right hip pain currently awaiting PT/OT therapy evaluation. Orthopedics following as attending recommending monitoring overnight for pain management as well as improved movement. Case management following in the event patient may require ECF. Patient with incentive spirometer at the bedside encouraged to continue using at least 10 times every hour while awake. Blood pressures are stable and appropriate home medications have been resumed. Patient is afebrile with no reports of chest pain or shortness of breath. Patient is voiding with no difficulties and reports the passing gas but has not had a bowel movement as of yet. Continue with stool softeners. Review of systems: Constitutional: No reports of fatigue, fever, or chills Cardiovascular: No reports of chest pain or palpitations Respiratory: No reports of shortness of breath or cough GI: No reports of nausea, vomiting, or diarrhea reports passing gas with no bowel movement as of yet : No reports of dysuria or retention Neurovascular: Reports of generalized weakness and right hip pain All medications have been reviewed The rest of the 14-point review of systems is negative. PHYSICAL EXAMINATION: GENERAL: The patient is alert and oriented x3, not in any acute distress. Well developed, well nourished. Elderly appearing HEENT: Pupils are round and equally reacting to light. EOMI. No scleral icterus. No conjunctival pallor. Normocephalic, atraumatic. No pharyngeal erythema. No thyromegaly. CARDIOVASCULAR: S1 and S2 present. No murmurs, rubs, or gallops. PULMONARY: Chest is clear to auscultation, no wheezing or crackles. ABDOMEN: Soft, nontender, nondistended, normoactive bowel sounds. No palpable organomegaly. MUSCULOSKELETAL: No joint swelling or deformity. Right hip limited mobility along with right lower extremity. Surgical hip dressing is dry and intact with minimal swelling noted. Positive pedal pulses noted of the right lower extremity EXTREMITIES: No cyanosis, clubbing, or pedal edema. NEUROLOGICAL: Gross neurological examination did not reveal any focal deficits. Diffusely weak SKIN: No rashes. Assessment: Right intertrochanteric fracture with minimal displacement with associated surrounding edema and hematoma, status post mechanical fall, no LOC and no head trauma noted, status post intertrochanteric medullary nail screwing Right foot and ankle pain with limited mobility, secondary to the fall, no fractures noted on imaging other than a mild hallux valgus deformity of the first digit on the right foot and a plantar calcaneal heel spur Osteoarthrosis History of hypertension History of angina History of osteoporosis History of anxiety GI prophylaxis DVT prophylaxis Full code Plan: Patient is admitted under orthopedics status post surgical intervention of the right hip, postop day 1 After medical review, patient is considered low risk for surgical intervention and should proceed with surgery to optimize quality of life. Patient was independent prior to this fall Patient awaiting to have PT/OT therapy evaluate when surgically stable Continue with overnight monitoring for improvements in pain and reevaluation by PT/OT therapy tomorrow Continue DVT prophylaxis along with pain management per orthopedics Home medications reviewed and resumed as appropriate Incidental finding of abnormal appearance of the endometrium on imaging and will have patient follow-up outpatient Possible discharge planning in 24 hours versus possible ECF and will await reevaluation from PT/OT therapy Patient is medically stable once cleared by orthopedics Thank you kindly for this consultation. We will continue to follow with orthopedics during hospitalization The impression and plan of care has been dictated by Odilia Daniels, Nurse Practitioner as directed. Dr. Regi MD I have performed a history and examination and MDM of this patient, discussed the same with the dictator, and agree with the dictator's assessment and plan as written ,documented as a scribe. Based on total visit time, I have performed more than 50% of the visit. Objective - Vital Signs Vital signs: Vital Signs Temp 98.3 F 12/10/23 14:00 Pulse 73 12/10/23 14:00 Resp 16 12/10/23 14:00 BP 123/70 12/10/23 14:00 Pulse Ox 98 12/10/23 14:00 FiO2 Intake & Output 12/09/23 12/10/23 12/10/23 18:59 06:59 18:59 Intake Total 1050 400 Output Total 400 100 Balance 650 300 Intake: IV 1050 400 Output: Urine 400 Estimated Blood Loss 100 Other: Voiding Method Toilet Toilet # Voids 1 - Labs CBC & Chem 7: 12/10/23 03:19 12/10/23 03:19 Labs: Abnormal Lab Results - Last 24 Hours (Table) 12/09/23 12/10/23 12/10/23 Range/Units 22:05 03:19 03:19 RBC 3.59 L 3.47 L (3.80-5.40) m/uL Hgb 11.4 L (12.0-15.0) g/dL Hct 35.4 L (37.2-46.3) % MCV 103.3 H D 102.0 H (80.0-100.0) fL MCH 32.9 H (27.0-32.0) pg Carbon Dioxide 20.5 L (21.6-31.8) mmol/L Anion Gap 13.50 H (4.00-12.00) mmol/L Calcium 8.2 L (8.7-10.3) mg/dL
[2023-12-11 01:27] VITALS: RESP 18
[2023-12-11 03:07] VITALS: TEMP 97.8
[2023-12-11 07:39] VITALS: BP 157/86; PULSE 76
--- NOTE | 2023-12-11 09:44 | P.DS ---
Providers Date of admission: 12/08/23 09:27 Attending physician: Cricket Hicks Consults: 12/08/23 00:53 Consult Physician Urgent Consulting Provider: Tyler Jim Consult Reason/Comments: r femur fracture, medical management Do you want consulting provider notified?: Yes Primary care physician: Kathryn Phillips DO Hospital Course: the patient's very pleasant 78-year-old female who was admitted under my care with a right hip fracture. She had an MRI which showed intertrochanteric extension. I met with the patient has been to discuss treatment options including both nonsurgical and surgical treatment. Ultimately decided to go forward with surgery. Following an attempted surgery she was transferred to the orthopedic floor. She received 2 doses of postoperative antibiotics. She was started on aspirin for DVT prophylaxis. She was transitioned from IV to oral pain medications. Internal medicine managed her perioperative medical issues. She worked with physical therapy and was ultimately cleared for discharge home with home health services. I note the patient on postoperative day #2 when she was doing well. Her dressings were intact. Her thigh and calf are soft. Motor and sensory nerve function was intact. Patient Condition at Discharge: Good Plan - Discharge Summary Discharge Rx Participant: Yes New Discharge Prescriptions: New HYDROcodone/APAP 5-325MG [Douglass 5-325] 1 - 2 tab PO Q6HR PRN #32 tab PRN Reason: Pain Aspirin 81 mg PO BID #60 tab Docusate [Colace] 100 mg PO BID #60 capsule Cholecalciferol (Vitamin D3) [Vitamin D3 (50 Mcg = 2000 Iu) Chew Tab] 2,000 unit PO DAILY #90 tab No Action Aspirin [Adult Low Dose Aspirin EC] 81 mg PO W/SUPPER@1700 Chlorthalidone 25 mg PO DAILY@0800 carvediloL [Coreg] 25 mg PO BID@0800,1700 Discharge Medication List Aspirin [Adult Low Dose Aspirin EC] 81 mg PO W/SUPPER@1700 09/02/15 [History] Chlorthalidone 25 mg PO DAILY@0800 12/08/23 [History] carvediloL [Coreg] 25 mg PO BID@0800,1700 12/08/23 [History] Aspirin 81 mg PO BID #60 tab 12/11/23 [Rx] Cholecalciferol (Vitamin D3) [Vitamin D3 (50 Mcg = 2000 Iu) Chew Tab] 2,000 unit PO DAILY #90 tab 12/11/23 [Rx] Docusate [Colace] 100 mg PO BID #60 capsule 12/11/23 [Rx] HYDROcodone/APAP 5-325MG [Douglass 5-325] 1 - 2 tab PO Q6HR PRN #32 tab 12/11/23 [Rx] Follow up Appointment(s)/Referral(s): Kathryn Phillips DO [Primary Care Provider] - 1-2 days [facility], [NON-STAFF] - 1-2 Days ([facility] will call you to schedule your in home nursing, physical therapy, and occupational therapy visits. ) Cricket Hicks MD [Medical Doctor] - 2 Weeks Activity/Diet/Wound Care/Special Instructions: 1. Weight-bear as tolerated on your operative extremity unless instructed otherwise. Use a walker or other assistive device to ambulate. 2. Leave surgical dressing in place. If your dressing becomes saturated with blood, there is drainage, or the dressing becomes loose please contact the office. 3. It is okay to shower with your surgical dressing, but do not submerge in water (no hot tubs, bath's, swimming etc.) 4. Make sure to take her blood clot prevention medication as prescribed (aspirin, Eliquis, Xarelto, and Plavix are commonly prescribed medications for blood clot prevention) 5. While taking Douglass or Percocet for pain make sure you're taking a stool softener (Colace) and drink lots of water. 6. Keep all follow-up appointments as scheduled. You will usually be seen in 1-2 weeks following surgery. 7. Please contact the office with any questions or concerns [phone] Discharge Disposition: HOME WITH HOME HEALTH SERVICES
== END 2023-12-11 11:42 | disposition home health service (06) | DRG 482 ==
LOC: EC 20:30 → 4SSUR 12-08 00:56 → OBSVTOIN 12-08 09:27 → 4SSUR 12-08 11:00 → UNDODISIN 12-09 16:19
PROVIDERS: ADMIT Orthopaedic Surgery; ATTEND Orthopaedic Surgery
PROC: 0QS606Z Reposition Right Upper Femur with Intramedullary Internal Fixation Device, Open Approach (ICD-10-PCS; principal; 2023-12-09 11:00)
DX: S72.141A Displaced intertrochanteric fracture of right femur, initial encounter for closed fracture (principal); I10 Essential (primary) hypertension; M20.11 Hallux valgus (acquired), right foot; M77.31 Calcaneal spur, right foot; M81.0 Age-related osteoporosis without current pathological fracture; W18.09XA Striking against other object with subsequent fall, initial encounter; Y93.H2 Activity, gardening and landscaping; Y92.007 Garden or yard of unspecified non-institutional (private) residence as the place of occurrence of the external cause; Z79.82 Long term (current) use of aspirin; Z85.828 Personal history of other malignant neoplasm of skin; Z79.899 Other long term (current) drug therapy; Z88.2 Allergy status to sulfonamides; Z88.8 Allergy status to other drugs, medicaments and biological substances
CPT/HCPCS: 51702; 71045; 72170; 72192; 73502; 80048; 80053; 83735; 85025; 85610; 85730; 86850; 86900; 86901; 93005; 96361; 96374; 96375; 99285